=== PATIENT | female | born 1965 | race Caucasian/White ===

== ENCOUNTER 2018-07-27 20:21 | Observation (INO) | payer BC, OTHER ==
--- NOTE | 2018-07-27 20:56 | PDOC ---
Attending Attestation - HPI HPI: This patient is a 53 year old female with PMHx of IDDM, HLD, HTN, seizure disorder, diabetic neuropathy, [place], chronic pancreatitis, depression and other psych issues, LENIN on CPAP, asthma, with complaints of 1 day history of " pancreas pain" clarified as RUQ and RLQ pain, polydipsia, polyuria, polyphagia, 2 episodes of diarrhea, +chronic nausea and back pain 2/2 chronic pancreatitis, chills, dizziness clarified as near-syncopal sensation (reports frequent falls but denies recent fall). States she was told by PMD that her blood sugar was very high and was instructed to present to EDs an appointment on Aug 02 for endoscopy by her GI doctor at [facility]. Patient states that her diet is very limited due to her 'pancreas' pain and consists of applesauce, jello, and mainly veggies. She also reports that she is very depressed over her recent weightloss (140lbs) over the past 2 months. Social Hx: . Smokes 2 cigarettes daily, no EtOH, no illicit substances. PSHx of bowel surgery 2/2 obstruction 3 prior hospitalizations for hyperglycemic states requiring insulin gtt. <Aditi Aragon - Last Filed: 07/27/18 22:08> - Resident Resident Name: Jarrod Santos - ED Attending Attestation I have performed the following: I have examined & evaluated the patient, The case was reviewed & discussed with the resident, I agree w/resident's findings & plan, Exceptions are as noted - Physicial Exam PE: 07/27/18 23:11 GENERAL: The patient is in no acute distress, pt intermittently tearful HEAD: Normal EYES: PERRLA, EOMI, sclera anicteric, conjunctiva clear. ENT: Ears normal, nares patent, oropharynx clear without exudates. Dry mucous membranes. Edentous. NECK: Normal range of motion, supple without lymphadenopathy, JVD, or masses. LUNGS: Breath sounds equal, clear to auscultation bilaterally. No wheezes HEART:Regular rate and rhythm, normal S1 and S2 without murmur, rub or gallop. ABDOMEN: Soft, nontender, normoactive bowel sounds. No guarding EXTREMITIES: Normal range of motion, no edema. NEUROLOGICAL: Cranial nerves II through XII grossly intact. Normal speech. No focal neurological deficits. MUSCULOSKELETAL: Back non-tender to palpation SKIN: Warm, Dry, normal turgor, no rashes or lesions noted. - Medical Decision Making 07/27/18 23:10 Laboratory Tests 07/27/18 07/27/18 21:45 21:59 WBC 9.4 Hgb 14.1 Hct 40.5 Plt Count 305 Urine Blood Negative Urine Nitrite Negative Ur Leukocyte Esterase Negative 07/27/18 23:32 Laboratory Tests 07/27/18 22:47 Acetone, Qual Positive,trace 07/28/18 00:08 Laboratory Tests 07/27/18 22:47 Sodium 136 Potassium 4.1 Chloride 101 Carbon Dioxide 27 BUN 7 Creatinine 0.8 Random Glucose 538 H* Continue IV hydration Will give insulin Will place on observation <Gloria Lynch - Last Filed: 07/28/18 00:09>
[2018-07-27] MEDS ORDERED: LACTATED RINGERS SOLUTION 1000 ML INFUS.BAG IV ONE (20:57)
[2018-07-27] MEDS ORDERED: METOCLOPRAMIDE HCL INJECTION 10 MG/2 ML VIAL IVPUSH ONE (21:13)
--- NOTE | 2018-07-27 21:13 | PDOC ---
History of Present Illness - General Chief Complaint: Blood Sugar Problem Stated Complaint: HYPERGLYCEMIA Time Seen by Provider: 07/27/18 20:34 History Source: Patient Exam Limitations: No Limitations - History of Present Illness Initial Comments: Patient is a 53 y/o F w/ PMHx IDDM, HLD, HTN, Sz disorder, diabetic neuropathy, [place], chronic pancreatitis, depression and other psychiatric issues, LENIN on CPAP, asthma, PSHx of bowel surgery 2/2 obstruction, 3 prior hospitalizations for hyperglycemic states requiring insulin gtt. C/o 1 day h/o "pancreas pain" clarified as RUQ and RLQ pain, polydipsia and, polyuria 2 episodes of diarrhea, +chronic nausea and back pain 2/2 chronic pancreatitis, +chills, +dizziness clarified as near-syncopal sensation (reports frequent falls but denies recent fall). States she was told by PMD that her blood sugar was very high and was instructed to present to ED. Additionally reports 140lb weight loss over past 2 months 2/2 chronic pancreatitis. Smokes 2 cigarettes daily, no EtOH, no illicit substances. Home medication list obtained over phone from home health aide: Creon, oxycodone 30mg, seroquel, lexapro, zofran, escitalopram, albuterol, topamax, ASA 81, Xanax 2mg, Gabapentin 800 TID, Humalog. 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 07/27/18 21:04 Past History - Travel Traveled outside of the country in the last 30 days: No Close contact w/someone who was outside of country & ill: No - Past Medical History Allergies/Adverse Reactions: Allergies Allergy/AdvReac Type Severity Reaction Status Date / Time No Known Allergies Allergy Verified 07/27/18 20:24 - Suicide/Smoking/Psychosocial Hx Smoking History: Never smoked Have you smoked in the past 12 months: No Information on smoking cessation initiated: No Hx Alcohol Use: No Drug/Substance Use Hx: No Review of Systems - Review of Systems Comments:: As per HPI 07/27/18 21:14 *Physical Exam - Vital Signs Last Vital Signs Temp Pulse Resp BP Pulse Ox 97.3 F L 93 H 18 140/92 96 07/27/18 20:24 07/27/18 20:24 07/27/18 20:24 07/27/18 20:24 07/27/18 20:24 - Physical Exam Comments: Gen: A&Ox3, NAD HEENT: NC/AT, PERRLA, EOMI, MMM Neck: Supple, NT, no LAD, no JVD CV: RRR no m/r/g Resp: mild diffuse wheezing Abd: +bs, soft, TTP in RLQ and RUQ Ext: 2+ pulses, wwp, no edema MSK: right flank tenderness, no CVA tenderness, no focal spinal tenderness Neuro: no CN deficits, 5/5 motor strength throughout, Pt affirms total loss of sensation in LE distal to knees b/l and UE distal to wrists b/l Psych: tangential, confused Skin: warm, dry, normal turgor 07/27/18 21:17 Moderate Sedation - Procedure Monitoring Vital Signs: Procedure Monitoring Vital Signs Temperature 97.3 F L 07/27/18 20:24 Pulse Rate 93 H 07/27/18 20:24 Respiratory Rate 18 07/27/18 20:24 Blood Pressure 140/92 07/27/18 20:24 O2 Sat by Pulse Oximetry (%) 96 07/27/18 20:24 ED Treatment Course - LABORATORY CBC & Chemistry Diagram: 07/27/18 21:45 07/27/18 22:47 - RADIOLOGY Radiology Studies Ordered: Category Date Time Status ABDOMEN US [US] Stat Ultrasound 07/27/18 20:57 Ordered Medical Decision Making - Medical Decision Making H&P raise broad differential including DKA/HHS, gastroparesis, pancreatitis flare. Ordered CBC, CMP, Mg, Phos, Lipase, UA, serum acetone, FSG, Trop, EKG, RUQ US. 1L bolus LR, Reglan empirically for nausea and possible gastroparesis, 1 duoneb. Will await glucose and other lab results for further decision-making. 07/27/18 21:02 CBC wnl. 07/27/18 22:02 Chemistries hemolyzed. Re-ordered. 07/27/18 22:08 UA 3+ glucose otherwise negative. 07/27/18 22:32 FSG over-range. 07/27/18 22:36 EKG benign. Positive trace acetone. 07/27/18 23:31 Glucose 538, K wnl. Will give 10 units regular insulin now and in 2 hours, BGM q2h and BMP q4h. 07/28/18 00:11 Abd US negative. 07/28/18 00:27 Repeat FSG 339. Will re-check FSG with upcoming BMP and administer further insulin if indicated. D/w Dr. Agrawal and Dr. Esparza, will admit to med/surg obs. 07/28/18 02:31 *DC/Admit/Observation/Transfer Diagnosis at time of Disposition: Hyperglycemia without ketosis - Discharge Dispostion Condition at time of disposition: Guarded Decision to Admit order: Yes - Referrals - Patient Instructions - Post Discharge Activity
[2018-07-27] MEDS ORDERED: ALBUTEROL SO4 2.5/IPRATROPIUM 0.5 INH SOL 3 ML VIAL.NEB. NEB ONE ×2 (21:15→22:37)
[2018-07-27 21:58] LABS: BASO % 0.5 % (0-2.0); EOS % 1.3 % (0-4.5); HEMATOCRIT 40.5 % (32.4-45.2); HEMOGLOBIN 14.1 GM/dL (10.7-15.3); MCH 32.4 pg (25.7-33.7); MCHC 34.8 g/dl (32.0-36.0); MEAN CELL VOLUME 93.3 fl (80-96); MONO % 5.6 % (3.8-10.2); NEUT % 48.6 % (42.8-82.8); PLATELET COUNT 305 K/MM3 (134-434); RBC 4.34 M/mm3 (3.60-5.2); RDW 14.4 % (11.6-15.6); WHITE BLOOD COUNT 9.4 K/mm3 (4.0-10.0)
[2018-07-27 22:12] LABS: URINE APPEARANCE CLEAR; URINE BILIRUBIN NEGATIVE (<2.0 mg/dL); URINE COLOR COLORLESS; URINE GLUCOSE (UA) 3+ (NEGATIVE); URINE KETONE NEGATIVE (NEGATIVE); URINE LEUK ESTERASE NEGATIVE (NEGATIVE); URINE NITRITE NEGATIVE (NEGATIVE); URINE PROTEIN NEGATIVE (NEGATIVE); URINE UROBILINOGEN NEGATIVE mg/dL (0.2-1.0)
[2018-07-27] MEDS ORDERED: MORPHINE SULFATE 2 MG/ML VIAL IVPUSH ONE ×2 (22:36→22:48)
[2018-07-27] MEDS ORDERED: METOCLOPRAMIDE HCL INJECTION 10 MG/2 ML VIAL ONE (22:37)
[2018-07-27] MEDS ORDERED: MORPHINE SULFATE 2 MG/ML VIAL ONE ×2 (22:37→22:51)
[2018-07-27] MEDS ORDERED: SODIUM CHLORIDE 1,000 ML IV STA (22:38)
[2018-07-28 00:07] LABS: ALK PHOS 93 U/L (45-117); ANION GAP 7 MMOL/L (8-16); BILIRUBIN,TOTAL 0.2 mg/dL (0.2-1); BLOOD UREA NITROGEN 7 mg/dL (7-18); CALCIUM 8.6 mg/dL (8.5-10.1); CHLORIDE 101 mmol/L (98-107); CO2 27 mmol/L (21-32); CREATININE 0.8 mg/dL (0.55-1.3); GLUCOSE,RANDOM 538 mg/dL (74-106); LIPASE 193 U/L (73-393); MAGNESIUM 2.2 mg/dL (1.8-2.4); PHOSPHOROUS 3.1 mg/dL (2.5-4.9); POTASSIUM 4.1 mmol/L (3.5-5.1); SGOT/AST 8 U/L (15-37); SGPT/ALT 14 U/L (13-61); SODIUM 136 mmol/L (136-145); TOT PROT 6.5 g/dl (6.4-8.2)
[2018-07-28] MEDS ORDERED: INSULIN REGULAR HUMAN 100 UNITS/ML *VIAL IVPUSH ONE (00:12)
[2018-07-28] MEDS ORDERED: SODIUM CHLORIDE 1,000 ML IV SCH ×2 (00:15→04:45)
[2018-07-28] MEDS ORDERED: INSULIN REGULAR HUMAN 100 UNITS/ML *VIAL ONE ×3 (01:10→03:58)
[2018-07-28] MEDS ORDERED: INSULIN REGULAR HUMAN 100 UNITS/ML *VIAL SQ ONE ×2 (02:00→04:00)
--- NOTE | 2018-07-28 03:29 | PN ---
Teaching Attending Note Name of Resident: Abdiel Agrawal ATTENDING PHYSICIAN STATEMENT I saw and evaluated the patient. I reviewed the resident's note and discussed the case with the resident. I agree with the resident's findings and plan as documented. SUBJECTIVE: Patient is a 53 year old woman who has PMHx of Insulin-treated DM, bowel surgery after obstruction, HLD, HTN, seizure disorder, diabetic neuropathy, [place], chronic pancreatitis, depression, LENIN on CPAP, asthma, with complaints of 1 day history of "pancreas pain" clarified as RUQ and RLQ pain. Also had polydipsia, polyuria, polyphagia, 2 episodes of diarrhea, +chronic nausea and back pain 2/2 chronic pancreatitis and chills. Also had dizziness clarified as near-syncopal sensation (reports frequent falls but denies recent fall). States she was told by PMD that her blood sugar was very high and was instructed to present to ER. Has an appointment on Aug 02 for endoscopy by her GI doctor at [facility]. Patient states that her diet is very limited due to her 'pancreas' pain and consists of applesauce, jello, and mainly veggies. She also reports that she is very depressed over her recent weight loss (?140lbs) over the past 2 months. She smokes 2 cigarettes daily, does not abuse EtOH or illicit drugs. OBJECTIVE: Alert Vital Signs Period Temp Pulse Resp BP Sys/Kang Pulse Ox Last 24 Hr 97.3 F 93 18 140/92 96 HEENT: No Jaundice, eye redness or discharge, PERRLA, EOMI. Normocephalic, atraumatic. External ears are normal and hearing is grossly intact. No nasal discharge. Neck: Supple, nontender. No palpable adenopathy or thyromegaly. No JVD Chest: Good effort. Clear to auscultation and percussion. Heart: Regular. No S3, rub or murmur Abdomen: Not distended, soft, nontender and no HSM. No rebound or guarding. Normoactive bowel sounds. Ext: Peripheral pulses intact. No leg edema. Skin: Warm and dry. No petechiae, rash or ecchymosis. Neuro: Alert. Oriented x3. CN 2-12 grossly intact. Sensation grossly intact in all four extremities and DTR are symmetric. Current Medications Generic Name Dose Route Start Last Admin Trade Name Freq PRN Reason Stop Dose Admin Sodium Chloride 1,000 mls @ 150 mls/hr 07/28/18 00:15 07/28/18 01:22 Normal Saline - IV 150 mls/hr ASDIR LANE Administration Insulin Human Regular 10 units 07/28/18 04:00 Novolin R Vial *For Ivpush Or Iv Drip Only* SQ 07/28/18 04:01 ONCE ONE Home Medications Medication Instructions Recorded Aspirin [ASA -] 81 mg PO DAILY 07/28/18 Escitalopram Oxalate [Lexapro -] 20 mg PO DAILY 07/28/18 Gabapentin 800 mg PO TID 07/28/18 Ondansetron HCl [Zofran] 4 mg PO Q6H PRN 07/28/18 Oxycodone HCl [Oxycodone HCl ER] 30 mg PO Q12H 07/28/18 Quetiapine Fumarate [Seroquel] 300 mg PO HS 07/28/18 Topiramate [Topamax] 100 mg PO DAILY 07/28/18 Abnormal Lab Results 07/27/18 07/27/18 07/27/18 21:45 21:59 22:47 MPV 12.0 H Lymphocytes % 44.0 H Anion Gap 7 L Random Glucose 538 H* AST 8 L Albumin 3.0 L Urine Glucose (UA) 3+ H ASSESSMENT AND PLAN: 1. Uncontrolled DM - No obvious precipitating factor. Got 2 doses of 10 units IV insulin in the ER. For now, we will hold the home diabetes drugs and implement sliding scale insulin regimen. Will also give patient IV and PO KCL since correction of hyperglycemia will likely reduce serum K. Provide comprehensive diabetes care with patient teaching and counseling about the importance of adherence to prescribed diabetes regimen, euglycemia, eye care and foot care. 2. Tobacco Use We will provide patient all the necessary assistance to facilitate smoking cessation and prescribe Nicotine patch. 3. Overweight - Will provide patient all the necessary assistance, counseling and positive reinforcement to facilitate weight loss. Consult grinder and plater. 4. Hypertension - Restart outpatient antihypertensive drugs and revise regimen to ensure smooth [id number] good BP control. Contact family/pharmacy to ensure that patient as an ACEI or ARB as part of her regimen. Nonpharmacologic measures to control hypertension like weight loss, smoking cessation, salt restriction and exercise discussed. 5. Hypoalbuminemia - Possibly due to combined effects of malnutrition and inflammation associated with comorbid chronic conditions. Will ensure adequate dietary protein intake and also consult grinder and plater. 6. DVT prophylaxis - Lovenox 40 mg SQ q 24 hours. 7. Advance directives - Full code
[2018-07-28] MEDS ORDERED: POTASSIUM CHLORIDE TABS 20 MEQ TABLET.ER (FP) PO ONE ×2 (03:41→03:57)
[2018-07-28] MEDS ORDERED: KCL 10 MEQ IVPB 10 MEQ/100 ML INFUS.BAG IVPB SCH (03:45)
[2018-07-28] MEDS ORDERED: SODIUM CHLORIDE 0.9%/KCL 20 MEQ/1,000 ML INFUS.BAG IV SCH (03:45)
--- NOTE | 2018-07-28 04:14 | HP ---
CHIEF COMPLAINT: Elevated blood glucose, abdominal pain PCP: HISTORY OF PRESENT ILLNESS: Patient is a 53 year old female with history of chronic pancreatitis, insulin dependent diabetes mellitus, neuropathy, hypertension, hyperlipidemia, obstructive sleep apnea on CPAP, seizure disorder, depression, presents after being told by her physician that her blood glucose was elevated. Patient endorses poor compliance with her fingerstick blood glucose monitoring. Patient also endorses abdominal pain localized to right upper and lower abdominal quadrants that she describes as "pancreas pain". She states pain began insiduously yesterday without inciting event. Pain described as "labor pains", currently 4/10. She denies palliative features, however endorses pain provoked with eating. She endorses chronically diminished appetite, nausea, secondary to her chronic pancreatitis. She endorses daily vomiting that is clear colored, nonbloody nonbillious. Patient endorses unintentional 140lbs weight loss over the past two months. She states that her weight loss has been contributing to her feelings of depression. She denies suicidal, homocidal ideation. She does endorse subjective fevers, chills. ER course was notable for: (1) Insulin Novolog 10units X2, (2) Reglan 10mg, Morphine 2mg, IVNS 1 liter, IVLR 1 liter (3) Troponin 0.12 PAST MEDICAL HISTORY: chronic pancreatitis, insulin dependent diabetes mellitus , neuropathy, hypertension, hyperlipidemia, obstructive sleep apnea on CPAP, seizure disorder, depression PAST SURGICAL HISTORY: bowel surgery for prior obstruction, x 7 last one 21 years ago Social History: Smoking: currently smokes 2 cigarettes a day, for the past 7 years Alcohol: denies Drugs: denies Family History: Mother: hypertension Father: from complications of diabetes mellitus at 41 years old Allergies Penicillin: patient reports anaphyalxis No Known Allergies Allergy (Verified 07/27/18 20:24) HOME MEDICATIONS: Home Medications Medication Instructions Recorded Aspirin [ASA -] 81 mg PO DAILY 07/28/18 Escitalopram Oxalate [Lexapro -] 20 mg PO DAILY 07/28/18 Gabapentin 800 mg PO TID 07/28/18 Ondansetron HCl [Zofran] 4 mg PO Q6H PRN 07/28/18 Oxycodone HCl [Oxycodone HCl ER] 30 mg PO Q12H 07/28/18 Quetiapine Fumarate [Seroquel] 300 mg PO HS 07/28/18 Topiramate [Topamax] 100 mg PO DAILY 07/28/18 REVIEW OF SYSTEMS CONSTITUTIONAL: Admits: subjective fevers, chills, generalzied weakness, loss of appetite, weight change HEENT: Absent: rhinorrhea, nasal congestion, throat pain, throat swelling, difficulty swallowing, mouth swelling, ear pain, eye pain, visual changes CARDIOVASCULAR: Absent: chest pain, syncope, palpitations, irregular heart rate, lightheadedness , peripheral edema RESPIRATORY: Absent: cough, shortness of breath, dyspnea with exertion, orthopnea, wheezing, stridor, hemoptysis GASTROINTESTINAL: Admits: abdominal pain, abdominal distension, nausea, vomiting, diarrhea. Absent : melena, hematochezia GENITOURINARY: Absent: dysuria, frequency, urgency, hesitancy, hematuria, flank pain, genital pain MUSCULOSKELETAL: Absent: myalgia, arthralgia, joint swelling, back pain, neck pain SKIN: Absent: rash, itching, pallor NEUROLOGIC: Absent: headache, focal weakness or paresthesias, dizziness, unsteady gait, seizure, mental status changes, bladder or bowel incontinence PSYCHIATRIC: Admits: depression. Absent: suicidal or homicidal ideation, hallucinations. PHYSICAL EXAMINATION Vital Signs - 24 hr 07/27/18 20:24 Temperature 97.3 F L Pulse Rate 93 H Respiratory 18 Rate Blood Pressure 140/92 O2 Sat by Pulse 96 Oximetry (%) GENERAL: Patient is awake, alert, oriented, in no acute distress. HEAD: Normocephalic, atraumatic EYES: Pupils equal, round and reactive to light, extraocular movements intact, sclera anicteric, conjunctiva clear. EARS, NOSE, THROAT: Oropharynx clear without exudates. Dry mucous membranes. NECK: Supple without lymphadenopathy, or JVD LUNGS: Breath sounds equal, clear to auscultation bilaterally. No wheezes, and no crackles. No accessory muscle use. HEART: Regular rate and rhythm, normal S1 and S2 without murmur, rub or gallop. ABDOMEN: Obese. Soft, tender to deep palpation at right upper and lower abdominal quadrants. No guarding, no rebound tenderness elicited. Normoactive bowel sounds X4 quadrants. No hepatomegaly palpated or percussed. MUSCULOSKELETAL: Normal range of motion at all joints. No bony deformities or tenderness. EXTREMITIES: 2+ radial pulses bilaterally, 2+ dorsalis pedis pulses bilaterally. No calf tenderness. Trace peripheral edema bilaterally. NEUROLOGICAL: Cranial nerves II-XII intact. Normal speech. No gross focal deficits. PSYCHIATRIC: Cooperative upon my encounter. SKIN: Warm, dry. Laboratory Results - last 24 hr 07/27/18 07/27/18 07/27/18 21:45 21:45 21:45 WBC 9.4 RBC 4.34 Hgb 14.1 Hct 40.5 MCV 93.3 MCH 32.4 MCHC 34.8 RDW 14.4 Plt Count 305 MPV 12.0 H Absolute Neuts (auto) 4.6 Neutrophils % 48.6 Lymphocytes % 44.0 H Monocytes % 5.6 Eosinophils % 1.3 Basophils % 0.5 Nucleated RBC % 0 Sodium Cancelled Potassium Cancelled Chloride Cancelled Carbon Dioxide Cancelled Anion Gap Cancelled BUN Cancelled Creatinine Cancelled Creat Clearance w eGFR Cancelled POC Glucometer Random Glucose Cancelled Calcium Cancelled Phosphorus Cancelled Magnesium Cancelled Total Bilirubin Cancelled AST Cancelled ALT Cancelled Alkaline Phosphatase Cancelled Troponin I Cancelled Total Protein Cancelled Albumin Cancelled Lipase Cancelled Urine Color Urine Appearance Urine pH Ur Specific [place] Urine Protein Urine Glucose (UA) Urine Ketones Urine Blood Urine Nitrite Urine Bilirubin Urine Urobilinogen Ur Leukocyte Esterase Acetone, Qual 07/27/18 07/27/18 07/27/18 21:45 21:59 22:47 WBC RBC Hgb Hct MCV MCH MCHC RDW Plt Count MPV Absolute Neuts (auto) Neutrophils % Lymphocytes % Monocytes % Eosinophils % Basophils % Nucleated RBC % Sodium 136 Potassium 4.1 Chloride 101 Carbon Dioxide 27 Anion Gap 7 L BUN 7 Creatinine 0.8 Creat Clearance w eGFR > 60 POC Glucometer Random Glucose 538 H* Calcium 8.6 Phosphorus 3.1 Magnesium 2.2 Total Bilirubin 0.2 AST 8 L ALT 14 Alkaline Phosphatase 93 Troponin I Total Protein 6.5 Albumin 3.0 L Lipase 193 Urine Color Colorless Urine Appearance Clear Urine pH 7.0 Ur Specific [place] 1.032 Urine Protein Negative Urine Glucose (UA) 3+ H Urine Ketones Negative Urine Blood Negative Urine Nitrite Negative Urine Bilirubin Negative Urine Urobilinogen Negative Ur Leukocyte Esterase Negative Acetone, Qual Cancelled Positive,trace 07/28/18 02:24 WBC RBC Hgb Hct MCV MCH MCHC RDW Plt Count MPV Absolute Neuts (auto) Neutrophils % Lymphocytes % Monocytes % Eosinophils % Basophils % Nucleated RBC % Sodium Potassium Chloride Carbon Dioxide Anion Gap BUN Creatinine Creat Clearance w eGFR POC Glucometer [id number] Random Glucose Calcium Phosphorus Magnesium Total Bilirubin AST ALT Alkaline Phosphatase Troponin I Total Protein Albumin Lipase Urine Color Urine Appearance Urine pH Ur Specific [place] Urine Protein Urine Glucose (UA) Urine Ketones Urine Blood Urine Nitrite Urine Bilirubin Urine Urobilinogen Ur Leukocyte Esterase Acetone, Qual ASSESSMENT/PLAN: Patient is a 53 year old female with history of chronic pancreatitis, insulin dependent diabetes mellitus, neuropathy, hypertension, hyperlipidemia, obstructive sleep apnea on CPAP, seizure disorder, depression, presents after being told by her physician that her blood glucose was elevated. Hyperglycemia, insulin dependent diabetes mellitus -Patient is poorly compliant with her home insulin and fingerstick blood glucose monitoring. -Blood glucose 538 upon admission -Currently no anion gap -Patient received Insulin Novolog 10mg x2 doses. -Insulin sliding scale Q4H -Supplement potassium with KCl 40meq PO -Fingerstick blood glucose monitoring Q4H -Follow BMP with morning labs Troponinemia -EKG shows normal sinus rhythm at 90BPM. No ischemic ST-T wave changes. -Troponin 0.12. Likely secondary to demand ischemia. Will trend to peak. -Aspirin 81mg PO daily Depression -Escitalopram 20mg PO daily -Seroquel 300mg PO HS -Psychiatry evaluation (Dr. Tolliver) Chronic pancreatitis -Pain likely secondary to chronic pancreatitis. Patient endorses that she has similar pain intermittently since diagnosis of pancreatitis. -Abdominal ultrasound shows liver enlarged to 19.6cm. Pancreas grossly unremarkable. -Patient follows up with outpatient respiratory support technician Diabetic neuropathy -Gabapentin 800mg PO TID Seizures -Topamax 100mg PO daily -Seizure precautions -Fall precautions Hypertension, Hyperlipidemia -Will need to reconcile home medications FEN -IV normal saline at 75mL / hour -Follow BMP -Diabetic diet Prophylaxis -Early ambulation, anticipate short stay Disposition -Observation, Telemetry floor. Patient requires medical reconciliation. [facility] pharmacy currently closed. Visit type - Emergency Visit Emergency Visit: Yes ED Registration Date: 07/28/18 Care time: The patient presented to the Emergency Department on the above date and was hospitalized for further evaluation of their emergent condition. - New Patient This patient is new to me today: Yes Date on this admission: 07/28/18 - Critical Care Critical Care patient: No
[2018-07-28 05:11] LABS: ANION GAP 6 MMOL/L (8-16); BLOOD UREA NITROGEN 10 mg/dL (7-18); CALCIUM 8.3 mg/dL (8.5-10.1); CHLORIDE 109 mmol/L (98-107); CO2 28 mmol/L (21-32); CREATININE 0.6 mg/dL (0.55-1.3); POTASSIUM 3.6 mmol/L (3.5-5.1); SODIUM 142 mmol/L (136-145)
[2018-07-28 05:15] LABS: GLUCOSE,RANDOM 305 mg/dL (74-106)
[2018-07-28 06:32] VITALS: BMI 30.4
[2018-07-28] MEDS: GABAPENTIN 400 MG CAPSULE (FP) PO SCH ×3 (06:36→21:18)
[2018-07-28] MEDS: INSULIN SLIDING SCALE (NOVOLOG) 1 VIAL SQ SCH ×4 (06:39→21:45)
[2018-07-28] MEDS ORDERED: OXYCODONE HCL 30 MG PO SCH (10:45)
[2018-07-28] MEDS ORDERED: LIPASE/PROTEASE/AMYLASE 6,000 UNIT CAPSULE PO SCH (10:46)
[2018-07-28] MEDS ORDERED: PT OWN MED DRAWER 7, Y5N ONE ×2 (10:58→16:17)
[2018-07-28] MEDS: ESCITALOPRAM OXALATE 20 MG TABLET (FP) PO SCH (11:10)
[2018-07-28] MEDS: TOPIRAMATE 100 MG TABLET PO SCH (11:11)
[2018-07-28] MEDS: ASPIRIN 81 MG CHEWABLE TABLETS PO SCH (11:11)
[2018-07-28] MEDS: oxyCODONE HCL 20 MG SUSTAINED ACTING TABLET PO SCH ×2 (11:15→21:17)
[2018-07-28] MEDS: oxyCODONE HCL 10 MG SUSTAINED ACTING TABLET PO SCH ×2 (11:15→21:18)
[2018-07-28 11:35] LABS: ALBUMIN 2.7 g/dl (3.4-5.0); ALK PHOS 69 U/L (45-117); ANION GAP 6 MMOL/L (8-16); BILIRUBIN,TOTAL 0.3 mg/dL (0.2-1); BLOOD UREA NITROGEN 9 mg/dL (7-18); CALCIUM 8.6 mg/dL (8.5-10.1); CHLORIDE 116 mmol/L (98-107); CO2 27 mmol/L (21-32); CREATININE 0.5 mg/dL (0.55-1.3); GLUCOSE,RANDOM 97 mg/dL (74-106); POTASSIUM 4.4 mmol/L (3.5-5.1); SGOT/AST 8 U/L (15-37); SGPT/ALT 12 U/L (13-61); SODIUM 148 mmol/L (136-145); TOT PROT 5.7 g/dl (6.4-8.2)
--- NOTE | 2018-07-28 15:34 | EKG ---
Test Reason : Blood Pressure : / mmHG Vent. Rate : 083 BPM Atrial Rate : 083 BPM P-R Int : 140 ms QRS Dur : 084 ms QT Int : 352 ms P-R-T Axes : 067 052 052 degrees QTc Int : 413 ms NORMAL SINUS RHYTHM NORMAL ECG WHEN COMPARED WITH ECG OF 27-JUL-2018 23:23, NO SIGNIFICANT CHANGE WAS FOUND Confirmed by JULIO VILLA MD ([id number]) on 07/28/2018 3:34:18 PM Referred By: Lenore LOWERY Confirmed By:JULIO VILLA MD
--- NOTE | 2018-07-28 15:37 | EKG ---
Test Reason : Blood Pressure : / mmHG Vent. Rate : 090 BPM Atrial Rate : 090 BPM P-R Int : 142 ms QRS Dur : 088 ms QT Int : 354 ms P-R-T Axes : 081 062 061 degrees QTc Int : 433 ms POOR DATA QUALITY, INTERPRETATION MAY BE ADVERSELY AFFECTED NORMAL SINUS RHYTHM NORMAL ECG NO PREVIOUS ECGS AVAILABLE Confirmed by JULIO VILLA MD ([id number]) on 07/28/2018 3:36:58 PM Referred By: Confirmed By:JULIO VILLA MD
[2018-07-28] MEDS ORDERED: CREON PO SCH (16:30)
--- NOTE | 2018-07-28 16:50 | PN ---
Progress Note (short form) - Note Progress Note: SUBJECTIVE: Complains of R sided abdominal pain. No nausea/vomiting/diarrhea/ melena/hematochezia. No fever/chills. OBJECTIVE: Afebrile/Hemodynamically Stable. Last Vital Signs Temp Pulse Resp BP Pulse Ox 97.7 F 89 18 121/60 96 07/28/18 09:00 07/28/18 09:00 07/28/18 09:00 07/28/18 09:00 07/28/18 09:00 HEENT - Atraumatic, Normocephalic. Heart - S1, S2, RRR Lungs - clear to auscultation Abdomen - RUQ and RLQ tenderness ++. No guarding or rebound. Bowel Sounds normal. Extremities - no calf tenderness. Laboratory Results - last 24 hr 07/27/18 07/27/18 07/27/18 21:45 21:45 21:45 WBC 9.4 RBC 4.34 Hgb 14.1 Hct 40.5 MCV 93.3 MCH 32.4 MCHC 34.8 RDW 14.4 Plt Count 305 MPV 12.0 H Absolute Neuts (auto) 4.6 Neutrophils % 48.6 Lymphocytes % 44.0 H Monocytes % 5.6 Eosinophils % 1.3 Basophils % 0.5 Nucleated RBC % 0 Sodium Cancelled Potassium Cancelled Chloride Cancelled Carbon Dioxide Cancelled Anion Gap Cancelled BUN Cancelled Creatinine Cancelled Creat Clearance w eGFR Cancelled POC Glucometer Random Glucose Cancelled Calcium Cancelled Phosphorus Cancelled Magnesium Cancelled Total Bilirubin Cancelled AST Cancelled ALT Cancelled Alkaline Phosphatase Cancelled Troponin I Cancelled Total Protein Cancelled Albumin Cancelled Lipase Cancelled Urine Color Urine Appearance Urine pH Ur Specific [place] Urine Protein Urine Glucose (UA) Urine Ketones Urine Blood Urine Nitrite Urine Bilirubin Urine Urobilinogen Ur Leukocyte Esterase Acetone, Qual 07/27/18 07/27/18 07/27/18 21:45 21:59 22:47 WBC RBC Hgb Hct MCV MCH MCHC RDW Plt Count MPV Absolute Neuts (auto) Neutrophils % Lymphocytes % Monocytes % Eosinophils % Basophils % Nucleated RBC % Sodium 136 Potassium 4.1 Chloride 101 Carbon Dioxide 27 Anion Gap 7 L BUN 7 Creatinine 0.8 Creat Clearance w eGFR > 60 POC Glucometer Random Glucose 538 H* Calcium 8.6 Phosphorus 3.1 Magnesium 2.2 Total Bilirubin 0.2 AST 8 L ALT 14 Alkaline Phosphatase 93 Troponin I Total Protein 6.5 Albumin 3.0 L Lipase 193 Urine Color Colorless Urine Appearance Clear Urine pH 7.0 Ur Specific [place] 1.032 Urine Protein Negative Urine Glucose (UA) 3+ H Urine Ketones Negative Urine Blood Negative Urine Nitrite Negative Urine Bilirubin Negative Urine Urobilinogen Negative Ur Leukocyte Esterase Negative Acetone, Qual Cancelled Positive,trace 07/28/18 07/28/18 07/28/18 02:24 04:12 04:12 WBC RBC Hgb Hct MCV MCH MCHC RDW Plt Count MPV Absolute Neuts (auto) Neutrophils % Lymphocytes % Monocytes % Eosinophils % Basophils % Nucleated RBC % Sodium 142 Potassium 3.6 Chloride 109 H Carbon Dioxide 28 Anion Gap 6 L BUN 10 Creatinine 0.6 Creat Clearance w eGFR > 60 POC Glucometer 339.65663 Random Glucose 305 H* Calcium 8.3 L Phosphorus Magnesium Total Bilirubin AST ALT Alkaline Phosphatase Troponin I 0.12 H Total Protein Albumin Lipase Urine Color Urine Appearance Urine pH Ur Specific [place] Urine Protein Urine Glucose (UA) Urine Ketones Urine Blood Urine Nitrite Urine Bilirubin Urine Urobilinogen Ur Leukocyte Esterase Acetone, Qual 07/28/18 07/28/18 07/28/18 04:57 06:38 10:55 WBC RBC Hgb Hct MCV MCH MCHC RDW Plt Count MPV Absolute Neuts (auto) Neutrophils % Lymphocytes % Monocytes % Eosinophils % Basophils % Nucleated RBC % Sodium 148 H Potassium 4.4 Chloride 116 H Carbon Dioxide 27 Anion Gap 6 L BUN 9 Creatinine 0.5 L Creat Clearance w eGFR > 60 POC Glucometer [phone] Random Glucose 97 Calcium 8.6 Phosphorus Magnesium Total Bilirubin 0.3 AST 8 L ALT 12 L Alkaline Phosphatase 69 Troponin I 0.10 H Total Protein 5.7 L Albumin 2.7 L Lipase Urine Color Urine Appearance Urine pH Ur Specific [place] Urine Protein Urine Glucose (UA) Urine Ketones Urine Blood Urine Nitrite Urine Bilirubin Urine Urobilinogen Ur Leukocyte Esterase Acetone, Qual 07/28/18 11:30 WBC RBC Hgb Hct MCV MCH MCHC RDW Plt Count MPV Absolute Neuts (auto) Neutrophils % Lymphocytes % Monocytes % Eosinophils % Basophils % Nucleated RBC % Sodium Potassium Chloride Carbon Dioxide Anion Gap BUN Creatinine Creat Clearance w eGFR POC Glucometer 135 Random Glucose Calcium Phosphorus Magnesium Total Bilirubin AST ALT Alkaline Phosphatase Troponin I Total Protein Albumin Lipase Urine Color Urine Appearance Urine pH Ur Specific [place] Urine Protein Urine Glucose (UA) Urine Ketones Urine Blood Urine Nitrite Urine Bilirubin Urine Urobilinogen Ur Leukocyte Esterase Acetone, Qual Current Medications Generic Name Dose Route Start Last Admin Trade Name Bozena PRN Reason Stop Dose Admin Aspirin 81 mg 07/28/18 10:00 07/28/18 11:11 Asa - PO [address] Administration Escitalopram Oxalate 20 mg 07/28/18 10:00 07/28/18 11:10 Lexapro - PO [address] Administration Gabapentin 800 mg 07/28/18 06:00 07/28/18 14:36 Neurontin - PO [address] Administration Sodium Chloride 1,000 mls @ 75 mls/hr 07/28/18 04:45 07/28/18 04:49 Normal Saline - IV 75 mls/hr ASDIR LANE Administration Insulin Aspart 1 vial 07/28/18 07:00 07/28/18 12:38 Novolog Vial Sliding Scale - SQ Not Given ACHS [facility] Protocol Oxycodone HCl 10 mg 07/28/18 11:15 07/28/18 11:15 Oxycontin - PO [address] Administration Oxycodone HCl 20 mg 07/28/18 11:15 07/28/18 11:15 Oxycontin - PO [address] Administration Pancrelipase 12,000 cap 07/28/18 10:46 Shyla Kelly 6,000 Units Capsule PO BIDAC [facility] Quetiapine Fumarate 300 mg 07/28/18 22:00 Seroquel - PO HS [facility] Topiramate 100 mg 07/28/18 10:00 07/28/18 11:11 Topamax - PO [address] Administration Home Medications Medication Instructions Recorded Aspirin [ASA -] 81 mg PO DAILY 07/28/18 Shyla Kelly 6,000 Units Capsule 12,000 PO TID 07/28/18 Escitalopram Oxalate [Lexapro -] 20 mg PO DAILY 07/28/18 Gabapentin 800 mg PO TID 07/28/18 Insulin Lispro [Humalog] 12 unit SQ TID 07/28/18 Ondansetron HCl [Zofran] 4 mg PO Q6H PRN 07/28/18 Oxycodone HCl [Oxycodone HCl ER] 30 mg PO Q12H 07/28/18 Quetiapine Fumarate [Seroquel] 300 mg PO HS 07/28/18 Topiramate [Topamax] 100 mg PO DAILY 07/28/18 ASSESSMENT/PLAN 53 year old female with history of Chronic Pancreatitis, DM 2 with Neuropathy, HTN, HLD, LENIN on CPAP, Seizure Disorder, Depression, presents with abdominal discomfort and hyperglycemia. She also claims that she has almost daily nausea with emesis that is non-bloody. 1. R sided Abdominal discomfort - atypical for Pancreatitis, however patient claims that this is how her pancreatitis presents. Lipase wnl. Abdominal US - fatty liver LFTs normal. On Chronic analgesia with Oxycodone 30mg bid and Creon before meals. GI Consult. 2. DM 2 with Neuropathy - presented with Hyperglycemia despite compliance with home insulin regimen No acidosis or anion gap. Will resume home regimen (Lispro 12 units tid) and sliding scale. Continue Gabapentin 3. Elevated Troponin, etiology unclear. ECG - NSR. No acute ST/T changes. TnI max 0.12 Will continue Aspirin and consult Cardiology for further work-up. 4. Depression Continue Escitalopram and Seroquel. 5. Seizure Disorder - continue Topamax 6. HTN/HLD - does not appear to be on home meds for these. Further conifrmation with PCP required. DVT Px - Heparin SQ Visit type - Emergency Visit Emergency Visit: Yes ED Registration Date: 07/28/18 Care time: The patient presented to the Emergency Department on the above date and was hospitalized for further evaluation of their emergent condition. - New Patient This patient is new to me today: Yes Date on this admission: 07/29/18 - Critical Care Critical Care patient: No - Discharge Referral Referred to [facility] Med P.C.: No
[2018-07-28] MEDS: INSULIN (NOVOLOG) ASPART 100 UNITS/ML 10ML VIAL SQ SCH (17:16)
[2018-07-28] MEDS: HEPARIN NA (PORCINE) 5,000 UNITS/ML 1ML VIAL SQ SCH (21:16)
[2018-07-28] MEDS ORDERED: INSULIN (NOVOLOG) ASPART 100 UNITS/ML 10ML VIAL ONE (21:22)
[2018-07-28] MEDS ORDERED: QUEtiapine FUMARATE 100 MG TABLET (FP) PO SCH (22:00)
[2018-07-28] MEDS ORDERED: QUEtiapine FUMARATE 300 MG TABLET PO SCH (22:00)
[2018-07-29] MEDS: HEPARIN NA (PORCINE) 5,000 UNITS/ML 1ML VIAL SQ SCH ×2 (05:37→14:28)
[2018-07-29] MEDS: GABAPENTIN 400 MG CAPSULE (FP) PO SCH ×2 (05:37→17:21)
[2018-07-29] MEDS: INSULIN (NOVOLOG) ASPART 100 UNITS/ML 10ML VIAL SQ SCH (06:36)
[2018-07-29] MEDS: INSULIN SLIDING SCALE (NOVOLOG) 1 VIAL SQ SCH ×3 (06:39→17:21)
[2018-07-29 07:26] LABS: ANION GAP 7 MMOL/L (8-16); BLOOD UREA NITROGEN 10 mg/dL (7-18); CALCIUM 8.5 mg/dL (8.5-10.1); CHLORIDE 107 mmol/L (98-107); CO2 26 mmol/L (21-32); CREATININE 0.7 mg/dL (0.55-1.3); POTASSIUM 4.6 mmol/L (3.5-5.1); SODIUM 140 mmol/L (136-145)
[2018-07-29 07:30] LABS: GLUCOSE,RANDOM 430 mg/dL (74-106)
[2018-07-29] MEDS ORDERED: PT OWN MED DRAWER 7, Y5N ONE (10:02)
[2018-07-29] MEDS ORDERED: INSULIN (LEVEMIR) 100 UNITS/ML UNITS SQ ONE (10:44)
[2018-07-29] MEDS: ESCITALOPRAM OXALATE 20 MG TABLET (FP) PO SCH (10:47)
[2018-07-29] MEDS: oxyCODONE HCL 10 MG SUSTAINED ACTING TABLET PO SCH (10:47)
[2018-07-29] MEDS: oxyCODONE HCL 20 MG SUSTAINED ACTING TABLET PO SCH (10:47)
[2018-07-29] MEDS: ASPIRIN 81 MG CHEWABLE TABLETS PO SCH (10:48)
[2018-07-29] MEDS: LIPASE/PROTEASE/AMYLASE 6,000 UNIT CAPSULE PO SCH ×3 (10:48→17:42)
[2018-07-29] MEDS: TOPIRAMATE 100 MG TABLET PO SCH (10:48)
[2018-07-29 12:57] LABS: HEMATOCRIT 35.9 % (32.4-45.2); HEMOGLOBIN 12.4 GM/dL (10.7-15.3); MCH 32.8 pg (25.7-33.7); MCHC 34.6 g/dl (32.0-36.0); MEAN CELL VOLUME 94.8 fl (80-96); MEAN PLT VOLUME 9.9 fl (7.5-11.1); PLATELET COUNT 231 K/MM3 (134-434); RBC 3.78 M/mm3 (3.60-5.2); RDW 14.4 % (11.6-15.6); WHITE BLOOD COUNT 9.6 K/mm3 (4.0-10.0)
--- NOTE | 2018-07-29 13:05 | PN ---
Teaching Attending Note Name of Resident: Edd Esparza ATTENDING PHYSICIAN STATEMENT I saw and evaluated the patient. I reviewed the resident's note and discussed the case with the resident. I agree with the resident's findings and plan as documented. SUBJECTIVE: Complains of ongoing R sided abdominal pain and tenderness. No nausea/vomiting/diarrhea/melena/hematochezia. No fever/chills. OBJECTIVE: Afebrile/Hemodynamically Stable. Last Vital Signs Temp Pulse Resp BP Pulse Ox 98.2 F 72 18 118/78 98 07/29/18 06:00 07/29/18 08:52 07/29/18 08:52 07/29/18 08:52 07/29/18 05:00 HEENT - Atraumatic, Normocephalic. Heart - S1, S2, RRR Lungs - clear to auscultation Abdomen - RUQ and RLQ tenderness ++. No guarding or rebound. Bowel Sounds normal. Extremities - no calf tenderness. Laboratory Results - last 24 hr 07/27/18 07/28/18 07/28/18 22:14 16:27 21:12 Sodium Potassium Chloride Carbon Dioxide Anion Gap BUN Creatinine Creat Clearance w eGFR POC Glucometer > 400 313 338 Random Glucose Calcium 07/29/18 07/29/18 05:30 10:51 Sodium 140 Potassium 4.6 Chloride 107 Carbon Dioxide 26 Anion Gap 7 L BUN 10 Creatinine 0.7 Creat Clearance w eGFR > 60 POC Glucometer 295 Random Glucose 430 H* Calcium 8.5 Current Medications Generic Name Dose Route Start Last Admin Trade Name Justinq PRN Reason Stop Dose Admin Aspirin 81 mg 07/28/18 10:00 07/29/18 10:48 Asa - PO [address] Administration Escitalopram Oxalate 20 mg 07/28/18 10:00 07/29/18 10:47 Lexapro - PO [address] Administration Gabapentin 800 mg 07/28/18 06:00 07/29/18 05:37 Neurontin - PO [address] Administration Heparin Sodium (Porcine) 5,000 unit 07/28/18 22:00 07/29/18 05:37 Heparin - SQ 5,[address] Administration Insulin Aspart 1 vial 07/29/18 10:45 Novolog Vial Sliding Scale - SQ ACHS LANE Protocol Oxycodone HCl 10 mg 07/28/18 11:15 07/29/18 10:47 Oxycontin - PO [address] Administration Oxycodone HCl 20 mg 07/28/18 11:15 07/29/18 10:47 Oxycontin - PO [address] Administration Pancrelipase 2 cap 07/29/18 08:00 07/29/18 10:[address] 6,000 Units Capsule PO [address] Administration Quetiapine Fumarate 300 mg 07/28/18 22:00 07/28/18 21:46 Seroquel - PO Not Given HS LANE Topiramate 100 mg 07/28/18 10:00 07/29/18 10:48 Topamax - PO [address] Administration ASSESSMENT/PLAN 53 year old female with history of Chronic Pancreatitis, DM 2 with Neuropathy, HTN, HLD, LENIN on CPAP, Seizure Disorder, Depression, presents with abdominal discomfort and hyperglycemia. She also claims that she has almost daily nausea with emesis that is non-bloody. 1. R sided Abdominal discomfort - atypical for Pancreatitis, however patient claims that this is how her pancreatitis presents. Lipase wnl. Abdominal US - fatty liver LFTs normal. On Chronic analgesia with Oxycodone 30mg bid and Creon before meals. GI Consult requested. 2. DM 2 with Neuropathy - presented with Hyperglycemia despite compliance with home insulin regimen No acidosis or anion gap. Patient is apparently on Humalog 35 units twice daily with no long-acting insulin coverage - she is currently unhappy with this regimen as she feels it does not control her sugar and sometimes causes hypoglycemic episodes. Will start on Levemir 30 units with sliding scale coverage before meals and Endocrinology follow up on discharge. Continue Gabapentin 3. Elevated Troponin, etiology unclear. No chest pain. ECG - NSR. No acute ST/T changes. TnI max 0.12 Will continue Aspirin and consult Cardiology for evaluation for further work-up. 4. Depression Continue Escitalopram and Seroquel. 5. Seizure Disorder - continue Topamax 6. HTN/HLD - does not appear to be on home meds for these. Further confirmation with PCP required. DVT Px - Heparin SQ
--- NOTE | 2018-07-29 14:37 | CON.GI ---
Consult Consult Specialty:: GI Referred by:: Medicine Reason for Consultation:: abdominal pain - History of Present Illness Chief Complaint: elevated FSG History of Present Illness: 53F with h/o DM on insulin, chronic pancreatitis, HTN, HL, presenting for evaluation of hyperglycemia. Patient reports she had a GI appt at [facility] on Sunday, had labs done in preparation for EGD and colonoscopy this coming Sunday. She was called by the lab and told to go to the nearest ED for FSG 650. Patient reports that she has had chronic abdominal pain for years. Has been told she has chronic pancreatitis. The pain she is currently experiencing is no different. She has nausea and vomits daily. Does not think she has had a gastric emptying study. She also reports 3 diarrheal bm daily. She is already on Creon, about 87624 units with meals. She reports significant weight loss since moving from [place] a few months ago. 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 pylori (? if she means MALT). - History Source History Provided By: Patient Limitations to Obtaining History: Poor Historian - Past Medical History Cardio/Vascular: Yes: HTN Gastrointestinal: Yes: Pancreatitis ...: No Endocrine: Yes: Diabetes Mellitus - Alcohol/Substance Use Hx Alcohol Use: No - Smoking History Smoking history: Never smoked Have you smoked in the past 12 months: No Home Medications - Allergies Allergies/Adverse Reactions: Allergies Allergy/AdvReac Type Severity Reaction Status Date / Time Penicillins Allergy Severe Verified 07/28/18 04:20 - Home Medications Home Medications: Ambulatory Orders Aspirin [ASA -] 81 mg PO DAILY 07/28/18 Shyla Kelly 6,000 Units Capsule 12,000 PO TID 07/28/18 Escitalopram Oxalate [Lexapro -] 20 mg PO DAILY 07/28/18 Gabapentin 800 mg PO TID 07/28/18 Insulin Lispro [Humalog] 12 unit SQ TID 07/28/18 Ondansetron HCl [Zofran] 4 mg PO Q6H PRN 07/28/18 Oxycodone HCl [Oxycodone HCl ER] 30 mg PO Q12H 07/28/18 Quetiapine Fumarate [Seroquel] 300 mg PO HS 07/28/18 Topiramate [Topamax] 100 mg PO DAILY 07/28/18 Insulin Detemir [Levemir Flextouch] 30 unit SQ DAILY #3 insuln.pen 07/29/18 Insulin Sliding Scale [Novolog Vial Sliding Scale -] See Protocol SQ ACHS #3 pen 07/29/18 Review of Systems - Review of Systems Constitutional: reports: Unintentional Wgt. Loss Neck: reports: No Symptoms Cardiovascular: reports: No Symptoms Respiratory: reports: No Symptoms Gastrointestinal: reports: Abdominal Pain, Diarrhea, Nausea, Vomiting Neurological: reports: No Symptoms Endocrine: reports: Unexplained Weight Loss Physical Exam-GI Vital Signs: Vital Signs Temperature 98.2 F 07/29/18 06:00 Pulse Rate 72 07/29/18 08:52 Respiratory Rate 18 07/29/18 08:52 Blood Pressure 118/78 07/29/18 08:52 O2 Sat by Pulse Oximetry (%) 98 07/29/18 05:00 Constitutional: Yes: Well Nourished, No Distress Eyes: Yes: Conjunctiva Clear Cardiovascular: Yes: Regular Rate and Rhythm Respiratory: Yes: CTA Bilaterally ...Palpate: Yes: Soft, Tenderness (RUQ and RLQ) ...Rectal Exam: Yes: Deferred Edema: No Labs: CBC, BMP 07/29/18 12:35 07/29/18 05:30 Imaging - Results Ultrasound: Report Reviewed Assessment/Plan RUQ/RLQ pain - unusual location but pt reports this is her chronic pancreatitis pain. Nothing acute seen on US. Having further w/u with EGD and colonoscopy on Sunday at [facility] and is already on pancreatic enzyme replacement. It seems that she is being worked up by her outside GI doctors. Could consider gastric emptying study but will not change acute management. Would suggest control of hyperglycemia, small frequent meals, and follow up with her outpatient city marshal.
--- NOTE | 2018-07-29 14:41 | CON.CARD ---
Consult Consult Specialty:: cardiology Referred by:: Beulah Reason for Consultation:: Abnormal cardiac markers - History of Present Illness Chief Complaint: Abdominal pain History of Present Illness: The patient is a 53-year-old female, we've a history of diabetes, hypertension, hyperlipidemia, seizure disorder, diabetic neuropathy, questionable prior myocardial infarction (as per patient), chronic pancreatitis, depression, obstructive sleep apnea on CPAP, asthma, now admitted with abdominal discomfort nausea, and near syncope. Found to have elevated troponins. Denies chest pains and shortness of breath. No palpitations. The patient is currently comfortable and offers no specific complaints. - History Source History Provided By: Patient, Medical Record Limitations to Obtaining History: No Limitations - Past Medical History Cardio/Vascular: Yes: HTN Pulmonary: Yes: Asthma Gastrointestinal: Yes: Pancreatitis ...: No - Alcohol/Substance Use Hx Alcohol Use: No - Smoking History Smoking history: Never smoked Have you smoked in the past 12 months: No Home Medications - Allergies Allergies/Adverse Reactions: Allergies Allergy/AdvReac Type Severity Reaction Status Date / Time Penicillins Allergy Severe Verified 07/28/18 04:20 - Home Medications Home Medications: Ambulatory Orders Aspirin [ASA -] 81 mg PO DAILY 07/28/[address] 6,000 Units Capsule 12,000 PO TID 07/28/18 Escitalopram Oxalate [Lexapro -] 20 mg PO DAILY 07/28/18 Gabapentin 800 mg PO TID 07/28/18 Insulin Lispro [Humalog] 12 unit SQ TID 07/28/18 Ondansetron HCl [Zofran] 4 mg PO Q6H PRN 07/28/18 Oxycodone HCl [Oxycodone HCl ER] 30 mg PO Q12H 07/28/18 Quetiapine Fumarate [Seroquel] 300 mg PO HS 07/28/18 Topiramate [Topamax] 100 mg PO DAILY 07/28/18 Insulin Detemir [Levemir Flextouch] 30 unit SQ DAILY #3 insuln.pen 07/29/18 Insulin Sliding Scale [Novolog Vial Sliding Scale -] See Protocol SQ ACHS #3 pen 07/29/18 Review of Systems - Review of Systems Constitutional: reports: No Symptoms Eyes: reports: No Symptoms HENT: reports: No Symptoms Neck: reports: No Symptoms Cardiovascular: reports: No Symptoms Respiratory: reports: No Symptoms Gastrointestinal: reports: Abdominal Pain, Nausea Genitourinary: reports: No Symptoms Breasts: reports: No Symptoms Reported Musculoskeletal: reports: No Symptoms Integumentary: reports: No Symptoms Neurological: reports: No Symptoms Endocrine: reports: No Symptoms Hematology/Lymphatic: reports: No Symptoms Psychiatric: reports: No Symptoms Vital Signs: Vital Signs Temperature 98.2 F 07/29/18 06:00 Pulse Rate 72 07/29/18 08:52 Respiratory Rate 18 07/29/18 08:52 Blood Pressure 118/78 07/29/18 08:52 O2 Sat by Pulse Oximetry (%) 98 07/29/18 05:00 Constitutional: Yes: Well Nourished, No Distress, Calm Eyes: Yes: WNL, Conjunctiva Clear, EOM Intact HENT: Yes: WNL, Atraumatic, Normocephalic Neck: Yes: WNL, Supple, Trachea Midline Respiratory: Yes: WNL, Regular, CTA Bilaterally Gastrointestinal: Yes: Normal Bowel Sounds, Soft, Tenderness Renal/: Yes: WNL Cardiovascular: Yes: WNL, Regular Rate and Rhythm JVD: No Carotid Bruit: No PMI: Non-Displaced Heart Sounds: Yes: S1, S2 Murmur: Yes: Systolic Murmur, Grade 2 Musculoskeletal: Yes: WNL Extremities: Yes: WNL Edema: No Peripheral Pulses: 2+ Left Carotid, 2+ Right Carotid, 2+ Left Femoral, 2+ Right Femoral, 2+ Left Popliteal, 2+ Right Popliteal, 2+ Left Doralis Pedis, 2+ Right Dorsalis Pedis Integumentary: Yes: WNL Neurological: Yes: WNL, Alert, Oriented ...Motor Strength: WNL Psychiatric: Yes: WNL - Other Data Labs, Other Data: CBC, BMP 07/29/18 12:35 07/29/18 05:30 Assessment/Plan The patient is a 53-year-old female, we've a history of diabetes, hypertension, hyperlipidemia, seizure disorder, diabetic neuropathy, questionable prior myocardial infarction (as per patient), chronic pancreatitis, depression, obstructive sleep apnea on CPAP, asthma, now admitted with abdominal discomfort nausea, and near syncope. Found to have elevated troponins. Denies chest pains and shortness of breath. No palpitations. The patient is currently comfortable and offers no specific complaints. The patient is in sinus rhythm. The ECG shows no acute changes. Please continue current regimen. Please arrange for an echocardiogram. If the ejection fraction is normal, and there are no segmental wall motion abnormalities, would arrange for a pharmacological nuclear stress test. No need for further cardiac workup at this point.
[2018-07-29 14:48] VITALS: BP 149/73; PULSE 98; TEMP 98.6
--- NOTE | 2018-07-29 16:19 | DS ---
Physical Exam: SUBJECTIVE: Patient seen and examined at bedside. Patient denies new acute complaints. She endorses right upper and lower quadrant "pancreas" abdominal pain that is at at her baseline OBJECTIVE: Vital Signs Period Temp Pulse Resp BP Sys/Kang Pulse Ox Last 24 Hr 98.2 F-98.6 F 65-98 16-20 107-149/66-78 97-98 PHYSICAL EXAM GENERAL: Patient is awake, alert, oriented, in no acute distress. HEAD: Normocephalic, atraumatic EYES: Pupils equal, round and reactive to light, extraocular movements intact, sclera anicteric, conjunctiva clear. EARS, NOSE, THROAT: Oropharynx clear without exudates. Dry mucous membranes. NECK: Supple without lymphadenopathy, or JVD LUNGS: Breath sounds equal, clear to auscultation bilaterally. No wheezes, and no crackles. No accessory muscle use. HEART: Regular rate and rhythm, normal S1 and S2 without murmur, rub or gallop. ABDOMEN: Obese. Soft, mildly tender to deep palpation at right upper and lower abdominal quadrants. No guarding, no rebound tenderness elicited. Normoactive bowel sounds X4 quadrants. No hepatomegaly palpated or percussed. MUSCULOSKELETAL: Normal range of motion at all joints. No bony deformities or tenderness. EXTREMITIES: 2+ radial pulses bilaterally, 2+ dorsalis pedis pulses bilaterally. No calf tenderness. Trace peripheral edema bilaterally. NEUROLOGICAL: Cranial nerves II-XII intact. Normal speech. No gross focal deficits. PSYCHIATRIC: Cooperative upon my encounter. SKIN: Warm, dry. LABS Laboratory Results - last 24 hr 07/27/18 07/28/18 07/28/18 22:14 16:27 21:12 WBC RBC Hgb Hct MCV MCH MCHC RDW Plt Count MPV Sodium Potassium Chloride Carbon Dioxide Anion Gap BUN Creatinine Creat Clearance w eGFR POC Glucometer > 400 313 338 Random Glucose Calcium 07/29/18 07/29/18 07/29/18 05:30 10:51 12:35 WBC 9.6 RBC 3.78 Hgb 12.4 Hct 35.9 MCV 94.8 MCH 32.8 MCHC 34.6 RDW 14.4 Plt Count 231 D MPV 9.9 D Sodium 140 Potassium 4.6 Chloride 107 Carbon Dioxide 26 Anion Gap 7 L BUN 10 Creatinine 0.7 Creat Clearance w eGFR > 60 POC Glucometer 295 Random Glucose 430 H* Calcium 8.5 HOSPITAL COURSE: Date of Admission:07/28/18 Date of Discharge: 07/29/18 Patient is a 53 year old female with history of chronic pancreatitis, insulin dependent diabetes mellitus, neuropathy, hypertension, hyperlipidemia, obstructive sleep apnea on CPAP, seizure disorder, depression, presents after being told by her physician that her blood sugar was elevated. Blood glucose 538 upon admission. No anion gap. She received Insulin, and KCl in ED. Her insulin regimen was changed to 30units Levemir, in addition to insulin sliding scale. Abdominal pain was evaluated by licensed dispensing optician. Abdominal ultrasound showed liver enlarged to 19.6cm. Pancreas grossly unremarkable. CT abdomen pelvis showed hepatomegaly of 20cm, with diffuse fatty infiltration. Pancreas was unremarkable. Troponin 0.12 upon admission trended down. She was evaluated by cardiology who discussed outpatient follow up. Escitalopram and Seroquel were continued for depression. Discharged home with Insulin Levemir 30units daily, and Novolog sliding scale. Prior Insulin Humalin discontinued. Discharged with follow up with primary care physician (Brant Leahy [facility] referral provided), licensed dispensing optician, endoscopic technician, manager outpatient, adjunct trainer (for sleep study to evaluate for new CPAP machine). Discharged home with home health aide. Minutes to complete discharge: 35 Discharge Summary Reason For Visit: HYPERGLYCEMIA WITHOUT KETOSIS Current Active Problems Abdominal pain (Acute) Chronic pancreatitis (Acute) Diabetes mellitus (Acute) Hyperglycemia (Acute) Condition: Stable - Instructions Diet, Activity, Other Instructions: You were admitted to the hospital with abdominal pain, and elevated blood sugars. You were treated with Insulin, and started on new long acting Insulin regimen. You had a CT scan of your abdomen, and were evaluated by the gastroenteroligst, and endoscopic technician. You are being discharged home, continuing care with your home health aide. Continue taking your home medications as directed. We have changed your insulin regimen. STOP taking Humalin. Instead, you will take 30units of (long acting) Insulin Levemir every day. Make sure to check your fingerstick blood sugars every day before breakfast, and before meals. A prescription for glucometer machine, test strips, lancets, and alcohol pads has been sent to your pharmacy. You will also use the sliding scale below to determine how much additional ( short acting) insulin Novolog to administer with your fingerstick blood sugar readings. Blood sugar range Insulin Novolog units 100-150 0 units 151-200 2 units 201-250 4 units 251-300 6 units 301-350 8 units 351-400 10 units Greater than 400 12 units, and go to the nearest emergency department immediately. If your blood sugars fall below 80, drink some juice immediately, and go to the nearest emergency department. Follow up with your primary care physician within two - three days of discharge. A referral to [facility] has been provided. Follow up with your licensed dispensing optician for your colonoscopy as scheduled on Sunday. A prescription for GoLytely has been sent to your pharmacy. Follow the instructions provided by your physician. Follow up with endoscopic technician (Dr. Garcia) within one week of discharge. You may need a cardiac echocardiogram, and a stress test. Discuss with your endoscopic technician. Follow up with manager outpatient (Dr. Hamm) within one week of discharge. Bring the recordings of your daily blood sugars to your appointment. Follow up with [employer] (Dr. Flanagan) regarding sleep study for CPAP machine. Return to the nearest Emergency Department if you experience any worsening symptoms, fevers, chills, lightheadedness, shortness of breath, chest pain, palpitations, abdominal pain, nausea, vomiting, diarrhea. Referrals: [facility] [place] [Provider Group] Carson Flanagan MD [Staff Physician] - Lan Garcia MD [Staff Physician] - Karli Hamm MD [Staff Physician] - Disposition: VNS/HOME HEALTH CARE - Home Medications Comprehensive Discharge Medication List: Ambulatory Orders Aspirin [ASA -] 81 mg PO DAILY 07/28/18 Shyla Kelly 6,000 Units Capsule 12,000 units PO TID 07/28/18 Escitalopram Oxalate [Lexapro -] 20 mg PO DAILY 07/28/18 Gabapentin 800 mg PO TID 07/28/18 Ondansetron HCl [Zofran] 4 mg PO Q6H PRN 07/28/18 Oxycodone HCl [Oxycodone HCl ER] 30 mg PO Q12H 07/28/18 Quetiapine Fumarate [Seroquel] 300 mg PO HS 07/28/18 Topiramate [Topamax -] 100 mg PO DAILY 07/28/18 Alcohol Antiseptic Pads [Alcohol Prep Pads] 1 each TP ASDIR #1 box 07/29/18 Insulin Detemir [Levemir Flextouch] 30 unit SQ DAILY #3 insuln.pen 07/29/18 Insulin Sliding Scale [Novolog Vial Sliding Scale -] See Protocol SQ ACHS #3 pen 07/29/18 Lancets 1 each MC ASDIR #1 box 07/29/18 Miscellaneous Medical Supply [Glucometer Device] 1 each .ROUTE ASDIR #1 kit 10/11 Miscellaneous Medical Supply [Glucometer Test Strips #50] 1 each .ROUTE ASDIR # 1 box 07/29/18 [id number]/Sod Sulf,Bicarb,Cl/KCl [Golytely Solution] 4,000 ml PO ASDIR #1 soln.recon 07/29/18 This patient is new to me today: No Emergency Visit: Yes ED Registration Date: 07/28/18 Care time: The patient presented to the Emergency Department on the above date and was hospitalized for further evaluation of their emergent condition. Critical Care patient: No - Discharge Referral Referred to [facility] Med P.C.: No
== END 2018-07-29 18:37 | disposition home health service (06) ==
LOC: JER 20:21 → JERBED 07-28 03:14 → J8W 07-28 05:36 → J4W 07-28 06:22
PROVIDERS: ADMIT Internal Medicine
PROC: 3E033NZ Introduction of Analgesics, Hypnotics, Sedatives into Peripheral Vein, Percutaneous Approach (ICD-10-PCS; principal; 2018-07-28)
PROC: 3E033VG Introduction of Insulin into Peripheral Vein, Percutaneous Approach (ICD-10-PCS; 2018-07-28)
PROC: 3E0337Z Introduction of Electrolytic and Water Balance Substance into Peripheral Vein, Percutaneous Approach (ICD-10-PCS; 2018-07-28)
PROC: 3E013GC Introduction of Other Therapeutic Substance into Subcutaneous Tissue, Percutaneous Approach (ICD-10-PCS; 2018-07-28)
PROC: 3E013VG Introduction of Insulin into Subcutaneous Tissue, Percutaneous Approach (ICD-10-PCS; 2018-07-28)
PROC: 3E0F7GC Introduction of Other Therapeutic Substance into Respiratory Tract, Via Natural or Artificial Opening (ICD-10-PCS; 2018-07-28)
DX: E11.65 Type 2 diabetes mellitus with hyperglycemia (principal); I10 Essential (primary) hypertension; E78.5 Hyperlipidemia, unspecified; G40.909 Epilepsy, unspecified, not intractable, without status epilepticus; E11.42 Type 2 diabetes mellitus with diabetic polyneuropathy; Z79.4 Long term (current) use of insulin; I25.2 Old myocardial infarction; G47.33 Obstructive sleep apnea (adult) (pediatric); Z99.89 Dependence on other enabling machines and devices; J45.909 Unspecified asthma, uncomplicated; K86.1 Other chronic pancreatitis; Z79.82 Long term (current) use of aspirin; F17.210 Nicotine dependence, cigarettes, uncomplicated; E66.3 Overweight; Z68.30 Body mass index [BMI] 30.0-30.9, adult; E88.09 Other disorders of plasma-protein metabolism, not elsewhere classified; R79.89 Other specified abnormal findings of blood chemistry; F32.9 Major depressive disorder, single episode, unspecified
CPT/HCPCS: 36415; 74177-TC; 76700-TC; 80048; 80053; 81003; 82009; 82962; 83690; 83735; 84100; 84484; 85025; 85027; 93005; 93010; 94640; 96361; 96372; 96374; 96375; 99283-25; G0378; J1644; J7030

== ENCOUNTER 2018-08-09 14:51 | Emergency (ER) | payer BC, OTHER ==
--- NOTE | 2018-08-09 14:58 | PDOC ---
Rapid Medical Evaluation Time Seen by Provider: 08/09/18 14:57 Medical Evaluation: Allergies Allergy/AdvReac Type Severity Reaction Status Date / Time Penicillins Allergy Severe Verified 08/09/18 14:57 08/09/18 14:57 I performed a brief in-person evaluation of this patient. Chief Complaint: BIBEMS for abd pain, n/v/d. Hx IDDM, chronic pancreatitis. Patient states usual pancreatitis-related pain. Sugars have been in the 300s at home. Pertinent Physical Exam Findings: Upper abdominal tenderness. I have ordered the following: CBC, CMP, lipase, acetone, VBG, UA, EKG Patient to proceed to the ED for further evaluation. Discharge Disposition - Diagnosis Abdominal pain Qualifiers: Abdominal location: upper abdomen, unspecified Qualified Code(s): R10.10 - Upper abdominal pain, unspecified - Referrals - Patient Instructions - Post Discharge Activity
[2018-08-09 15:00] VITALS: TEMP 99; BMI 31.2
[2018-08-09] MEDS ORDERED: SODIUM CHLORIDE 1,000 ML IV STA (15:47)
[2018-08-09] MEDS ORDERED: ONDANSETRON 4 MG/2 ML VIAL IVPUSH ONE (15:47)
--- NOTE | 2018-08-09 15:47 | PDOC ---
History of Present Illness - General Chief Complaint: Pain, Acute Stated Complaint: ABD PAIN Time Seen by Provider: 08/09/18 14:57 History Source: Patient Exam Limitations: No Limitations - History of Present Illness Initial Comments: 08/09/18 15:46 53 year old female with PMH IDDM, chronic pancreatitis, HTN, HLD, TRAVIS on CPAP, seizure disorder, depression, neuropathy presented to ED or abdominal pain association with nausea, vomiting x3 days. Pt stated her pain today feels similar to prior episodes of pancreatitis. Pt stated her pain is located to her RUQ, constant, radiating to her back, no alleviating factors, aggravated by food. Pt stated she took a nausea medication today at 7 AM that did not work and took Oxycodone 30 mg at 7AM that did not help her pain. Allergies: PCN Past History - Past Medical History Allergies/Adverse Reactions: Allergies Allergy/AdvReac Type Severity Reaction Status Date / Time Penicillins Allergy Severe Verified 08/09/18 14:57 Home Medications: Ambulatory Orders Aspirin [ASA -] 81 mg PO DAILY 07/28/18 Shyla Kelly 6,000 Units Capsule 12,000 units PO TID 07/28/18 Escitalopram Oxalate [Lexapro -] 20 mg PO DAILY 07/28/18 Gabapentin 800 mg PO TID 07/28/18 Ondansetron HCl [Zofran] 4 mg PO Q6H PRN 07/28/18 Oxycodone HCl [Oxycodone HCl ER] 30 mg PO Q12H 07/28/18 Quetiapine Fumarate [Seroquel] 300 mg PO HS 07/28/18 Topiramate [Topamax -] 100 mg PO DAILY 07/28/18 Insulin Detemir [Levemir Flextouch] 30 unit SQ DAILY #3 insuln.pen 07/29/18 Insulin Sliding Scale [Novolog Vial Sliding Scale -] See Protocol SQ ACHS #3 pen 07/29/18 Ondansetron [Zofran Odt -] 4 mg SL TID PRN #9 od.tablet 08/09/18 Oxycodone HCl 5 mg PO Q6H PRN #15 tablet MDD 4 08/09/18 Asthma: Yes CVA: No COPD: Yes Diabetes: Yes GI Disorders: Yes (pancreatitis) HTN: Yes Hypercholesterolemia: Yes Liver Disease: No Seizures: Yes - Suicide/Smoking/Psychosocial Hx Smoking History: Unknown if ever smoked Have you smoked in the past 12 months: No Cigars Per Day: 2 Hx Alcohol Use: No Drug/Substance Use Hx: No Review of Systems - Review of Systems Able to Perform ROS?: Yes Comments:: 08/09/18 15:59 General: denied fever, chills, night sweats, generalized weakness. HEENT: denied sore throat, rhinorrhea, ear pain. Heart: denied chest pain, palpitations, syncope, lower extremity swelling, diaphoresis. Respiratory: denied shortness of breath, cough, sputum production, hemoptysis. Abdomen: admitted to abdominal pain, nausea, vomiting. denied diarrhea, constipation, blood in stool. : denied dysuria, increased urinary frequency, hematuria, urinary incontinence , flank pain. Back: admitted to radiating back pain. Musculoskeletal: denied joint pain, muscle pain, joint swelling. Neurological: denied headache, dizziness, numbness, tingling, weakness. Skin: denied rash, laceration, abrasion. *Physical Exam - Vital Signs Last Vital Signs Temp Pulse Resp BP Pulse Ox 99 F 92 H 18 121/82 99 08/09/18 14:59 08/09/18 14:59 08/09/18 14:59 08/09/18 14:59 08/09/18 14:59 - Physical Exam Comments: 08/09/18 16:00 Constitutional: Well-nourished, Well-developed, appearing stated age. obese. HEENT: head is normocephalic, atraumatic. EOMI. PERRLA. Neck: supple. Full ROM. Heart: regular rhythm. no murmurs, rubs or gallops. Lungs: clear to auscultation bilaterally. no crackles, rhonchi or wheezing. no stridor. Abdomen: soft, protuberant, tenderness to palpation of RUQ, murphys positive. no guarding. no rebound. no masses. Extremities: Peripheral pulses intact. No lower extremity edema. Neurological: CN 2-12 grossly intact. Moves all four extremities. Psych: awake, alert, oriented x3. Follows commands. Answers questions appropriately. Moderate Sedation - Procedure Monitoring Vital Signs: Procedure Monitoring Vital Signs Temperature 99 F 08/09/18 14:59 Pulse Rate 92 H 08/09/18 14:59 Respiratory Rate 18 08/09/18 14:59 Blood Pressure 121/82 08/09/18 14:59 O2 Sat by Pulse Oximetry (%) 99 08/09/18 14:59 ED Treatment Course - LABORATORY CBC & Chemistry Diagram: 08/09/18 15:12 08/09/18 15:12 Medical Decision Making - Medical Decision Making 08/09/18 16:01 53 year old female with above PMH presented to ED with abdominal pain associated with nausea/vomiting x3 days similar to prior episodes of pancreatitis. Initial Vital Signs Temp Pulse Resp BP Pulse Ox 99 F 92 H 18 121/82 99 08/09/18 14:59 08/09/18 14:59 08/09/18 14:59 08/09/18 14:59 08/09/18 14:59 Afebrile. No tachycardia. No tachypnea. No hypotension. No hypoxia on room air. o Labs ordered: CBC, CMP, UA, lipase, troponin, acetone c Imaging ordered: RUQ ultrasound g Medications ordered: 1L normal saline bolus, zofran 4 mg IV, morphine 4 mg IV Pt refused EKG. 08/09/18 17:10 CBC WBC y 10.2 K/mm3 (4.0-10.0) H 08/09/18 15:12 RBC 3.97 M/mm3 (3.60-5.2) 08/09/18 15:12 Hgb 12.8 GM/dL (10.7-15.3) 08/09/18 15:12 Hct 37.8 % (32.4-45.2) 08/09/18 15:12 MCV 95.2 fl (80-96) 08/09/18 15:12 MCH 32.3 pg (25.7-33.7) 08/09/18 15:12 MCHC 33.9 g/dl (32.0-36.0) 08/09/18 15:12 RDW 14.4 % (11.6-15.6) 08/09/18 15:12 Plt Count 308 K/MM3 (134-434) D 08/09/18 15:12 MPV 8.9 fl (7.5-11.1) D 08/09/18 15:12 Absolute Neuts (auto) 5.2 K/mm3 (1.5-8.0) 08/09/18 15:12 Neutrophils % 51.4 % (42.8-82.8) 08/09/18 15:12 Lymphocytes % 42.3 % (8-40) H 08/09/18 15:12 Monocytes % 4.1 % (3.8-10.2) 08/09/18 15:12 Eosinophils % 1.3 % (0-4.5) 08/09/18 15:12 Basophils % 0.9 % (0-2.0) 08/09/18 15:12 Nucleated RBC % 0 % (0-0) 08/09/18 15:12 Mild leukocytosis. No anemia. CMP Sodium 140 mmol/L (136-145) 08/09/18 15:12 Potassium 4.1 mmol/L (3.5-5.1) 08/09/18 15:12 Chloride 104 mmol/L (98-107) 08/09/18 15:12 Carbon Dioxide 28 mmol/L (21-32) 08/09/18 15:12 Anion Gap 8 MMOL/L (8-16) 08/09/18 15:12 BUN 9 mg/dL (7-18) 08/09/18 15:12 Creatinine 0.8 mg/dL (0.55-1.3) 08/09/18 15:12 Creat Clearance w eGFR > 60 (>60) 08/09/18 15:12 Random Glucose y 429 mg/dL (74-106) H* 08/09/18 15:12 Calcium 8.8 mg/dL (8.5-10.1) 08/09/18 15:12 Total Bilirubin 0.3 mg/dL (0.2-1) 08/09/18 15:12 AST 9 U/L (15-37) L 08/09/18 15:12 ALT 10 U/L (13-61) L 08/09/18 15:12 Alkaline Phosphatase 70 U/L (45-117) 08/09/18 15:12 Troponin I 0.02 ng/ml (0.00-0.05) 08/09/18 15:12 Total Protein 6.1 g/dl (6.4-8.2) L 08/09/18 15:12 Albumin 2.9 g/dl (3.4-5.0) L 08/09/18 15:12 Lipase 103 U/L (73-393) 08/09/18 15:12 No electrolyte abnormalities. No NELLY. o Hyperglycemia. g - Pt is receiving IV fluids No transaminitis Normal troponin Normal lipase o Acetone negative - Uncontrolled diabetes, but not in DKA, will not give insulin at this time. EKG performed at 1718: rate 90, regular rhythm, normal axis, normal intervals, nonspecific ST changes. 08/09/18 17:56 c No evidence of acute cholecystitis or acute cholelithiasis on RUQ US report. Pt reported mild improvement of pain, but still uncomfortable. Pain likely secondary to chronic pancreatitis vs gastroparesis. - No elevation of lipase, consistent with chronic pancreatitis o Fingerstick 322. Pt reported improvement of pain, was sleeping comfortably. Pt informed of results and need to follow up with PCP and GI. Pt stated she understood, but ran out of her pain medication and will not have any more until Sunday. Pt requesting Zofran. Online database used to check prescription history. Pt is out of her medication. Will prescribe Oxycodone 5 mg for her to take until she gets her prescription Sunday. Pt discharged. *DC/Admit/Observation/Transfer Diagnosis at time of Disposition: Chronic relapsing pancreatitis, Nausea & vomiting Abdominal pain Qualifiers: Abdominal location: upper abdomen, unspecified Qualified Code(s): R10.10 - Upper abdominal pain, unspecified - Discharge Dispostion Disposition: HOME Condition at time of disposition: Improved Decision to Admit order: No - Prescriptions Prescriptions: Ondansetron [Zofran Odt -] 4 mg SL TID PRN #9 od.tablet PRN Reason: Nausea Oxycodone HCl 5 mg PO Q6H PRN #15 tablet MDD 4 PRN Reason: Pain - Referrals Referrals: Fadi Hawk MD [Staff Physician] - - Patient Instructions Additional Instructions: Your lab work was normal, other than a high glucose. Follow up with your primary care doctor on this, and with an Piano Machine Operator. I have provided you with a referral. Follow up with your database software technician in 2-3 days, your care is not complete until you follow up. Return to the Emergency Department for increasing pain, vomiting after use of Zofran, vomiting blood, blood in stool, or any other new, worsening or concerning symptoms. I have sent a prescription for Zofran and Oxycodone to your pharmacy. Take as advised on labels. - Post Discharge Activity
[2018-08-09] MEDS ORDERED: ONDANSETRON 4 MG/2 ML VIAL ONE (16:01)
[2018-08-09 16:06] LABS: BASO % 0.9 % (0-2.0); EOS % 1.3 % (0-4.5); HEMATOCRIT 37.8 % (32.4-45.2); HEMOGLOBIN 12.8 GM/dL (10.7-15.3); LYMPH % 42.3 % (8-40); MCH 32.3 pg (25.7-33.7); MCHC 33.9 g/dl (32.0-36.0); MEAN CELL VOLUME 95.2 fl (80-96); MEAN PLT VOLUME 8.9 fl (7.5-11.1); MONO % 4.1 % (3.8-10.2); NEUT % 51.4 % (42.8-82.8); PLATELET COUNT 308 K/MM3 (134-434); RBC 3.97 M/mm3 (3.60-5.2); RDW 14.4 % (11.6-15.6); WHITE BLOOD COUNT 10.2 K/mm3 (4.0-10.0)
[2018-08-09] MEDS ORDERED: morphine CARPU-JECT 4 MG/1 ML DISP.SYRIN IVPUSH ONE (16:12)
[2018-08-09] MEDS ORDERED: morphine SULFATE 4 MG/ML VIAL ONE (16:15)
[2018-08-09] MEDS ORDERED: METOCLOPRAMIDE HCL INJECTION 10 MG/2 ML VIAL IVPUSH ONE (16:23)
[2018-08-09 16:26] LABS: URINE APPEARANCE CLOUDY; URINE BILIRUBIN NEGATIVE (<2.0 mg/dL); URINE COLOR LTYELLOW; URINE GLUCOSE (UA) 3+ (NEGATIVE); URINE KETONE NEGATIVE (NEGATIVE); URINE LEUK ESTERASE 1+ (NEGATIVE); URINE NITRITE NEGATIVE (NEGATIVE); URINE PROTEIN NEGATIVE (NEGATIVE); URINE UROBILINOGEN NEGATIVE mg/dL (0.2-1.0)
[2018-08-09 16:31] LABS: EPI CELLS MANY /HPF (FEW); URINE BACTERIA RARE /hpf (NONE SEEN); URINE MUCUS RARE
--- NOTE | 2018-08-09 16:31 | PDOC ---
Attending Attestation - Medical Decision Making EXAM#: TYPE/EXAM: RESULT: [id number] US/ABDOMEN US -LIMITED Right upper quadrant abdomen ultrasound Clinical information: right upper quadrant pain, positive Georges's, history of pancreatitis Impression: No sonographic evidence of cholelithiasis or acute cholecystitis. There has been no definite interval change in comparison to a prior ultrasound study of 07/27/2018. Reported By: Carson Spicer MD 08/09/18 17:55 Documentation prepared by TUTU Flores, acting as medical services coordinator for Garfield Stack MD. 08/09/18 18:00 <Laureen Hernandez - Last Filed: 08/09/18 17:59> - Resident Resident Name: Rossy Black - ED Attending Attestation I have performed the following: I have examined & evaluated the patient, The case was reviewed & discussed with the resident, I agree w/resident's findings & plan, Exceptions are as noted - HPI HPI: 08/09/18 16:23 53 year old female c/ HTN, DM (on insulin), HLD, LENIN, neuropathy, seizure, chronic pancreatitis presents with abdominal pain x 3 days. The patient was recently admitted for hyperglycemia and d/c'd on levemir BID, which pt reports adherence. However, pt reports persistent hyperglycemia. Noted in the last 3 days of having epigastric and RUQ pain. States pain is constant and feels like her previous pancreatitis. Has nausea and vomiting, but denies fevers and diarrhea. Pt is already on 30 oxycontin BID PO and 5 mg PO oxycodone immediate release PRN. States is not controlling her pain. Has a history of SBO. - Physicial Exam PE: 08/09/18 16:25 General: NAD, AAOx3 EOMI abd, soft, nondistended. TTP RUQ, epigastric. No rebound, no guarding. No lower extremity edema - Medical Decision Making 08/09/18 16:26 Vital Signs Temp Pulse Resp BP Pulse Ox 99 F 92 H 18 121/82 99 08/09/18 14:59 08/09/18 14:59 08/09/18 14:59 08/09/18 14:59 08/09/18 14:59 Poorly controlled diabetic with upper abdominal pain. Differential includes gastritis, pancreatitis, gastroparesis, gastroenteritis I agree with the resident's plan. Labs, abdominal ultrasound, UA. Pain control and reassess. 08/09/18 17:32 CBC, BMP 08/09/18 15:12 08/09/18 15:12 CMP Sodium 140 mmol/L (136-145) 08/09/18 15:12 Potassium 4.1 mmol/L (3.5-5.1) 08/09/18 15:12 Chloride 104 mmol/L (98-107) 08/09/18 15:12 Carbon Dioxide 28 mmol/L (21-32) 08/09/18 15:12 Anion Gap 8 MMOL/L (8-16) 08/09/18 15:12 BUN 9 mg/dL (7-18) 08/09/18 15:12 Creatinine 0.8 mg/dL (0.55-1.3) 08/09/18 15:12 Creat Clearance w eGFR > 60 (>60) 08/09/18 15:12 Random Glucose 429 mg/dL (74-106) H* 08/09/18 15:12 Calcium 8.8 mg/dL (8.5-10.1) 08/09/18 15:12 Total Bilirubin 0.3 mg/dL (0.2-1) 08/09/18 15:12 AST 9 U/L (15-37) L 08/09/18 15:12 ALT 10 U/L (13-61) L 08/09/18 15:12 Alkaline Phosphatase 70 U/L (45-117) 08/09/18 15:12 Troponin I 0.02 ng/ml (0.00-0.05) 08/09/18 15:12 Total Protein 6.1 g/dl (6.4-8.2) L 08/09/18 15:12 Albumin 2.9 g/dl (3.4-5.0) L 08/09/18 15:12 Lipase 103 U/L (73-393) 08/09/18 15:12 Acetone neative. Hyperglycemia still persistent but not DKA. 08/09/18 18:11 Ultrasound reviewed. No acute findings. If patient still has persistent uncontrollable pain, will consider admission for gastroparesis and uncontrolled hyperglycemia. 08/09/18 18:22 Pt feels better. She would like to go home. Pt has been given IVF. Will give her referral for endrinology. Pt is requesting an oxycodone prescription. Others' Prescriptions Patient Name: Donna Richard Date: 1965 Address: [address] [place] [address] [place] [address] Sex: Female Rx Written Rx Dispensed Drug Quantity Days Supply Prescriber Name 07/22/2018 07/26/2018 alprazolam 2 mg tablet 30 30 Polyakova, Salma 07/22/2018 07/23/2018 oxycodone hcl 5 mg tablet 60 15 Polyakova, Salma 07/03/2018 07/12/2018 oxycodone hcl 30 mg tablet 60 30 Milton Goldsmith () 06/24/2018 06/26/2018 alprazolam 2 mg tablet 30 30 Polyakova, Salma Patient Name: Donna Richard Date: 1965 Address: [address] [place] [address] [place] [address] Sex: Female Rx Written Rx Dispensed Drug Quantity Days Supply Prescriber Name 06/17/2018 06/17/2018 oxycodone hcl 5 mg tablet 60 15 Polyakova, Salma Patient Name: Donna Richard Date: 1965 Address: [address] [place] [id number] Sex: Female Rx Written Rx Dispensed Drug Quantity Days Supply Prescriber Name 05/31/2018 06/11/2018 oxycodone hcl 30 mg tablet 60 30 Polyakova, Salma 05/07/2018 05/20/2018 alprazolam 2 mg tablet 30 30 Polyakova, [place]ma 05/07/2018 05/12/2018 oxycodone hcl 30 mg tablet 60 30 Polyakova, [place]ma 05/07/2018 05/08/2018 oxycodone hcl 5 mg tablet 60 15 Polyakova, Salma 05/06/2018 05/06/2018 oxycodone hcl 30 mg tablet 15 7 Polyakova, Salma 05/06/2018 05/06/2018 alprazolam 2 mg tablet 15 15 Polyakova, [place]ma 04/08/2018 04/08/2018 alprazolam 2 mg tablet 30 30 Polyakova, [place]ma 04/03/2018 04/04/2018 oxycodone hcl 30 mg tablet 60 30 Polyakova, [place]ma 03/04/2018 03/06/2018 alprazolam 2 mg tablet 30 30 Polyakova, [place]ma 03/04/2018 03/06/2018 oxycodone hcl 30 mg tablet 60 30 Polyakova, [place]ma 02/04/2018 02/04/2018 alprazolam 2 mg tablet 30 30 Polyakova, [place]ma 02/04/2018 02/04/2018 oxycodone hcl 30 mg tablet 60 30 Polyakova, [place]ma 01/04/2018 01/07/2018 alprazolam 2 mg tablet 30 30 Polyakova, [place]ma 01/04/2018 01/04/2018 oxycodone hcl 30 mg tablet 60 30 Polyakova, [place]ma 11/26/2017 12/04/2017 oxycodone hcl 30 mg tablet 60 30 Polyakova, [place]ma 11/26/2017 11/29/2017 alprazolam 2 mg tablet 30 30 Polyakova, [place]ma 10/31/2017 11/05/2017 oxycodone hcl 30 mg tablet 60 30 Polyakova, [place]ma 10/05/2017 10/06/2017 oxycodone hcl 30 mg tablet 60 30 Polyakova, Salma 09/06/2017 09/06/2017 alprazolam 2 mg tablet 30 30 Polyakova, Salma 08/31/2017 09/04/2017 oxycodone hcl 30 mg tablet 60 30 Polyakova, [place]ma [employer] registry checked. Given that the patient has no recent prescriptions for oxycodone, will write her a 3 day prescription of oxycodone until she has an appointment with Dr. Leon. <Garfield Stack - Last Filed: 08/09/18 18:23> Heart Score/ECG Review #1 ECG reviewed & interpreted by me at: 17:20 08/09/18 17:35 NSR 90, no std/nina, normal axis, normal intervals, Q wave V2-, QTC 450 msec <Garfield Stack - Last Filed: 08/09/18 18:23>
[2018-08-09] MEDS ORDERED: METOCLOPRAMIDE HCL INJECTION 10 MG/2 ML VIAL ONE (16:44)
[2018-08-09 16:55] LABS: ALBUMIN 2.9 g/dl (3.4-5.0); ALK PHOS 70 U/L (45-117); ANION GAP 8 MMOL/L (8-16); BILIRUBIN,TOTAL 0.3 mg/dL (0.2-1); BLOOD UREA NITROGEN 9 mg/dL (7-18); CALCIUM 8.8 mg/dL (8.5-10.1); CHLORIDE 104 mmol/L (98-107); CO2 28 mmol/L (21-32); CREATININE 0.8 mg/dL (0.55-1.3); LIPASE 103 U/L (73-393); POTASSIUM 4.1 mmol/L (3.5-5.1); SGOT/AST 9 U/L (15-37); SGPT/ALT 10 U/L (13-61); SODIUM 140 mmol/L (136-145); TOT PROT 6.1 g/dl (6.4-8.2)
[2018-08-09 17:03] LABS: GLUCOSE,RANDOM 429 mg/dL (74-106)
[2018-08-09 18:34] VITALS: BP 140/91; PULSE 91
--- NOTE | 2018-08-10 13:06 | EKG ---
Test Reason : Blood Pressure : / mmHG Vent. Rate : 090 BPM Atrial Rate : 090 BPM P-R Int : 152 ms QRS Dur : 082 ms QT Int : 368 ms P-R-T Axes : 069 050 060 degrees QTc Int : 450 ms NORMAL SINUS RHYTHM POSSIBLE LEFT ATRIAL ENLARGEMENT CANNOT RULE OUT SEPTAL INFARCT , AGE UNDETERMINED ABNORMAL ECG Confirmed by SARAH SUMNER MD ([id number]) on 08/10/2018 1:06:25 PM Referred By: Confirmed By:SARAH SUMNER MD
== END 2018-08-09 18:55 | disposition home or self-care (01) ==
LOC: JER 14:51
PROC: 3E033NZ Introduction of Analgesics, Hypnotics, Sedatives into Peripheral Vein, Percutaneous Approach (ICD-10-PCS; principal; 2018-08-09)
PROC: 3E033GC Introduction of Other Therapeutic Substance into Peripheral Vein, Percutaneous Approach (ICD-10-PCS; 2018-08-09)
PROC: 3E033GC Introduction of Other Therapeutic Substance into Peripheral Vein, Percutaneous Approach (ICD-10-PCS; 2018-08-09)
DX: K86.1 Other chronic pancreatitis (principal); E11.9 Type 2 diabetes mellitus without complications; Z79.4 Long term (current) use of insulin; I10 Essential (primary) hypertension; E78.00 Pure hypercholesterolemia, unspecified; J44.9 Chronic obstructive pulmonary disease, unspecified; J45.909 Unspecified asthma, uncomplicated; G40.909 Epilepsy, unspecified, not intractable, without status epilepticus
CPT/HCPCS: 36415; 76705-TC; 80053; 81003; 81015; 82009; 82962; 83690; 84484; 85025; 93005; 93010; 96374; 96375; 99283-25; J7030

== ENCOUNTER 2018-09-03 19:09 | Inpatient (IN) | payer BC, OTHER ==
[2018-09-03] MEDS ORDERED: SODIUM CHLORIDE 1,000 ML IV STA ×2 (19:34→23:29)
--- NOTE | 2018-09-03 19:34 | PDOC ---
Rapid Medical Evaluation Chief Complaint: Pain, Acute Time Seen by Provider: 09/03/18 19:33 Medical Evaluation: Allergies Allergy/AdvReac Type Severity Reaction Status Date / Time Penicillins Allergy Severe Verified 08/15/18 08:10 09/03/18 19:34 I have performed a brief in-person evaluation of this patient. The patient presents with a chief complaint of: abdominal pain Pertinent physical exam findings: upper abdomen tenderness I have ordered the following: labs, urine, sono The patient will proceed to the ED for further evaluation. Discharge Disposition - Diagnosis Abdominal pain - Referrals - Patient Instructions - Post Discharge Activity
[2018-09-03] MEDS ORDERED: ONDANSETRON 4 MG/2 ML VIAL IVPUSH ONE (19:36)
[2018-09-03] MEDS ORDERED: morphine CARPU-JECT 4 MG/1 ML DISP.SYRIN IVPUSH ONE (19:36)
[2018-09-03 20:53] LABS: BASO % 0.8 % (0-2.0); EOS % 1.8 % (0-4.5); HEMATOCRIT 46.1 % (32.4-45.2); HEMOGLOBIN 15.7 GM/dL (10.7-15.3); LYMPH % 49.2 % (8-40); MCH 32.3 pg (25.7-33.7); MCHC 34.1 g/dl (32.0-36.0); MEAN CELL VOLUME 94.6 fl (80-96); MEAN PLT VOLUME 9.2 fl (7.5-11.1); MONO % 4.3 % (3.8-10.2); NEUT % 43.9 % (42.8-82.8); PLATELET COUNT 346 K/MM3 (134-434); RBC 4.87 M/mm3 (3.60-5.2); RDW 14.6 % (11.6-15.6); WHITE BLOOD COUNT 10.2 K/mm3 (4.0-10.0)
[2018-09-03 21:24] LABS: ALBUMIN 3.4 g/dl (3.4-5.0); ALK PHOS 103 U/L (45-117); ANION GAP 7 MMOL/L (8-16); BILIRUBIN,TOTAL 0.5 mg/dL (0.2-1); BLOOD UREA NITROGEN 7 mg/dL (7-18); CALCIUM 9.3 mg/dL (8.5-10.1); CHLORIDE 98 mmol/L (98-107); CO2 26 mmol/L (21-32); CREATININE 0.9 mg/dL (0.55-1.3); LIPASE 75 U/L (73-393); POTASSIUM 4.7 mmol/L (3.5-5.1); SGOT/AST 6 U/L (15-37); SGPT/ALT 13 U/L (13-61); SODIUM 132 mmol/L (136-145); TOT PROT 7.4 g/dl (6.4-8.2)
[2018-09-03 21:31] LABS: GLUCOSE,RANDOM 519 mg/dL (74-106)
[2018-09-03] MEDS ORDERED: morphine SULFATE 4 MG/ML VIAL ONE (21:36)
[2018-09-03] MEDS ORDERED: ONDANSETRON 4 MG/2 ML VIAL ONE (21:37)
--- NOTE | 2018-09-03 22:06 | PDOC ---
*Physical Exam - Vital Signs Last Vital Signs Temp Pulse Resp BP Pulse Ox 98.3 F 98 H 16 96/46 L 100 09/03/18 19:32 09/03/18 19:32 09/03/18 19:32 09/03/18 19:32 09/03/18 19:32 ED Treatment Course - LABORATORY CBC & Chemistry Diagram: 09/03/18 20:33 09/03/18 20:33 - ADDITIONAL ORDERS Additional order review: Laboratory Results 09/03/18 20:33 Sodium 132 L Potassium 4.7 Chloride 98 Carbon Dioxide 26 Anion Gap 7 L BUN 7 Creatinine 0.9 Creat Clearance w eGFR > 60 Random Glucose 519 H* Calcium 9.3 Total Bilirubin 0.5 AST 6 L ALT 13 Alkaline Phosphatase 103 Total Protein 7.4 Albumin 3.4 Lipase 75 09/03/18 20:33 RBC 4.87 MCV 94.6 MCHC 34.1 RDW 14.6 MPV 9.2 Neutrophils % 43.9 Lymphocytes % 49.2 H Monocytes % 4.3 Eosinophils % 1.8 Basophils % 0.8 Medical Decision Making - Medical Decision Making 09/03/18 22:06 Patient seen by the advanced practice provider under my direct supervision. Ancillary testing reviewed as necessary. I agree with plan as outlined by the advanced practice provider. *DC/Admit/Observation/Transfer Diagnosis at time of Disposition: Abdominal pain - Referrals Referrals: Salma Leon MD [Primary Care Provider] - - Patient Instructions - Post Discharge Activity
--- NOTE | 2018-09-03 23:36 | PDOC ---
History of Present Illness - General Chief Complaint: Pain, Acute Stated Complaint: ABD PAIN Time Seen by Provider: 09/03/18 19:33 History Source: Patient Exam Limitations: No Limitations Past History - Past Medical History Allergies/Adverse Reactions: Allergies Allergy/AdvReac Type Severity Reaction Status Date / Time Penicillins Allergy Severe Verified 09/03/18 19:36 Home Medications: Ambulatory Orders Aspirin [ASA -] 81 mg PO DAILY 07/28/[address] 6,000 Units Capsule 12,000 units PO TID 07/28/18 Escitalopram Oxalate [Lexapro -] 20 mg PO DAILY 07/28/18 Gabapentin 800 mg PO TID 07/28/18 Ondansetron HCl [Zofran] 4 mg PO Q6H PRN 07/28/18 Oxycodone HCl [Oxycodone HCl ER] 30 mg PO Q12H 07/28/18 Quetiapine Fumarate [Seroquel] 300 mg PO HS 07/28/18 Topiramate [Topamax -] 100 mg PO DAILY 07/28/18 Insulin Detemir [Levemir Flextouch] 30 unit SQ DAILY #3 insuln.pen 07/29/18 Insulin Sliding Scale [Novolog Vial Sliding Scale -] See Protocol SQ ACHS #3 pen 07/29/18 Ondansetron [Zofran Odt -] 4 mg SL TID PRN #9 od.tablet 08/09/18 Oxycodone HCl 5 mg PO Q6H PRN #15 tablet MDD 4 08/09/18 Asthma: Yes CVA: No COPD: No Diabetes: Yes GI Disorders: Yes (pancreatitis) HTN: Yes Hypercholesterolemia: Yes Liver Disease: No Seizures: Yes - Suicide/Smoking/Psychosocial Hx Smoking History: Never smoked Have you smoked in the past 12 months: No Cigars Per Day: 2 Information on smoking cessation initiated: No Hx Alcohol Use: No Drug/Substance Use Hx: No *Physical Exam - Vital Signs Last Vital Signs Temp Pulse Resp BP Pulse Ox 98.3 F 98 H 16 96/46 L 100 09/03/18 19:32 09/03/18 19:32 09/03/18 19:32 09/03/18 19:32 09/03/18 19:32 - Physical Exam General Appearance: No: Apparent Distress Neck: positive: Supple Respiratory/Chest: positive: Lungs Clear, Normal Breath Sounds. negative: Respiratory Distress Cardiovascular: positive: Regular Rhythm, Regular Rate, S1, S2. negative: Murmur Gastrointestinal/Abdominal: positive: Normal Bowel Sounds, Tender (mild TTP RUQ) , Soft. negative: Distended, Guarding, Rebound, Mass Musculoskeletal: negative: CVA Tenderness Integumentary: positive: Normal Color Neurologic: positive: Alert, Normal Mood/Affect Moderate Sedation - Procedure Monitoring Vital Signs: Procedure Monitoring Vital Signs Temperature 98.3 F 09/03/18 19:32 Pulse Rate 98 H 09/03/18 19:32 Respiratory Rate 16 09/03/18 19:32 Blood Pressure 96/46 L 09/03/18 19:32 O2 Sat by Pulse Oximetry (%) 100 09/03/18 19:32 ED Treatment Course - LABORATORY CBC & Chemistry Diagram: 09/03/18 20:33 09/03/18 20:33 - ADDITIONAL ORDERS Additional order review: Laboratory Results 09/03/18 20:33 Sodium 132 L Potassium 4.7 Chloride 98 Carbon Dioxide 26 Anion Gap 7 L BUN 7 Creatinine 0.9 Creat Clearance w eGFR > 60 Random Glucose 519 H* Calcium 9.3 Total Bilirubin 0.5 AST 6 L ALT 13 Alkaline Phosphatase 103 Total Protein 7.4 Albumin 3.4 Lipase 75 09/03/18 20:33 RBC 4.87 MCV 94.6 MCHC 34.1 RDW 14.6 MPV 9.2 Neutrophils % 43.9 Lymphocytes % 49.2 H Monocytes % 4.3 Eosinophils % 1.8 Basophils % 0.8 - Medications Given in the ED: ED Medications Discontinued Medications Generic Name Dose Route Start Last Admin Trade Name Justinq PRN Reason Stop Dose Admin Sodium Chloride 1,000 mls @ 1,000 mls/hr 09/03/18 19:34 09/03/18 22:39 Normal Saline - IV 09/03/18 20:33 1,000 mls/hr ASDIR STA Administration Morphine Sulfate 4 mg 09/03/18 19:36 09/03/18 22:39 Morphine Injection - IVPUSH 09/03/18 19:37 4 mg ONCE ONE Administration Ondansetron HCl 4 mg 09/03/18 19:36 09/03/18 22:40 Zofran Injection IVPUSH 09/03/18 19:37 4 mg ONCE ONE Administration Medical Decision Making - Medical Decision Making 53 y/o F with hx of HTN, HLD, DM, LENIN, neuropathy, seizure, chronic pancreatitis , COPD, SBO presents with RUQ pain x 1 week with intermittent NBNB emesis and also started having watery diarrhea today. Patient states this feels like her typical pancreatitis pain and requesting that she gets admitted for the pain. Patient was seen last month for similar complaint and had RUQ sono done with no acute findings. Denies fever, sob, cp, urinary complaints. Labs with notable glucose >500 (was elevated last visit as well); Patient is taking Levemir 44 units BID. Patient states she is compliant with her meds but has not followed up brand strategist since discharge last month re: her DM. States she is looking for a new doctor No evidence of AG noted Will give 2L of IVF, reassess 09/03/18 23:31 FS improved to 352 after 1 L of IVF Second liter of IVF now running Patient stating her pain is not well controlled (though appears to be resting comfortably) Will admit patient for further symptom control 09/04/18 01:18 *DC/Admit/Observation/Transfer Diagnosis at time of Disposition: Chronic pancreatitis Qualifiers: Pancreatitis type: unspecified pancreatitis type Qualified Code(s): K86.1 - Other chronic pancreatitis - Discharge Dispostion Condition at time of disposition: Stable Decision to Admit order: Yes - Referrals Referrals: Salma Leon MD [Primary Care Provider] - - Patient Instructions - Post Discharge Activity
[2018-09-03 23:44] LABS: URINE APPEARANCE SLCLOUDY; URINE BILIRUBIN NEGATIVE (<2.0 mg/dL); URINE COLOR LTYELLOW; URINE GLUCOSE (UA) 3+ (NEGATIVE); URINE KETONE NEGATIVE (NEGATIVE); URINE LEUK ESTERASE NEGATIVE (NEGATIVE); URINE NITRITE NEGATIVE (NEGATIVE); URINE PROTEIN NEGATIVE (NEGATIVE); URINE UROBILINOGEN NEGATIVE mg/dL (0.2-1.0)
[2018-09-04] MEDS ORDERED: morphine CARPU-JECT 4 MG/1 ML DISP.SYRIN IVPUSH ONE (02:25)
[2018-09-04] MEDS ORDERED: morphine SULFATE 4 MG/ML VIAL ONE (02:31)
--- NOTE | 2018-09-04 03:17 | PN ---
Teaching Attending Note Name of Resident: Ren Duff ATTENDING PHYSICIAN STATEMENT I saw and evaluated the patient. I reviewed the resident's note and discussed the case with the resident. I agree with the resident's findings and plan as documented. SUBJECTIVE: Seen and examined; please refer to resident note for further historical information. Briefly, this is a 53 y/o female who has been admitted last month for abdominal pain and elevated troponin who presents again with abdominal pain and elevated troponin. She tells me that the pain is from her pancreas; she had a negative CT her last admission and a negative US today as well (3 ultrasounds without significant change in the past 2 months). She tells me that yesterday she had to fire her aid as she was having seizures at home and the aid wouldn't call EMS as well as that the aid had been using heroin. She relays a story that she accidentally drank rubbing alcohol said aid left in her fridge (about a mouthful, and this was 24 hours ago). She moved from [place] prior to her first encounter here last time. She is already on Creon and was getting a workup for her assumed chronic pancreatitis done at [facility]. She was seen by Dr. Martinez last admission and had a normal lexiscan with a normal EF. She also complains of several days of diarrhea; denies steatorrhea. 10 sys ROS done and negative aside from HPI PMH significant for DM with neuropathy, pancreatitis (chronic), seizures, ?MALT (will discuss later), Hx H Pylori, ? Prior [place], Depression, LENIN on CPAP PSH, Family hx, Social hx reviewed Medications reviewed OBJECTIVE: VS, labs, imaging reviewed NAD, AAO, resting in bed Diffuse abdominal pain to palpation, ND, +BS PTP diffusely ND +BS Lungs CTAB, w/ sym exp RRR s1/2 no mgr CN2-12 wnl, no fnd ASSESSMENT AND PLAN: Patient presents for abdominal pain found to have a mildly elevated troponin; she tells me she accidentally consumed rubbing alcohol yesterday (mouthful, >24 hours since ingestion). 1) Abdominal Pain with Hx of Chronic Pancreatitis and acute diarrhea -Lipase wnl; GI consult from last visit reviewed. She thinks that the isopropyl alcohol likely caused it. Negative ultrasound. -Given the abdominal pain and diarrhea will check lactoferrin and fecal WBC and obtain CT scan to r/o colitis. -Confirming the doses of pain meds with pharmacy; PRN MSO4 for now. -Tells us she had a colonoscopy 2 weeks ago with her primary GI and denies endoscopy. She couldn't remember his name. We will work to contact him in the AM and obtain recent records and any recs; prior GI consult here noted. -Advance diet as tolerated 2) Elevated Troponin -Recent stress test and CV consultation reviewed; will place on telemetry and consult Dr. Martinez. Trend troponin. EKG reviewed -Further management per specialty services; appreciate expert opinion 3) Isopropyl EtOH accidental consumption -No anion gap; checking serum osm, FOBT. Spoke with poison control, no further recs. 4) Seizures at home -States she had seizures at home but her aid didn't call; checking her levels and will reload if needed. Neuro checks and seizure precautions. Can consider neuro to see. No seizure activity witnessed here. She states that her seizure spontaneously aborted at home. 5) Hx H Pylori -Noted; per GI 6) Depression 7) Possible prior [place] 8) LENIN 9) ? MALT? 10) DM with neuropathy -She states she uses SSI at home and is consistently in the 300s; will place on SSI and calculate equivelant dose of long acting. She is not on oral meds; given her abdominal pain issues, etc. I would favor avoiding and sticking to insulin given GI side effect profile with these drugs (for now). Very uncontrolled at presentation for last admission as well. Check A1c. Full Code
--- NOTE | 2018-09-04 03:26 | HP ---
CHIEF COMPLAINT: "pancreatitis" PCP: Dr. Torri Dooley HISTORY OF PRESENT ILLNESS: Pt. is a 54 y.o F presenting for "pancreatitis." Pt. states that her ETYMOLOGY TEACHER purposefully placed Isopropyl alcohol in her ice tray. Yesterday when the Pt. attempted to get ice she noticed that the liquid was not frozen and took a sip. Pt. states she spit out the alcohol immediately and washed her mouth. Pt. states that she has diffuse abdominal pain that is similar to the pain she has for pancreatitis for 1 week however the ingestion of the alcohol was what placed her pain to 10/10. Pt. endorses watery diarrhea for 1 week and states she has 5 bowel movements a day. Pt. states she feels cold but denies objective fever. Pt. complaining of a lump in the abdomen. Pt. stated that she had 2 seizures last week. Pt. denies any irritation in her mouth or burning sensation in her chest. Pt. states that she has had weight loss from 250lbs to 147lbs over the last 6 months. Pt. endorses getting a colonoscopy 2 weeks ago where polyps were found and biopsied, Pt. awaiting results. Pt. states that she was told she had LENIN but has been unable to get CPAP/BiPAP machine. Pt. states that her BG is normally 300s at home and that per her Nurse Practitioner (PCP) 300s for blood glucose is "normal." Pt. was recently seen in last month for a similar complaint of abdominal pain. Full Cardiology(EKG, Echo and MPI Stress test) workup was Negative ER course was notable for: (1)EKG, Trop (2)CBC, Lipase CMP (3)Morphine 4mg x 4 Recent Travel: Moved form [place] 2 years ago PAST MEDICAL HISTORY: HTN, HLD, NIDDM, Migraines, LENIN, Neuropathy, seizures, chronic pancreatitis, COPD PAST SURGICAL HISTORY: Ostomy and reversal 2/2 SBO Social History: Smokin cig/day cut back form 3 PPD for 18 years Alcohol: Denies Drugs: Denies Family History: 18 siblings, 1 sister with Breast CA (ddx. @ 31) Allergies Penicillins Allergy (Severe, Verified 09/03/18 19:36) Anaphylaxis HOME MEDICATIONS: Home Medications Medication Instructions Recorded Aspirin [ASA -] 81 mg PO DAILY 07/28/18 [address] 6,000 Units Capsule 12,000 units PO TID 07/28/18 Escitalopram Oxalate [Lexapro -] 20 mg PO DAILY 07/28/18 Gabapentin 800 mg PO TID 07/28/18 Ondansetron HCl [Zofran] 4 mg PO Q6H PRN 07/28/18 Oxycodone HCl [Oxycodone HCl ER] 30 mg PO Q12H 07/28/18 Quetiapine Fumarate [Seroquel] 300 mg PO HS 07/28/18 Topiramate [Topamax -] 100 mg PO DAILY 07/28/18 Insulin Detemir [Levemir Flextouch] 30 unit SQ DAILY #3 insuln.pen 07/29/18 Insulin Sliding Scale [Novolog See Protocol SQ ACHS #3 pen 07/29/18 Vial Sliding Scale -] Ondansetron [Zofran Odt -] 4 mg SL TID PRN #9 od.tablet 08/09/18 Oxycodone HCl 5 mg PO Q6H PRN #15 tablet MDD 4 08/09/18 REVIEW OF SYSTEMS CONSTITUTIONAL: weight change, chills Absent: fever, diaphoresis, generalized weakness, malaise, loss of appetite, HEENT: Absent: rhinorrhea, nasal congestion, throat pain, throat swelling, difficulty swallowing, mouth swelling, ear pain, eye pain, visual changes CARDIOVASCULAR: Absent: chest pain, syncope, palpitations, irregular heart rate, lightheadedness , peripheral edema RESPIRATORY: Absent: cough, shortness of breath, dyspnea with exertion, orthopnea, wheezing, stridor, hemoptysis GASTROINTESTINAL: abdominal pain, diarrhea Absent: , abdominal distension, nausea, vomiting, constipation, melena, hematochezia GENITOURINARY: Absent: dysuria, frequency, urgency, hesitancy, hematuria, flank pain, genital pain MUSCULOSKELETAL: Absent: myalgia, arthralgia, joint swelling, back pain, neck pain SKIN: Absent: rash, itching, pallor HEMATOLOGIC/IMMUNOLOGIC: Absent: easy bleeding, easy bruising, lymphadenopathy, frequent infections ENDOCRINE: unexplained weight loss, cold intolerance Absent: unexplained weight gain, heat intolerance NEUROLOGIC: Neuropathy Absent: headache, focal weakness or paresthesias, dizziness, unsteady gait, seizure, mental status changes, bladder or bowel incontinence PSYCHIATRIC: Absent: anxiety, depression, suicidal or homicidal ideation, hallucinations. PHYSICAL EXAMINATION Vital Signs - 24 hr 09/03/18 09/04/18 19:32 03:16 Temperature 98.3 F 98.1 F Pulse Rate 98 H Pulse Rate [ 88 Apical] Respiratory 16 18 Rate Blood Pressure 96/46 L Blood Pressure 135/79 [Right Arm] O2 Sat by Pulse 100 99 Oximetry (%) GENERAL: Awake, alert, and fully oriented, in no acute distress. HEAD: Normal with no signs of trauma. EYES: Pupils equal, round and reactive to light, extraocular movements intact, sclera anicteric, conjunctiva clear. No lid lag. EARS, NOSE, THROAT: Ears normal, nares patent, oropharynx clear without exudates. Moist mucous membranes. NECK: Normal range of motion, supple without lymphadenopathy, JVD, or masses. LUNGS: Breath sounds equal, clear to auscultation bilaterally. No wheezes, and no crackles. No accessory muscle use. HEART: Regular rate and rhythm, normal S1 and S2 without murmur, rub or gallop. ABDOMEN: Diffuse TTP, most prominent in the RUQ and epigastrium MUSCULOSKELETAL: No CVA tenderness. UPPER EXTREMITIES: 2+ radial pulses, warm, well-perfused. No cyanosis. No clubbing. No peripheral edema. LOWER EXTREMITIES: 2+ dorsal pedal pulses, warm, well-perfused. No calf tenderness. No peripheral edema. NEUROLOGICAL: Normal speech. Gait not assessed. PSYCHIATRIC: Cooperative. Good eye contact. SKIN: Warm, dry, increased turgor, normal capillary refill. Laboratory Results - last 24 hr 09/03/18 09/03/18 09/03/18 20:33 20:33 20:33 WBC 10.2 H RBC 4.87 Hgb 15.7 H Hct 46.1 H D MCV 94.6 MCH 32.3 MCHC 34.1 RDW 14.6 Plt Count 346 MPV 9.2 Absolute Neuts (auto) 4.5 Neutrophils % 43.9 Lymphocytes % 49.2 H Monocytes % 4.3 Eosinophils % 1.8 Basophils % 0.8 Nucleated RBC % 0 Sodium 132 L Potassium 4.7 Chloride 98 Carbon Dioxide 26 Anion Gap 7 L BUN 7 Creatinine 0.9 Creat Clearance w eGFR > 60 POC Glucometer Random Glucose 519 H* Calcium 9.3 Total Bilirubin 0.5 AST 6 L ALT 13 Alkaline Phosphatase 103 Troponin I 0.20 H Total Protein 7.4 Albumin 3.4 Lipase 75 Urine Color Urine Appearance Urine pH Ur Specific [place] Urine Protein Urine Glucose (UA) Urine Ketones Urine Blood Urine Nitrite Urine Bilirubin Urine Urobilinogen Ur Leukocyte Esterase 09/03/18 09/04/18 22:53 00:52 WBC RBC Hgb Hct MCV MCH MCHC RDW Plt Count MPV Absolute Neuts (auto) Neutrophils % Lymphocytes % Monocytes % Eosinophils % Basophils % Nucleated RBC % Sodium Potassium Chloride Carbon Dioxide Anion Gap BUN Creatinine Creat Clearance w eGFR POC Glucometer 352 Random Glucose Calcium Total Bilirubin AST ALT Alkaline Phosphatase Troponin I Total Protein Albumin Lipase Urine Color Ltyellow Urine Appearance Slcloudy Urine pH 6.0 Ur Specific [place] 1.033 Urine Protein Negative Urine Glucose (UA) 3+ H Urine Ketones Negative Urine Blood Negative Urine Nitrite Negative Urine Bilirubin Negative Urine Urobilinogen Negative Ur Leukocyte Esterase Negative ASSESSMENT/PLAN: Pt. is a 53 y.o. F w/ PMHx. of HTN, HLD, NIDDM, LENIN, Neuropathy, Migraines, seizures, chronic pancreatitis, COPD presents to the ED with abdominal pain for 1 week. #Abdominal pain RUQ US negative for acute pathology Lipase LFTs, Bilirubin wnl c/w Morphine 4mg Q4H---> Pt. has documented ISTOPPed by Dr. Stack does receive Oxycodone 30mg and 5mg with last known refill in July 22. Called Dr. Haseeb Higgins from Poison control who stated it is very unlikely that the minimal amount of isopropyl alcohol that was ingested would cause "pancreatitis." f/u labs, consider mesenteric ischemia considering uncontrolled DM2. #Uncontrolled DM f/u A1c ISS TIDAC BGM TIDAC #Seizure disorder c/w Topomax f/u Carbamazepine level f/u consult to Dr. Martinez #Diarrhea f/u lactoferrin, Stool WBCs #FEN encourage PO intake monitor electrolytes, replete as needed encourage PO intake #DVT Ppx. Hep SQ TID Visit type - Emergency Visit Emergency Visit: Yes ED Registration Date: 09/04/18 Care time: The patient presented to the Emergency Department on the above date and was hospitalized for further evaluation of their emergent condition. - New Patient This patient is new to me today: Yes Date on this admission: 09/04/18 - Critical Care Critical Care patient: No
[2018-09-04 03:37] LABS: VENOUS PC02 42.7 mmHg (41-51); VENOUS PH 7.36 (7.31-7.41); VENOUS PO2 63.3 mmHg (30-40)
[2018-09-04] MEDS ORDERED: morphine SULFATE 4 MG/ML VIAL IVPUSH PRN (04:27)
[2018-09-04 05:40] VITALS: BMI 30.9
[2018-09-04] MEDS ORDERED: morphine SULFATE 4 MG/ML VIAL IVPUSH ONE (05:43)
[2018-09-04] MEDS: HEPARIN NA (PORCINE) 5,000 UNITS/ML 1ML VIAL SQ SCH ×3 (05:54→22:31)
[2018-09-04 07:50] LABS: MAGNESIUM 1.8 mg/dL (1.8-2.4); PHOSPHOROUS 3.8 mg/dL (2.5-4.9)
[2018-09-04 07:57] LABS: CHOLESTEROL 237 mg/dL (50-200); HDL CHOLESTEROL 36 mg/dL (40-60); TRIGLYCERIDES 358 mg/dL (0-150)
[2018-09-04] MEDS ORDERED: LACTATED RINGERS SOLUTION 1,000 ML/1,000 ML INFUS.BAG IV SCH (08:00)
[2018-09-04 08:25] LABS: BASO % 0.5 % (0-2.0); EOS % 1.8 % (0-4.5); HEMATOCRIT 39.6 % (32.4-45.2); HEMOGLOBIN 13.3 GM/dL (10.7-15.3); LYMPH % 58.5 % (8-40); MCH 31.7 pg (25.7-33.7); MCHC 33.6 g/dl (32.0-36.0); MEAN CELL VOLUME 94.2 fl (80-96); MEAN PLT VOLUME 9.1 fl (7.5-11.1); MONO % 3.7 % (3.8-10.2); NEUT % 35.5 % (42.8-82.8); PLATELET COUNT 314 K/MM3 (134-434); RDW 14.6 % (11.6-15.6); WHITE BLOOD COUNT 10.2 K/mm3 (4.0-10.0)
[2018-09-04] MEDS ORDERED: INSULIN (NOVOLOG) ASPART 100 UNITS/ML 10ML VIAL ONE (09:02)
[2018-09-04] MEDS: INSULIN SLIDING SCALE (NOVOLOG) 1 VIAL SQ SCH ×3 (10:07→17:11)
[2018-09-04 10:38] LABS: ANISOCYTOSIS 1+; MACROCYTOSIS 1+; OVALOCYTE 1+; PLATELET ESTIMATE NORMAL
[2018-09-04] MEDS ORDERED: INSULIN SLIDING SCALE (NOVOLOG) 1 VIAL SQ SCH (11:00)
--- NOTE | 2018-09-04 12:52 | EKG ---
Test Reason : Blood Pressure : / mmHG Vent. Rate : 085 BPM Atrial Rate : 085 BPM P-R Int : 152 ms QRS Dur : 094 ms QT Int : 390 ms P-R-T Axes : 070 072 017 degrees QTc Int : 464 ms NORMAL SINUS RHYTHM POSSIBLE LEFT ATRIAL ENLARGEMENT POSSIBLE ANTERIOR INFARCT (CITED ON OR BEFORE 09-AUG-2018) ABNORMAL ECG WHEN COMPARED WITH ECG OF 09-AUG-2018 17:18, T WAVE INVERSION NOW EVIDENT IN INFERIOR LEADS Confirmed by ABIGAIL PHAN, PINEDA ([id number]) on 09/04/2018 12:51:59 PM Referred By: Confirmed By:PINEDA HAYES MD
--- NOTE | 2018-09-04 13:01 | CON.CARD ---
Consult Consult Specialty:: Cardiology Referred by:: Dr. Dumont Reason for Consultation:: Elevated troponin - History of Present Illness Chief Complaint: Abdominal pain. History of Present Illness: 53 year-old woman with a PMHx of HTN, poorly controlled DM, hyperlipidemia, syncope, chest pain with normal echo and nuclear stress test in 2018, LENIN, diabetic neuropathy, seizure, chronic pancreatitis, COPD, SBO admitted 09/03 with RUQ pain x 1 week with intermittent emesis and watery diarrhea. Patient states this feels like her typical pancreatitis pain. But lipase is within normal range. Troponin is mildly elevated 0.21->0.20. She has occasional non-exertional chest pain. ECG showed no evidence of ischemia. She received IV fluid for severely elevated glucose. - History Source History Provided By: Patient, Medical Record Limitations to Obtaining History: No Limitations - Past Medical History Cardio/Vascular: Yes: HTN Pulmonary: Yes: Asthma Gastrointestinal: Yes: Pancreatitis Endocrine: Yes: Diabetes Mellitus - Alcohol/Substance Use Hx Alcohol Use: No - Smoking History Smoking history: Never smoked Have you smoked in the past 12 months: No Home Medications - Allergies Allergies/Adverse Reactions: Allergies Allergy/AdvReac Type Severity Reaction Status Date / Time Penicillins Allergy Severe Verified 09/03/18 19:36 - Home Medications Home Medications: Ambulatory Orders Aspirin [ASA -] 81 mg PO DAILY 07/28/18 Shyla Kelly 6,000 Units Capsule 37,000 units PO TID 07/28/18 Escitalopram Oxalate [Lexapro -] 20 mg PO DAILY 07/28/18 Gabapentin 800 mg PO TID 07/28/18 Ondansetron HCl [Zofran] 4 mg PO Q6H PRN 07/28/18 Oxycodone HCl [Oxycodone HCl ER] 30 mg PO Q12H 07/28/18 Quetiapine Fumarate [Seroquel] 300 mg PO HS 07/28/18 Topiramate [Topamax -] 100 mg PO DAILY 07/28/18 Insulin Detemir [Levemir Flextouch] 30 unit SQ DAILY #3 insuln.pen 07/29/18 Insulin Sliding Scale [Novolog Vial Sliding Scale -] See Protocol SQ ACHS #3 pen 07/29/18 Ondansetron [Zofran Odt -] 4 mg SL TID PRN #9 od.tablet 08/09/18 Alprazolam [Xanax] 2 mg PO DAILY 09/04/18 Alprazolam [Xanax] 2 mg PO PRN 09/04/18 Atorvastatin Ca [Lipitor] 20 mg PO DAILY 09/04/18 Estrogens, Conjugated [Premarin] 0.625 mg PO DAILY 09/04/18 Flonase - 50 mcg 09/04/18 Fluticasone/Salmeterol [Advair 250-50 Diskus] 500 mg 09/04/18 Gabapentin 300 mg PO 09/04/18 L.acidoph,Paracasei, B.lactis [Probiotic] 1 each PO 09/04/18 Losartan Potassium 25 mg PO DAILY 09/04/18 Omeprazole 40 mg PO DAILY 09/04/18 Ondansetron [Zofran -] 4 mg PO 09/04/18 Oxycodone HCl [Roxicodone] 5 mg PO PRN 09/04/18 Spiriva 09/04/18 Review of Systems - Review of Systems Constitutional: reports: Weakness Cardiovascular: reports: Chest Pain Respiratory: reports: No Symptoms Gastrointestinal: reports: Abdominal Pain Genitourinary: reports: No Symptoms Breasts: reports: No Symptoms Reported Vital Signs: Vital Signs Temperature 98.6 F 09/04/18 05:31 Pulse Rate 91 H 09/04/18 05:31 Respiratory Rate 18 09/04/18 05:31 Blood Pressure 143/74 09/04/18 05:31 O2 Sat by Pulse Oximetry (%) 98 09/04/18 05:31 General: Well developed. Obese. No acute distress. Head: Normocephalic. Atraumatic, Eyes: PERRLA, EOMI. Sclerae anicteric. Conjunctivae clear. Neck: Supple. No JVD. No bruits. Heart: Normal S1, S2: Regular rhythm and rate. No murmur. No gallop or rub. Lungs: Symmetrical air entry. Clear to auscultation. No crackle. No wheezing or rhonchi. Abdomen: Soft. Bowel sound positive. Diffuse tender. Extremities: No edema. No clubbing or cyanosis. - Other Data Labs, Other Data: CBC, BMP 09/04/18 06:00 09/03/18 20:33 Troponin, BNP 09/03/18 09/04/18 20:33 06:00 Troponin I 0.20 H 0.21 H Troponin, BNP 09/03/18 09/04/18 20:33 06:00 Troponin I 0.20 H 0.21 H Assessment/Plan 53 year-old woman with a PMHx of HTN, poorly controlled DM, hyperlipidemia, syncope, chest pain with normal echo and nuclear stress test in 2018, LENIN, diabetic neuropathy, seizure, chronic pancreatitis, COPD, SBO admitted 09/03 with RUQ pain x 1 week with intermittent emesis and watery diarrhea. Patient states this feels like her typical pancreatitis pain. But lipase is within normal range. Troponin is mildly elevated 0.21->0.20. She has occasional non-exertional chest pain. ECG showed no evidence of ischemia. She received IV fluid for severely elevated glucose. Mildly elevated troponin with normal echo and nuclear stress test recently, the elevated troponin could be caused by small vessel CAD. She has multiple risk factors of CAD. 1) Conservative cardiac care for now. 2) Start Metoprolol succinate 50 mg daily and Imdur 30 mg daily. 3) Continue aspirin, atorvastatin and losartan. 4) Out-pt cardiac follow up. 5) No further cardiac test recommended in this admission. Please call us for reconsult as needed.
[2018-09-04] MEDS ORDERED: ALPRAZolam 2 MG TABLET PO PRN (13:12)
[2018-09-04] MEDS ORDERED: ONDANSETRON *ODT* 4 MG TABLET SL PRN (13:12)
[2018-09-04] MEDS ORDERED: OXYCODONE HCL 30 MG PO SCH (13:15)
[2018-09-04] MEDS ORDERED: oxyCODONE HCL 10 MG SUSTAINED ACTING TABLET ONE ×2 (13:32→22:15)
[2018-09-04] MEDS ORDERED: oxyCODONE HCL 20 MG SUSTAINED ACTING TABLET PO ONE ×2 (13:33→22:15)
[2018-09-04] MEDS: OXYCODONE PO SCH ×2 (13:34→22:22)
[2018-09-04] MEDS ORDERED: CREON PO SCH (14:00)
[2018-09-04] MEDS: GABAPENTIN 400 MG CAPSULE (FP) PO SCH ×2 (14:37→22:22)
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
[2018-09-04 18:23] VITALS: BP 153/93; PULSE 92; TEMP 98.3
--- NOTE | 2018-09-04 19:28 | PN ---
Teaching Attending Note Name of Resident: Jarrod Santos ATTENDING PHYSICIAN STATEMENT I saw and evaluated the patient. I reviewed the resident's note and discussed the case with the resident. I agree with the resident's findings and plan as documented. SUBJECTIVE: Complains of diffuse abdominal discomfort, poor appetite, and diarrhea. No fever/chills/melena/hematochezia. Complains of nausea, no hematemesis. OBJECTIVE: Afebrile, Hemodynamically Stable. Last Vital Signs Temp Pulse Resp BP Pulse Ox 98.3 F 92 H 18 153/93 98 09/04/18 18:22 09/04/18 18:22 09/04/18 18:22 09/04/18 18:22 09/04/18 05:31 HEENT - Atraumatic, Nromocephalic. Heart - S1, S2, RRR Lungs - clear to auscultation Abdomen - mild generalized tenderness, soft, Bowel Sounds normal. Extremities - no edema, no calf tenderness Neuro - AAO x 3. Tone. Power normal all 4 extremities. Laboratory Results - last 24 hr 09/03/18 09/03/18 09/03/18 20:33 20:33 20:33 WBC 10.2 H RBC 4.87 Hgb 15.7 H Hct 46.1 H D MCV 94.6 MCH 32.3 MCHC 34.1 RDW 14.6 Plt Count 346 MPV 9.2 Absolute Neuts (auto) 4.5 Neutrophils % 43.9 Neutrophils % (Manual) Band Neutrophils % Lymphocytes % 49.2 H Lymphocytes % (Manual) Monocytes % 4.3 Monocytes % (Manual) Eosinophils % 1.8 Eosinophils % (Manual) Basophils % 0.8 Basophils % (Manual) Myelocytes % (Man) Promyelocytes % (Man) Blast Cells % (Manual) Nucleated RBC % 0 Metamyelocytes Hypochromia Platelet Estimate Polychromasia Poikilocytosis Anisocytosis Microcytosis Macrocytosis Ovalocytes VBG pH POC VBG pCO2 POC VBG pO2 VBG HCO3 VBG O2 Sat (Lauro) VBG Base Excess Sodium 132 L Potassium 4.7 Chloride 98 Carbon Dioxide 26 Anion Gap 7 L BUN 7 Creatinine 0.9 Creat Clearance w eGFR > 60 POC Glucometer Random Glucose 519 H* Hemoglobin A1c % Lactic Acid Calcium 9.3 Phosphorus Magnesium Total Bilirubin 0.5 AST 6 L ALT 13 Alkaline Phosphatase 103 Troponin I 0.20 H Total Protein 7.4 Albumin 3.4 Triglycerides Cholesterol Total LDL Cholesterol HDL Cholesterol Lipase 75 Urine Color Urine Appearance Urine pH Ur Specific West Urine Protein Urine Glucose (UA) Urine Ketones Urine Blood Urine Nitrite Urine Bilirubin Urine Urobilinogen Ur Leukocyte Esterase Carbamazepine 09/03/18 09/03/18 09/04/18 20:33 22:53 00:52 WBC RBC Hgb Hct MCV MCH MCHC RDW Plt Count MPV Absolute Neuts (auto) Neutrophils % Neutrophils % (Manual) Band Neutrophils % Lymphocytes % Lymphocytes % (Manual) Monocytes % Monocytes % (Manual) Eosinophils % Eosinophils % (Manual) Basophils % Basophils % (Manual) Myelocytes % (Man) Promyelocytes % (Man) Blast Cells % (Manual) Nucleated RBC % Metamyelocytes Hypochromia Platelet Estimate Polychromasia Poikilocytosis Anisocytosis Microcytosis Macrocytosis Ovalocytes VBG pH POC VBG pCO2 POC VBG pO2 VBG HCO3 VBG O2 Sat (Lauro) VBG Base Excess Sodium Potassium Chloride Carbon Dioxide Anion Gap BUN Creatinine Creat Clearance w eGFR POC Glucometer 352 Random Glucose Hemoglobin A1c % Lactic Acid Calcium Phosphorus Magnesium Total Bilirubin AST ALT Alkaline Phosphatase Troponin I Total Protein Albumin Triglycerides Cholesterol Total LDL Cholesterol HDL Cholesterol Lipase Urine Color Ltyellow Urine Appearance Slcloudy Urine pH 6.0 Ur Specific West 1.033 Urine Protein Negative Urine Glucose (UA) 3+ H Urine Ketones Negative Urine Blood Negative Urine Nitrite Negative Urine Bilirubin Negative Urine Urobilinogen Negative Ur Leukocyte Esterase Negative Carbamazepine < 0.5 L 09/04/18 09/04/18 09/04/18 03:28 06:00 06:00 WBC 10.2 H RBC 4.20 Hgb 13.3 Hct 39.6 MCV 94.2 MCH 31.7 MCHC 33.6 RDW 14.6 Plt Count 314 MPV 9.1 Absolute Neuts (auto) 3.6 Neutrophils % 35.5 L Neutrophils % (Manual) 32.0 L Band Neutrophils % 0.0 Lymphocytes % 58.5 H Lymphocytes % (Manual) 55.0 H Monocytes % 3.7 L Monocytes % (Manual) 4 Eosinophils % 1.8 Eosinophils % (Manual) 0.0 Basophils % 0.5 Basophils % (Manual) 0.0 Myelocytes % (Man) 1 Promyelocytes % (Man) 0 Blast Cells % (Manual) 0 Nucleated RBC % 0 Metamyelocytes 0 Hypochromia 0 Platelet Estimate Normal Polychromasia 0 Poikilocytosis 0 Anisocytosis 1+ Microcytosis 0 Macrocytosis 1+ Ovalocytes 1+ VBG pH 7.36 POC VBG pCO2 42.7 POC VBG pO2 63.3 H VBG HCO3 23.2 VBG O2 Sat (Lauro) 91.0 H VBG Base Excess -1.7 Sodium Potassium Chloride Carbon Dioxide Anion Gap BUN Creatinine Creat Clearance w eGFR POC Glucometer Random Glucose Hemoglobin A1c % 13.6 H Lactic Acid Calcium Phosphorus Magnesium Total Bilirubin AST ALT Alkaline Phosphatase Troponin I Total Protein Albumin Triglycerides Cholesterol Total LDL Cholesterol HDL Cholesterol Lipase Urine Color Urine Appearance Urine pH Ur Specific West Urine Protein Urine Glucose (UA) Urine Ketones Urine Blood Urine Nitrite Urine Bilirubin Urine Urobilinogen Ur Leukocyte Esterase Carbamazepine 09/04/18 09/04/18 09/04/18 06:00 06:00 06:00 WBC RBC Hgb Hct MCV MCH MCHC RDW Plt Count MPV Absolute Neuts (auto) Neutrophils % Neutrophils % (Manual) Band Neutrophils % Lymphocytes % Lymphocytes % (Manual) Monocytes % Monocytes % (Manual) Eosinophils % Eosinophils % (Manual) Basophils % Basophils % (Manual) Myelocytes % (Man) Promyelocytes % (Man) Blast Cells % (Manual) Nucleated RBC % Metamyelocytes Hypochromia Platelet Estimate Polychromasia Poikilocytosis Anisocytosis Microcytosis Macrocytosis Ovalocytes VBG pH POC VBG pCO2 POC VBG pO2 VBG HCO3 VBG O2 Sat (Lauro) VBG Base Excess Sodium Potassium Chloride Carbon Dioxide Anion Gap BUN Creatinine Creat Clearance w eGFR POC Glucometer Random Glucose Hemoglobin A1c % Lactic Acid Calcium Phosphorus 3.8 Magnesium 1.8 Total Bilirubin AST ALT Alkaline Phosphatase Troponin I 0.21 H Total Protein Albumin Triglycerides 364 H 358 H Cholesterol 237 H Total LDL Cholesterol 140 H HDL Cholesterol 36 L Lipase Urine Color Urine Appearance Urine pH Ur Specific West Urine Protein Urine Glucose (UA) Urine Ketones Urine Blood Urine Nitrite Urine Bilirubin Urine Urobilinogen Ur Leukocyte Esterase Carbamazepine 09/04/18 09/04/18 09/04/18 06:00 07:48 09:10 WBC RBC Hgb Hct MCV MCH MCHC RDW Plt Count MPV Absolute Neuts (auto) Neutrophils % Neutrophils % (Manual) Band Neutrophils % Lymphocytes % Lymphocytes % (Manual) Monocytes % Monocytes % (Manual) Eosinophils % Eosinophils % (Manual) Basophils % Basophils % (Manual) Myelocytes % (Man) Promyelocytes % (Man) Blast Cells % (Manual) Nucleated RBC % Metamyelocytes Hypochromia Platelet Estimate Polychromasia Poikilocytosis Anisocytosis Microcytosis Macrocytosis Ovalocytes VBG pH POC VBG pCO2 POC VBG pO2 VBG HCO3 VBG O2 Sat (Lauro) VBG Base Excess Sodium Potassium Chloride Carbon Dioxide Anion Gap BUN Creatinine Creat Clearance w eGFR POC Glucometer 356 353 Random Glucose Hemoglobin A1c % Lactic Acid 0.7 Calcium Phosphorus Magnesium Total Bilirubin AST ALT Alkaline Phosphatase Troponin I Total Protein Albumin Triglycerides Cholesterol Total LDL Cholesterol HDL Cholesterol Lipase Urine Color Urine Appearance Urine pH Ur Specific West Urine Protein Urine Glucose (UA) Urine Ketones Urine Blood Urine Nitrite Urine Bilirubin Urine Urobilinogen Ur Leukocyte Esterase Carbamazepine 09/04/18 09/04/18 11:27 16:46 WBC RBC Hgb Hct MCV MCH MCHC RDW Plt Count MPV Absolute Neuts (auto) Neutrophils % Neutrophils % (Manual) Band Neutrophils % Lymphocytes % Lymphocytes % (Manual) Monocytes % Monocytes % (Manual) Eosinophils % Eosinophils % (Manual) Basophils % Basophils % (Manual) Myelocytes % (Man) Promyelocytes % (Man) Blast Cells % (Manual) Nucleated RBC % Metamyelocytes Hypochromia Platelet Estimate Polychromasia Poikilocytosis Anisocytosis Microcytosis Macrocytosis Ovalocytes VBG pH POC VBG pCO2 POC VBG pO2 VBG HCO3 VBG O2 Sat (Lauro) VBG Base Excess Sodium Potassium Chloride Carbon Dioxide Anion Gap BUN Creatinine Creat Clearance w eGFR POC Glucometer 416 162 Random Glucose Hemoglobin A1c % Lactic Acid Calcium Phosphorus Magnesium Total Bilirubin AST ALT Alkaline Phosphatase Troponin I Total Protein Albumin Triglycerides Cholesterol Total LDL Cholesterol HDL Cholesterol Lipase Urine Color Urine Appearance Urine pH Ur Specific West Urine Protein Urine Glucose (UA) Urine Ketones Urine Blood Urine Nitrite Urine Bilirubin Urine Urobilinogen Ur Leukocyte Esterase Carbamazepine Current Medications Generic Name Dose Route Start Last Admin Trade Name Freq PRN Reason Stop Dose Admin Alprazolam 2 mg 09/04/18 13:12 Xanax - PO Q12H PRN ANXIETY Aspirin 81 mg 09/05/18 10:00 Asa - PO DAILY LANE Atorvastatin Calcium 20 mg 09/05/18 22:00 Lipitor - PO HS LANE Escitalopram Oxalate 20 mg 09/05/18 10:00 Lexapro - PO DAILY LANE Estrogens Conjugated 0.625 mg 09/05/18 10:00 Premarin - PO DAILY [facility] Gabapentin 800 mg 09/04/18 14:00 09/04/18 14:37 Neurontin - PO [address] Administration Heparin Sodium (Porcine) 5,000 unit 09/04/18 06:00 09/04/18 14:37 Heparin - SQ 5,[address] Administration Lactated Ringer's 1,000 ml in 1,000 mls @ 83 mls/hr 09/04/18 08:00 09/04/18 10:08 Lactated Ringers Solution IV 83 mls/hr ASDIR [facility] Administration Insulin Aspart 1 vial 09/04/18 11:00 09/04/18 17:11 Novolog Vial Sliding Scale - SQ 2 unit TIDAC [facility] Administration Protocol Losartan Potassium 25 mg 09/05/18 10:00 Cozaar - PO DAILY [facility] Non-Formulary Medication 37,000 units 09/04/18 14:00 Shyla Kelly 6,000 Units Capsule PO TID [facility] Ondansetron HCl 4 mg 09/04/18 13:12 Zofran Odt - SL TID PRN NAUSEA Oxycodone HCl 10 mg/ Oxycodone 30 mg 09/04/18 13:30 09/04/18 13:34 HCl 20 mg PO 30 mg BID [facility] Administration Pantoprazole Sodium 40 mg 09/05/18 10:00 Protonix - PO DAILY [facility] Quetiapine Fumarate 300 mg 09/04/18 22:00 Seroquel - PO HS [facility] Topiramate 100 mg 09/05/18 10:00 Topamax - PO DAILY [facility] Home Medications Medication Instructions Recorded Aspirin [ASA -] 81 mg PO DAILY 07/28/18 Shyla Kelly 6,000 Units Capsule 37,000 units PO TID 07/28/18 Escitalopram Oxalate [Lexapro -] 20 mg PO DAILY 07/28/18 Gabapentin 800 mg PO TID 07/28/18 Ondansetron HCl [Zofran] 4 mg PO Q6H PRN 07/28/18 Oxycodone HCl [Oxycodone HCl ER] 30 mg PO Q12H 07/28/18 Quetiapine Fumarate [Seroquel] 300 mg PO HS 07/28/18 Topiramate [Topamax -] 100 mg PO DAILY 07/28/18 Insulin Detemir [Levemir Flextouch] 30 unit SQ DAILY #3 insuln.pen 07/29/18 Insulin Sliding Scale [Novolog See Protocol SQ ACHS #3 pen 07/29/18 Vial Sliding Scale -] Ondansetron [Zofran Odt -] 4 mg SL TID PRN #9 od.tablet 08/09/18 Alprazolam [Xanax] 2 mg PO DAILY 09/04/18 Alprazolam [Xanax] 2 mg PO PRN 09/04/18 Atorvastatin Ca [Lipitor] 20 mg PO DAILY 09/04/18 Estrogens, Conjugated [Premarin] 0.625 mg PO DAILY 09/04/18 Flonase - 50 mcg 09/04/18 Fluticasone/Salmeterol [Advair 500 mg 09/04/18 250-50 Diskus] Gabapentin 300 mg PO 09/04/18 L.acidoph,Paracasei, B.lactis 1 each PO 09/04/18 [Probiotic] Losartan Potassium 25 mg PO DAILY 09/04/18 Omeprazole 40 mg PO DAILY 09/04/18 Ondansetron [Zofran -] 4 mg PO 09/04/18 Oxycodone HCl [Roxicodone] 5 mg PO PRN 09/04/18 Spiriva 09/04/18 ASSESSMENT AND PLAN: 53 year old female with with DM 2, Depression/Anxiety, HTN, Seizure Disorder, possible MALT, GERD, LENIN on CPAP, self-reported history of pancreatitis, with multiple admissions for lipase normal abdominal pain, chronic pain syndrome on Oxycodone 30mg BID, currently presents with complaints of generalized abdominal discomfort and diarrhea found to have mild elevation in Troponin. She denies any chest pain, or vomiting. She recently had Stress test which was negative. 1. Non-specific Abdominal Discomfort, unlikely pancreatitis Lipase within normal limits. If any further diarrhea, will send stool studies including culture and cdiff. GI consulted for recommendations regarding further investigation/management. 2. Elevated Troponin - chronic, flat Recent NM Stress Test negative Cardiology consulted. 3. Accidental Isopropyl Alcohol consumption - small volume No AG. Poison control aware. No further recommendations. 3. Reported Seizures at home Neuro eval requested. Continue Topiramate 4. DM 2, Uncontrolled with Hyperglycemia, and Neuropathy A1C 13.6 Questionable compliance with home insulin regimen- will reinstate and monitor respnse of fingerstick glucose to LEvemir and sliding scale. 5. Depression.Anxiety - Continue Seroquel, Lexapro, Xanax prn 6. HLD - Continue Lipitor. LDL 140/TG 364 - questionable compliance with statin - for out-patient monitoring, dose titration and follow up 7. GERD - Continue Protonix 8. HTN - Continue Losartan DVT Px - Heparin SQ
[2018-09-04] MEDS ORDERED: PT OWN MED DRAWER 7, Y5N ONE (21:29)
--- NOTE | 2018-09-04 21:47 | CON.NEURO ---
Consult - Past Medical History Cardio/Vascular: Yes: HTN Pulmonary: Yes: Asthma Gastrointestinal: Yes: Pancreatitis Endocrine: Yes: Diabetes Mellitus - Alcohol/Substance Use Hx Alcohol Use: No - Smoking History Smoking history: Never smoked Have you smoked in the past 12 months: No Home Medications - Allergies Allergies/Adverse Reactions: Allergies Allergy/AdvReac Type Severity Reaction Status Date / Time Penicillins Allergy Severe Verified 09/03/18 19:36 - Home Medications Home Medications: Ambulatory Orders Aspirin [ASA -] 81 mg PO DAILY 07/28/18 Shyla Kelly 6,000 Units Capsule 37,000 units PO TID 07/28/18 Escitalopram Oxalate [Lexapro -] 20 mg PO DAILY 07/28/18 Gabapentin 800 mg PO TID 07/28/18 Ondansetron HCl [Zofran] 4 mg PO Q6H PRN 07/28/18 Oxycodone HCl [Oxycodone HCl ER] 30 mg PO Q12H 07/28/18 Quetiapine Fumarate [Seroquel] 300 mg PO HS 07/28/18 Topiramate [Topamax -] 100 mg PO DAILY 07/28/18 Insulin Detemir [Levemir Flextouch] 30 unit SQ DAILY #3 insuln.pen 07/29/18 Insulin Sliding Scale [Novolog Vial Sliding Scale -] See Protocol SQ ACHS #3 pen 07/29/18 Ondansetron [Zofran Odt -] 4 mg SL TID PRN #9 od.tablet 08/09/18 Alprazolam [Xanax] 2 mg PO DAILY 09/04/18 Alprazolam [Xanax] 2 mg PO PRN 09/04/18 Atorvastatin Ca [Lipitor] 20 mg PO DAILY 09/04/18 Estrogens, Conjugated [Premarin] 0.625 mg PO DAILY 09/04/18 Flonase - 50 mcg 09/04/18 Fluticasone/Salmeterol [Advair 250-50 Diskus] 500 mg 09/04/18 Gabapentin 300 mg PO 09/04/18 L.acidoph,Paracasei, B.lactis [Probiotic] 1 each PO 09/04/18 Losartan Potassium 25 mg PO DAILY 09/04/18 Omeprazole 40 mg PO DAILY 09/04/18 Ondansetron [Zofran -] 4 mg PO 09/04/18 Oxycodone HCl [Roxicodone] 5 mg PO PRN 09/04/18 Spiriva 09/04/18 Physical Exam-Neuro Vital Signs: Vital Signs Temperature 98.3 F 09/04/18 18:22 Pulse Rate 92 H 09/04/18 18:22 Respiratory Rate 18 09/04/18 18:22 Blood Pressure 153/93 09/04/18 18:22 O2 Sat by Pulse Oximetry (%) 98 09/04/18 09:00 Labs: CBC, BMP 09/04/18 06:00 09/03/18 20:33 Assessment/Plan cc History of Seizure HPI 54 year old female multiple medical problem including HTN,HLD, NIDDM, MIgriane, Neuropathy, Seizure,chronic pancreatitis, copd. Patient came to hospital for abdominal lopez. She has one episode of seizure, she describes as tonic clonic, there was no tongue bite or incontinence. Patient has been on same medicaiton for last three years, and patient says she has been taking her medicaiton. SHe i son both gabapentin and topamax. Her cbz level were done and it was very low, patient denies that she was taking cbz. SHe is about ot sign out from the hospital. SHe had mri of brain and eeg and it was normal as per patient. she is from [place] and recently moved down here. PAST MEDICAL HISTORY: HTN, HLD, NIDDM, Migraines, LENIN, Neuropathy, seizures, chronic pancreatitis, COPD PAST SURGICAL HISTORY: Ostomy and reversal 2/2 SBO Social History: Smokin cig/day cut back form 3 PPD for 18 years Alcohol: Denies Drugs: Denies Family History: 18 siblings, 1 sister with Breast CA (ddx. @ 31) Allergies Penicillins Allergy (Severe, Verified 09/03/18 19:36) Anaphylaxis HOME MEDICATIONS: Home Medications Medication Instructions Recorded Aspirin [ASA -] 81 mg PO DAILY 07/28/18 Shyla Kelly 6,000 Units Capsule 12,000 units PO TID 07/28/18 Escitalopram Oxalate [Lexapro -] 20 mg PO DAILY 07/28/18 Gabapentin 800 mg PO TID 07/28/18 Ondansetron HCl [Zofran] 4 mg PO Q6H PRN 07/28/18 Oxycodone HCl [Oxycodone HCl ER] 30 mg PO Q12H 07/28/18 Quetiapine Fumarate [Seroquel] 300 mg PO HS 07/28/18 Topiramate [Topamax -] 100 mg PO DAILY 07/28/18 Insulin Detemir [Levemir Flextouch] 30 unit SQ DAILY #3 insuln.pen 07/29/18 Insulin Sliding Scale [Novolog See Protocol SQ ACHS #3 pen 07/29/18 Vial Sliding Scale -] Ondansetron [Zofran Odt -] 4 mg SL TID PRN #9 od.tablet 08/09/18 Oxycodone HCl 5 mg PO Q6H PRN #15 tablet MDD 4 08/09/18 ROS reviewed in chart NEUROLOGICAL Examination Alert oriented x 3 speech is normal, eomi, pupils reactive no motor weakness identified sensation i snormal planter is flexor no imaging done during hospital stay Assessment : History of epilepsy for 30 years, she has been stable on topamax and gabepntin . Patient has had breakthrough seizure two weeks ago and she says she has been going through lot of stress Plan: Continue topamax and gabapentin Her seizure has been controlled for three years. at this time, neuro exam is normal, no seizure in last three days, I advice her to continue same dose follow up outpatient, bring all records, may consider repeating mri of brain and eeg Thanking you so much Bertha Camacho MD
[2018-09-04] MEDS ORDERED: QUEtiapine FUMARATE 300 MG TABLET PO SCH (22:00)
[2018-09-04] MEDS ORDERED: INSULIN (LEVEMIR) 100 UNITS/ML UNITS SQ SCH (22:00)
--- NOTE | 2018-09-05 06:56 | PN ---
Progress Note (short form) - Note Progress Note: Pt. left AMA. By the time I went to the floor. Pt. had already left @ 11:45. Benefited and risks were explained by Dr. Turner including .
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
[2018-09-05] MEDS ORDERED: ESTROGENS,CONJUGATED 0.625 MG TABLET PO SCH (10:00)
[2018-09-05] MEDS ORDERED: PANTOPRAZOLE 40 MG TABLET (FP) PO SCH (10:00)
[2018-09-05] MEDS ORDERED: ASPIRIN 81 MG CHEWABLE TABLETS PO SCH (10:00)
[2018-09-05] MEDS ORDERED: LOSARTAN POTASSIUM 25 MG TABLET PO SCH (10:00)
[2018-09-05] MEDS ORDERED: TOPIRAMATE 100 MG TABLET PO SCH (10:00)
[2018-09-05] MEDS ORDERED: ESCITALOPRAM OXALATE 20 MG TABLET (FP) PO SCH (10:00)
[2018-09-05] MEDS ORDERED: ATORVASTATIN CA 20 MG TABLET (FP) PO SCH (22:00)
== END 2018-09-04 11:45 | disposition left against medical advice (07) | DRG 638 ==
LOC: JER 19:09 → JERBED 09-04 02:42 → OBSVTOIN 09-04 04:28 → J7W 09-04 05:08
PROVIDERS: ADMIT Internal Medicine
DX: E11.65 Type 2 diabetes mellitus with hyperglycemia (principal); K86.1 Other chronic pancreatitis; R10.9 Unspecified abdominal pain; J44.9 Chronic obstructive pulmonary disease, unspecified; I10 Essential (primary) hypertension; E78.5 Hyperlipidemia, unspecified; G47.33 Obstructive sleep apnea (adult) (pediatric); G43.909 Migraine, unspecified, not intractable, without status migrainosus; E11.40 Type 2 diabetes mellitus with diabetic neuropathy, unspecified; I25.2 Old myocardial infarction; G40.909 Epilepsy, unspecified, not intractable, without status epilepticus; R19.7 Diarrhea, unspecified; E66.9 Obesity, unspecified; Z68.30 Body mass index [BMI] 30.0-30.9, adult; K21.9 Gastro-esophageal reflux disease without esophagitis; R74.8 Abnormal levels of other serum enzymes; T51.2X1A Toxic effect of 2-Propanol, accidental (unintentional), initial encounter; Y92.89 Other specified places as the place of occurrence of the external cause; F41.8 Other specified anxiety disorders; F17.210 Nicotine dependence, cigarettes, uncomplicated
CPT/HCPCS: 36415; 76705-TC; 80053; 80061; 80156; 81003; 82803; 82962; 83036; 83605; 83690; 83721; 83735; 84100; 84478; 84484; 85025; 87086; 93005; 93010; 99283-25; G0378; J1644; J7030

== ENCOUNTER 2018-11-01 12:03 | Observation (INO) | payer BC, OTHER ==
[2018-11-01 12:27] VITALS: BMI 31.8
--- NOTE | 2018-11-01 12:36 | PDOC ---
History of Present Illness - General Chief Complaint: Shortness of Breath Stated Complaint: Shortness of Breath Time Seen by Provider: 11/01/18 12:35 - History of Present Illness Initial Comments: 11/01/18 12:36 Ms. Richard is a 53 yo female w/ pmh of HTN, HLD, DM, LENIN, neuropathy, seizure disorder, chronic pancreatitis, COPD, SBO, and with recent heart attack last week on the (s/p 2 stents) who presents for evaluation of 1 day history of shortness of breath with exacerbation of her normal pancreatitis pain. Patient reports symptoms started yesterday evening while she was sitting down and that she additionally had midline chest pain at this time. Patient reports symptoms continued until today and became worse after she took her normal oxycodone 30 at lunch time. Her pain increased at this time as did her shortness of breath, prompting her visit. She is currently complaining additionally of continued exacerbation of her abdominal pain. The patient denies headache and dizziness. Denies fever, chills, nausea, vomit, diarrhea and constipation. Denies dysuria, frequency, urgency and hematuria. Past History - Past Medical History Allergies/Adverse Reactions: Allergies Allergy/AdvReac Type Severity Reaction Status Date / Time Penicillins Allergy Severe Verified 11/01/18 12:26 Home Medications: Ambulatory Orders Aspirin [ASA -] 81 mg PO DAILY 07/28/18 Alprazolam [Xanax] 2 mg PO DAILY 09/04/18 Atorvastatin Ca [Lipitor] 80 mg PO DAILY 09/04/18 Losartan Potassium 25 mg PO DAILY 09/04/18 Carbamazepine 100 mg PO DAILY 11/01/18 Clopidogrel Bisulfate [Plavix] 75 mg PO DAILY 11/01/18 Doxycycline Hyclate 100 mg PO BID 11/01/18 Fluticasone Propion/Salmeterol [Wixela 100-50 Inhub] 1 each IH BID 11/01/18 Insulin (Novolog 70/30) [Novolog Mix 70/30 Vial] 20 ml SQ BID 11/01/18 Insulin Detemir [Levemir Flextouch] 44 unit SQ TID 11/01/18 Lipase/Protease/Amylase [Judion Dr 36,000 Units Capsule] 1 each PO TID 11/01/18 Meloxicam 15 mg PO DAILY 11/01/18 Quetiapine Fumarate [Seroquel] 300 mg PO HS 11/01/18 Topiramate [Topamax] 50 mg PO TID 11/01/18 Asthma: Yes CVA: No COPD: No Diabetes: Yes GI Disorders: Yes (pancreatitis) HTN: Yes Hypercholesterolemia: Yes Liver Disease: No Seizures: Yes - Surgical History Cardiac Surgery: Yes (stents) - Suicide/Smoking/Psychosocial Hx Smoking History: Current every day smoker Have you smoked in the past 12 months: No Number of Cigarettes Smoked Daily: 2 Cigars Per Day: 2 Information on smoking cessation initiated: No Hx Alcohol Use: No Drug/Substance Use Hx: No Review of Systems - Review of Systems Comments:: 11/01/18 12:53 GENERAL/CONSTITUTIONAL: No fever or chills. No weakness. HEAD, EYES, EARS, NOSE AND THROAT: No change in vision. No ear pain or discharge. No sore throat. CARDIOVASCULAR: +Chest pain / SOB as described. RESPIRATORY: No cough, wheezing, or hemoptysis. GASTROINTESTINAL: +Diffuse abdominal "pancreatitis" pain. No nausea, vomiting, diarrhea or constipation. GENITOURINARY: No dysuria, frequency, or change in urination. MUSCULOSKELETAL: No joint or muscle swelling or pain. No neck or back pain. SKIN: No rash NEUROLOGIC: No headache, vertigo, loss of consciousness, or change in strength/ sensation. ENDOCRINE: No increased thirst. No abnormal weight change HEMATOLOGIC/LYMPHATIC: No anemia, easy bleeding, or history of blood clots. ALLERGIC/IMMUNOLOGIC: No hives or skin allergy. *Physical Exam - Vital Signs Last Vital Signs Temp Pulse Resp BP Pulse Ox 97.6 F 87 18 110/83 100 11/01/18 12:24 11/01/18 12:24 11/01/18 12:24 11/01/18 12:24 11/01/18 12:24 - Physical Exam Comments: 11/01/18 12:54 GENERAL: Awake, alert, and fully oriented, in no acute distress HEAD: No signs of trauma, normocephalic, atraumatic EYES: PERRLA, EOMI, sclera anicteric, conjunctiva clear ENT: Auricles normal inspection, hearing grossly normal, nares patent, oropharynx clear without exudates. Moist mucosa NECK: Normal ROM, supple, no lymphadenopathy, JVD, or masses LUNGS: +Sternal TTP. No distress, speaks full sentences, clear to auscultation bilaterally HEART: Regular rate and rhythm, normal S1 and S2, no murmurs, rubs or gallops, peripheral pulses normal and equal bilaterally. ABDOMEN: +Diffuse abdominal TTP. Soft, normoactive bowel sounds. No guarding, no rebound. No masses EXTREMITIES: Normal inspection, Normal range of motion, no edema. No clubbing or cyanosis. NEUROLOGICAL: Cranial nerves II through XII grossly intact. Normal speech, normal gait, no focal sensorimotor deficits SKIN: Warm, Dry, normal turgor, no rashes or lesions noted. Heart Score/ECG Review - History History: Highly suspicious - Electrocardiogram EKG: Non specific repolarization disturbance - Age Age: 45-65 - Risk Factors Risk Factors Heart Score: Yes Hx Hypercholesterolemia, Yes Hx Hypertension, Yes Hx Diabetes, Yes Hx Obesity Based on the list above the patient has:: >/=3 risk factors or Hx atherosclerotic disease - Troponin Troponin: </= normal limit - Score Heart Score - Total: 6 ED Treatment Course - LABORATORY CBC & Chemistry Diagram: 11/01/18 13:12 11/01/18 13:12 Medical Decision Making - Medical Decision Making 11/01/18 13:00 Ms. Richard is a 53 yo female w/ pmh as described who presents for evaluation of symptoms concerning for ACS vs. COPD exacerbation vs. chronic pain vs. other acute process. Patient workup started with labs as below as well as EKG and CXR. 11/01/18 14:29 Labs significant only for mild white count as below. Otherwise grossly wnl. EKG non-concerning. HEART score 6. Given concerning history in setting of recent HI patient will be admitted to telemetry-obs for cardiology evaluation. 11/01/18 15:02 Patient evaluated by cardiology at bedside. Laboratory Results - last 24 hr 11/01/18 11/01/18 11/01/18 13:12 13:12 13:12 WBC 11.8 H RBC 4.58 Hgb 14.2 Hct 43.0 MCV 93.9 MCH 30.9 MCHC 32.9 RDW 14.7 Plt Count 421 D MPV 7.7 D Absolute Neuts (auto) 7.5 Neutrophils % 63.4 D Lymphocytes % 31.0 D Monocytes % 4.2 Eosinophils % 0.6 Basophils % 0.8 Nucleated RBC % 0 PT with INR 12.00 INR 1.02 PTT (Actin FS) 33.4 Sodium 135 L Potassium 4.7 Chloride 102 Carbon Dioxide 26 Anion Gap 6 L BUN 11 Creatinine 0.6 Est GFR (CKD-EPI)AfAm 121.46 Est GFR (CKD-EPI)NonAf 104.80 Random Glucose 288 H Calcium 9.9 Total Bilirubin 0.3 AST 8 L ALT 14 Alkaline Phosphatase 71 Creatine Kinase 44 Troponin I < 0.02 Total Protein 7.3 Albumin 3.5 Lipase 45 L *DC/Admit/Observation/Transfer Diagnosis at time of Disposition: Shortness of breath Chest pain Qualifiers: Chest pain type: unspecified Qualified Code(s): R07.9 - Chest pain, unspecified - Discharge Dispostion Decision to Admit order: Yes - Referrals - Patient Instructions - Post Discharge Activity
[2018-11-01 13:33] LABS: BASO % 0.8 % (0-2.0); EOS % 0.6 % (0-4.5); HEMOGLOBIN 14.2 GM/dL (10.7-15.3); MCH 30.9 pg (25.7-33.7); MCHC 32.9 g/dl (32.0-36.0); MEAN CELL VOLUME 93.9 fl (80-96); MEAN PLT VOLUME 7.7 fl (7.5-11.1); MONO % 4.2 % (3.8-10.2); NEUT % 63.4 % (42.8-82.8); PLATELET COUNT 421 K/MM3 (134-434); RBC 4.58 M/mm3 (3.60-5.2); RDW 14.7 % (11.6-15.6); WHITE BLOOD COUNT 11.8 K/mm3 (4.0-10.0)
[2018-11-01 14:02] LABS: ALBUMIN 3.5 g/dl (3.4-5.0); ALK PHOS 71 U/L (45-117); ANION GAP 6 MMOL/L (8-16); BILIRUBIN,TOTAL 0.3 mg/dL (0.2-1); BLOOD UREA NITROGEN 11 mg/dL (7-18); CALCIUM 9.9 mg/dL (8.5-10.1); CHLORIDE 102 mmol/L (98-107); CO2 26 mmol/L (21-32); CREATININE 0.6 mg/dL (0.55-1.3); GLUCOSE,RANDOM 288 mg/dL (74-106); LIPASE 45 U/L (73-393); POTASSIUM 4.7 mmol/L (3.5-5.1); SGOT/AST 8 U/L (15-37); SGPT/ALT 14 U/L (13-61); SODIUM 135 mmol/L (136-145); TOT PROT 7.3 g/dl (6.4-8.2)
[2018-11-01 14:09] LABS: INR 1.02 (0.83-1.09)
[2018-11-01 14:12] LABS: ACTIVATED PTT 33.4 SECONDS (25.2-36.5)
--- NOTE | 2018-11-01 14:12 | PDOC ---
Documentation entered by Rebecca Schuler SCRIBE, acting as scribe for Cordell Cervantes MD. Cordell Cervantes MD: This documentation has been prepared by the Ganga payne Amanda, SCRIBE, under my direction and personally reviewed by me in its entirety. I confirm that the documentation accurately reflects all work, treatment, procedures, and medical decision making performed by me. Attending Attestation - Resident Resident Name: Darek Galarza - ED Attending Attestation I have performed the following: I have examined & evaluated the patient, The case was reviewed & discussed with the resident, I agree w/resident's findings & plan, Exceptions are as noted - HPI HPI: 11/01/18 13:19 The patient is a 53 year old female with a significant past medical history of HTN, HLD, DM, LENIN, neuropathy, seizure disorder, chronic pancreatitis, COPD, SBO , and with recent heart attack last week on the (s/p 2 stents) who presents for evaluation of shortness of breath for one day. She states her SOB is exacerbating her chronic pancreatitis pain. The patient denies headache and dizziness. Denies fever, chills, nausea, vomit, diarrhea and constipation. Denies dysuria, frequency, urgency and hematuria. - Physicial Exam PE: 11/01/18 13:21 Vitals: Triage vital signs reviewed General Appearance: No acute distress, well nourished, well developed Head: Atraumatic Eyes: Pupils equal reactive round, extraocular movement intact Neck: Supple; No nuchal rigidity Chest Wall: Nontender Cardiac: Regular rate and rhythm, no murmurs, no rubs, no gallops Lungs: Clear to auscultation bilateral, good air movement bilaterally Abdomen: Soft, nondistended, normal bowel sounds, nontender to palpation Extremities: Full range of motion to all extremities, no cyanosis, clubbing, or edema Skin: Warm and dry, no rashes or lesions, no rash, no petechiae Neuro: AOX3; Cranial Nerves 2-12 grossly intact, Strength intact to all extremities, Sensation intact to all extremities Psych: Normal mood, normal affect - Medical Decision Making 11/01/18 15:54 53 year old female with a significant past medical history of HTN, HLD, DM, LENIN , neuropathy, seizure disorder, chronic pancreatitis, COPD, SBO, and with recent heart attack last week on the (s/p 2 stents) who presents for evaluation of shortness of breath for one day. She states her SOB is exacerbating her chronic pancreatitis pain. Heart score 4 low suspicion for Zoila's pericarditis status post stenting low suspicion for acute LA however given patient's pain and comorbidities we'll observe for serial troponins and further management. 11/01/18 15:57 Heart Score/ECG Review - History History: Moderately suspicious - Electrocardiogram EKG: Normal - Age Age: 45-65 - Risk Factors Risk Factors Heart Score: Yes Hx Hypercholesterolemia, Yes Hx Hypertension, Yes Hx Diabetes Based on the list above the patient has:: >/=3 risk factors or Hx atherosclerotic disease - Troponin Troponin: </= normal limit - Score Heart Score - Total: 4 - ECG Impressions Comment:: 11/01/18 15:[address] elevations or T-wave inversions
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
[2018-11-01] MEDS ORDERED: ALBUTEROL SO4 2.5/IPRATROPIUM 0.5 INH SOL 3 ML VIAL.NEB. NEB PRN (15:39)
[2018-11-01] MEDS ORDERED: morphine CARPU-JECT 2 MG/1 ML DISP.SYRIN IVPUSH PRN (15:39)
[2018-11-01] MEDS ORDERED: PANTOPRAZOLE 40 MG TABLET (FP) ONE (15:48)
[2018-11-01] MEDS ORDERED: LOSARTAN POTASSIUM 50 MG TABLET (FP) ONE (15:49)
[2018-11-01] MEDS ORDERED: CLOPIDOGREL BISULFATE 75 MG TABLET (FP) ONE (15:49)
[2018-11-01] MEDS: CLOPIDOGREL BISULFATE 75 MG TABLET (FP) PO SCH (15:57)
[2018-11-01] MEDS: LOSARTAN POTASSIUM 25 MG TABLET PO SCH (15:57)
[2018-11-01] MEDS: PANTOPRAZOLE 40 MG TABLET (FP) PO SCH (15:57)
[2018-11-01] MEDS: metoPROLOL SUCCINATE 25 MG TAB.SR.24H (FP) PO SCH (15:57)
--- NOTE | 2018-11-01 16:09 | EKG ---
Test Reason : Blood Pressure : / mmHG Vent. Rate : 088 BPM Atrial Rate : 088 BPM P-R Int : 132 ms QRS Dur : 082 ms QT Int : 372 ms P-R-T Axes : 064 039 032 degrees QTc Int : 450 ms NORMAL SINUS RHYTHM POSSIBLE LEFT ATRIAL ENLARGEMENT BORDERLINE ECG WHEN COMPARED WITH ECG OF 03-SEP-2018 22:56, NO SIGNIFICANT CHANGE WAS FOUND Confirmed by ALBIN NICHOLS MD ([id number]) on 11/01/2018 4:09:27 PM Referred By: Confirmed By:ALBIN NICHOLS MD
--- NOTE | 2018-11-01 16:33 | PN ---
Teaching Attending Note Name of Resident: Koby Blunt ATTENDING PHYSICIAN STATEMENT I saw and evaluated the patient. I reviewed the resident's note and discussed the case with the resident. I agree with the resident's findings and plan as documented. SUBJECTIVE: Patient is a 53yo female with PMHx of HTN, HLD, T2DM with peripheral neuropathy ,chronic pancreatitis, CAD s/p stents due to having NSTME on 2018 at [facility] s/p cardiac cath with two-vessel disease , CAD with a 99% proximal left circumflex and a 99% proximal RCA and left main and LAD. She underwent MONTSERRAT x2 to the proximal circumflex and proximal RCA. Patient presented today with mid abdominal pain, patient states that she has pain all the time and takes Oxycodone 30mg po bid at home. Patient is c/o having chills. OBJECTIVE: Vital Signs Temperature 97.6 F 11/01/18 12:24 Pulse Rate 82 11/01/18 15:00 Respiratory Rate 18 11/01/18 15:00 Blood Pressure 146/88 11/01/18 15:00 O2 Sat by Pulse Oximetry (%) 100 11/01/18 15:00 GENERAL: The patient is awake, alert, and fully oriented, in no acute distress. HEAD: Normal with no signs of trauma. EYES: PERRL, extraocular movements intact, sclera anicteric, conjunctiva clear. ENT: Ears normal, oropharynx clear without exudates, moist mucous membranes. NECK: Trachea midline, full range of motion, supple. LUNGS: Breath sounds equal, clear to auscultation bilaterally, no wheezes, no crackles, no accessory muscle use. HEART: Regular rate and rhythm, S1, S2 without murmur, rub or gallop. ABDOMEN: Soft, positive for midepigastric pain on palpation , ND, normoactive bowel sounds, no guarding, no rebound, no hepatosplenomegaly, no masses. EXTREMITIES: 2+ pulses, warm, well-perfused, no edema. NEUROLOGICAL: Cranial nerves II through XII grossly intact. Normal speech, gait not observed. PSYCH: Normal mood, normal affect. SKIN: Warm, dry, normal turgor, no rashes or lesions noted CBCD WBC 11.8 K/mm3 (4.0-10.0) H 11/01/18 13:12 RBC 4.58 M/mm3 (3.60-5.2) 11/01/18 13:12 Hgb 14.2 GM/dL (10.7-15.3) 11/01/18 13:12 Hct 43.0 % (32.4-45.2) 11/01/18 13:12 MCV 93.9 fl (80-96) 11/01/18 13:12 MCHC 32.9 g/dl (32.0-36.0) 11/01/18 13:12 RDW 14.7 % (11.6-15.6) 11/01/18 13:12 Plt Count 421 K/MM3 (134-434) D 11/01/18 13:12 MPV 7.7 fl (7.5-11.1) D 11/01/18 13:12 CMP Sodium 135 mmol/L (136-145) L 11/01/18 13:12 Potassium 4.7 mmol/L (3.5-5.1) 11/01/18 13:12 Chloride 102 mmol/L (98-107) 11/01/18 13:12 Carbon Dioxide 26 mmol/L (21-32) 11/01/18 13:12 Anion Gap 6 MMOL/L (8-16) L 11/01/18 13:12 BUN 11 mg/dL (7-18) 11/01/18 13:12 Creatinine 0.6 mg/dL (0.55-1.3) 11/01/18 13:12 Random Glucose 288 mg/dL (74-106) H 11/01/18 13:12 Calcium 9.9 mg/dL (8.5-10.1) 11/01/18 13:12 Total Bilirubin 0.3 mg/dL (0.2-1) 11/01/18 13:12 AST 8 U/L (15-37) L 11/01/18 13:12 ALT 14 U/L (13-61) 11/01/18 13:12 Alkaline Phosphatase 71 U/L (45-117) 11/01/18 13:12 Total Protein 7.3 g/dl (6.4-8.2) 11/01/18 13:12 Albumin 3.5 g/dl (3.4-5.0) 11/01/18 13:12 CARDIAC ENZYMES Creatine Kinase 44 U/L (26-192) 11/01/18 13:12 Troponin I < 0.02 ng/ml (0.00-0.05) 11/01/18 13:12 Current Medications Generic Name Dose Route Start Last Admin Trade Name Freq PRN Reason Stop Dose Admin Albuterol/Ipratropium 1 amp 11/01/18 15:39 Duoneb - NEB Q6H PRN SHORTNESS OF BREATH Alprazolam 2 mg 11/02/18 10:00 Xanax - PO DAILY [facility] Aspirin 81 mg 11/02/18 10:00 Asa - PO DAILY [facility] Atorvastatin Calcium 80 mg 11/01/18 20:00 Lipitor - PO DAILY [facility] Carbamazepine 100 mg 11/01/18 22:00 Tegretol - PO BID [facility] Clopidogrel Bisulfate 75 mg 11/01/18 15:45 11/01/18 15:57 Plavix - PO 75 mg DAILY [facility] Administration Losartan Potassium 25 mg 11/01/18 15:45 11/01/18 15:57 Cozaar - PO 25 mg DAILY [facility] Administration Metoprolol Succinate 25 mg 11/01/18 15:45 11/01/18 15:57 Toprol Xl - PO 25 mg DAILY [facility] Administration Morphine Sulfate 2 mg 11/01/18 15:39 Morphine Injection - IVPUSH Q6H PRN PAIN LEVEL 6-10 Pancrelipase 1 cap 11/01/18 22:00 Shyla Kelly 36,000 Units Capsule PO TID [facility] Pantoprazole Sodium 40 mg 11/01/18 15:45 11/01/18 15:57 Protonix - PO 40 mg DAILY [facility] Administration Pregabalin 150 mg 11/01/18 20:00 Lyrica - PO DAILY@1999 [facility] Quetiapine Fumarate 300 mg 11/01/18 22:00 Seroquel - PO HS [facility] Fluticasone/Salmeterol 1 puff 11/01/18 22:00 Advair 100mcg/50mcg - IH BID [facility] Topiramate 50 mg 11/01/18 22:00 Topamax - PO TID [facility] Home Medications Medication Instructions Recorded Aspirin [ASA -] 81 mg PO DAILY 07/28/18 Alprazolam [Xanax] 2 mg PO DAILY 09/04/18 Atorvastatin Ca [Lipitor] 80 mg PO DAILY 09/04/18 Losartan Potassium 25 mg PO DAILY 09/04/18 Albuterol Sulfate Inhaler - 1 - 2 inh PO QID PRN 11/01/18 [Ventolin Hfa Inhaler -] Carbamazepine 100 mg PO BID 11/01/18 Carvedilol [Coreg] 6.25 mg PO BID 11/01/18 Clopidogrel Bisulfate [Plavix] 75 mg PO DAILY 11/01/18 Doxycycline Hyclate 100 mg PO BID 11/01/18 Escitalopram Oxalate [Lexapro -] 20 mg PO DAILY 11/01/18 Fluticasone Propion/Salmeterol 1 each IH BID 11/01/18 [Wixela 100-50 Inhub] Fluticasone/Salmeterol [Advair 1 each IH QID PRN 11/01/18 250-50 Diskus] Gabapentin 300 mg PO TID 11/01/18 Insulin (Novolog 70/30) [Novolog 20 ml SQ BID 11/01/18 Mix 70/30 Vial] Insulin Detemir [Levemir Flextouch] 44 unit SQ TID 11/01/18 Lipase/Protease/Amylase [Shyla Dr 1 each PO TID 11/01/18 36,000 Units Capsule] Meloxicam 15 mg PO DAILY 11/01/18 Pantoprazole Sodium 40 mg PO DAILY 11/01/18 Pregabalin [Lyrica] 150 mg PO DAILY 11/01/18 Quetiapine Fumarate [Seroquel] 300 mg PO HS 11/01/18 Topiramate [Topamax] 50 mg PO TID 11/01/18 ASSESSMENT AND PLAN: Patient is a 53yo female with PMHx of HTN, HLD, T2DM with peripheral neuropathy ,chronic pancreatitis, CAD s/p 2 stents with MONTSERRAT, presented with atypical chest pain and midepigastric pain, as per patient, she has chronic pancreatic pain and is on Oxycodone. # Acute over chronic pancreatitis: GI Dr. Oshea , continue creon and pain meds as needed. # Atypical chest pain with hx of CAD s/p pci with 2 MONTSERRAT , so far enzymes are negative. CArdio , contninue Plavix and aspirin. #T2DM ss with coverage # Hx of HTN continue home meds # Hx of HLD, repeat the lipid panel in am, continue aterovastatin # Hx of peripheral neuropathy continue Gabapentin and Lyrica DVT Px: Heparin
--- NOTE | 2018-11-01 16:55 | HP ---
CHIEF COMPLAINT: pain in abdomen, anxiety and palpitations HISTORY OF PRESENT ILLNESS: Ms. Richard is a 53 yo female w/ pmh of HTN, HLD, DM, LENIN, neuropathy, seizure disorder, chronic pancreatitis, COPD, SBO, and with recent heart attack last week on the (s/p 2 stents in [facility]) who states that she woke up in middle of night with pain in her abdomen which was similar to her pancrearttis pain. In morning she got anxious and that time she felt chest pain, palpitations and trouble in breathing and she called ems. She also reported that she had one episode of vomiting in morning and she took xycodone for her pain and it didnt help. She alos reports pain in chest on palpationa nd deep breath. Denies any URI symptoms. The patient denies headache and dizziness. Denies fever, chills, nausea, vomit, diarrhea and constipation. Denies dysuria, frequency, urgency and hematuria. Pt was feeling better but still reports tenderness in costochondarl junctions. Case discussed with dr rodríguez. Pt has vague symptoms and her ekg didn't show any st changes and trop is negative we can monitor her in obs and repeat trop as pt recently has stent placed. ER course was notable for: (1)cbc, cmp, trop i (2)cxr (3) PAST MEDICAL HISTORY: HTN, HLD, NIDDM, Migraines, LENIN, Neuropathy, seizures, chronic pancreatitis, COPD PAST SURGICAL HISTORY: Ostomy and reversal 2/2 SBO Social History: Smokin cig/day cut back form 3 PPD for 18 years Alcohol: Denies Drugs: Denies Family History: 18 siblings, 1 sister with Breast CA (ddx. @ 31) Allergies Allergies Penicillins Allergy (Severe, Verified 11/01/18 12:26) Anaphylaxis HOME MEDICATIONS: Home Medications Medication Instructions Recorded Aspirin [ASA -] 81 mg PO DAILY 07/28/18 Alprazolam [Xanax] 2 mg PO DAILY 09/04/18 Atorvastatin Ca [Lipitor] 80 mg PO DAILY 09/04/18 Losartan Potassium 25 mg PO DAILY 09/04/18 Albuterol Sulfate Inhaler - 1 - 2 inh PO QID PRN 11/01/18 [Ventolin Hfa Inhaler -] Carbamazepine 100 mg PO BID 11/01/18 Carvedilol [Coreg] 6.25 mg PO BID 11/01/18 Clopidogrel Bisulfate [Plavix] 75 mg PO DAILY 11/01/18 Doxycycline Hyclate 100 mg PO BID 11/01/18 Escitalopram Oxalate [Lexapro -] 20 mg PO DAILY 11/01/18 Fluticasone Propion/Salmeterol 1 each IH BID 11/01/18 [Wixela 100-50 Inhub] Fluticasone/Salmeterol [Advair 1 each IH QID PRN 11/01/18 250-50 Diskus] Gabapentin 300 mg PO TID 11/01/18 Insulin (Novolog 70/30) [Novolog 20 ml SQ BID 11/01/18 Mix 70/30 Vial] Insulin Detemir [Levemir Flextouch] 44 unit SQ TID 11/01/18 Lipase/Protease/Amylase [Creon Dr 1 each PO TID 11/01/18 36,000 Units Capsule] Meloxicam 15 mg PO DAILY 11/01/18 Pantoprazole Sodium 40 mg PO DAILY 11/01/18 Pregabalin [Lyrica] 150 mg PO DAILY 11/01/18 Quetiapine Fumarate [Seroquel] 300 mg PO HS 11/01/18 Topiramate [Topamax] 50 mg PO TID 11/01/18 REVIEW OF SYSTEMS CONSTITUTIONAL: Absent: fever, chills, diaphoresis, generalized weakness, malaise, loss of appetite, weight change HEENT: Absent: rhinorrhea, nasal congestion, throat pain, throat swelling, difficulty swallowing, mouth swelling, ear pain, eye pain, visual changes CARDIOVASCULAR: Absent: chest pain, syncope, palpitations, irregular heart rate, lightheadedness , peripheral edema RESPIRATORY: Absent: cough, shortness of breath, dyspnea with exertion, orthopnea, wheezing, stridor, hemoptysis GASTROINTESTINAL: Absent: abdominal pain, abdominal distension, nausea, vomiting, diarrhea, constipation, melena, hematochezia GENITOURINARY: Absent: dysuria, frequency, urgency, hesitancy, hematuria, flank pain, genital pain MUSCULOSKELETAL: b/l chronic leg pain Absent: myalgia, arthralgia, joint swelling, back pain, neck pain SKIN: Absent: rash, itching, pallor HEMATOLOGIC/IMMUNOLOGIC: Absent: easy bleeding, easy bruising, lymphadenopathy, frequent infections ENDOCRINE: Absent: unexplained weight gain, unexplained weight loss, heat intolerance, cold intolerance NEUROLOGIC: Absent: headache, focal weakness or paresthesias, dizziness, unsteady gait, seizure, mental status changes, bladder or bowel incontinence PSYCHIATRIC: Absent: anxiety, depression, suicidal or homicidal ideation, hallucinations. PHYSICAL EXAMINATION Vital Signs - 24 hr 11/01/18 11/01/18 12:24 15:00 Temperature 97.6 F Pulse Rate 87 Pulse Rate [ 82 Apical] Respiratory 18 18 Rate Blood Pressure 110/83 Blood Pressure 146/88 [Left Arm] O2 Sat by Pulse 100 100 Oximetry (%) GENERAL: Awake, alert, and fully oriented, in no acute distress. on 2 L oxygen HEAD: Normal with no signs of trauma. EARS, NOSE, THROAT: Moist mucous membranes. NECK: Normal range of motion, supple without lymphadenopathy, JVD, or masses. LUNGS: Breath sounds equal, clear to auscultation bilaterally. No wheezes, and no crackles. No accessory muscle use. b/l decreased air entry HEART: Regular rate and rhythm, normal S1 and S2 without murmur, rub or gallop. ABDOMEN: Soft, mild tender, not distended, normoactive bowel sounds, no guarding , no rebound, no masses. MUSCULOSKELETAL: Normal range of motion at all joints. No bony deformities or tenderness. No CVA tenderness. UPPER EXTREMITIES: 2+ pulses, warm, well-perfused. No cyanosis. No clubbing. No peripheral edema. LOWER EXTREMITIES: 2+ pulses, warm, well-perfused. No calf tenderness. No peripheral edema. NEUROLOGICAL: Normal speech. PSYCHIATRIC: Cooperative. Good eye contact. SKIN: Warm, dry, Laboratory Results - last 24 hr 11/01/18 11/01/18 11/01/18 13:12 13:12 13:12 WBC 11.8 H RBC 4.58 Hgb 14.2 Hct 43.0 MCV 93.9 MCH 30.9 MCHC 32.9 RDW 14.7 Plt Count 421 D MPV 7.7 D Absolute Neuts (auto) 7.5 Neutrophils % 63.4 D Lymphocytes % 31.0 D Monocytes % 4.2 Eosinophils % 0.6 Basophils % 0.8 Nucleated RBC % 0 PT with INR 12.00 INR 1.02 PTT (Actin FS) 33.4 Sodium 135 L Potassium 4.7 Chloride 102 Carbon Dioxide 26 Anion Gap 6 L BUN 11 Creatinine 0.6 Est GFR (CKD-EPI)AfAm 121.46 Est GFR (CKD-EPI)NonAf 104.80 Random Glucose 288 H Calcium 9.9 Total Bilirubin 0.3 AST 8 L ALT 14 Alkaline Phosphatase 71 Creatine Kinase 44 Troponin I < 0.02 Total Protein 7.3 Albumin 3.5 Lipase 45 L ASSESSMENT/PLAN: Pt. is a 53 y.o. F w/ PMHx. of HTN, HLD, NIDDM, LENIN, Neuropathy , Migraines, seizures, chronic pancreatitis, COPD presents to the ED with abdominal pain, chest pain, sob atypical chest pain with costochondritis cardiac monitoring ekg no st changes repeat second set of trop monitor vitals monitor intake/output o2 to keep spo2> 90 cardiology on case pain control low salt and low cholestrol diet. #Abdominal pain could be viral gastroentritis. Less likely pancreatitis ultrasound abdomen lipase normal. full liquid diet as tolerated pain control #Uncontrolled DM ISS TIDAC BGM TIDAC #Seizure disorder c/w Topomax f/u Carbamazepine level CAD/htn/hld continue home meds monitor vitals cardiology consult cardiac monitoring anxiety continue home med xanax h/o lenin uses cpap at 11 in home h/o ch pancreatitis h/o peripheral neuropathy on lyrica h/o COPD duoneb prn symbicort #FEN encourage PO intake monitor electrolytes, replete as needed encourage PO intake #DVT Ppx. Hep SQ TID Visit type - Emergency Visit Emergency Visit: Yes ED Registration Date: 11/01/18 Care time: The patient presented to the Emergency Department on the above date and was hospitalized for further evaluation of their emergent condition. - New Patient This patient is new to me today: Yes Date on this admission: 11/02/18 - Critical Care Critical Care patient: No
[2018-11-01] MEDS ORDERED: PREGABALIN 75 MG CAPSULE PO SCH (20:00)
[2018-11-01] MEDS ORDERED: QUEtiapine FUMARATE 100 MG TABLET (FP) ONE (20:48)
[2018-11-01] MEDS ORDERED: PT OWN MED DRAWER 7, Y5N ONE (20:49)
[2018-11-01] MEDS: ATORVASTATIN CA 20 MG TABLET (FP) PO SCH (20:53)
[2018-11-01] MEDS: INSULIN SLIDING SCALE (NOVOLOG) 1 VIAL SQ SCH (21:02)
[2018-11-01] MEDS: HEPARIN NA (PORCINE) 5,000 UNITS/ML 1ML VIAL SQ SCH (21:02)
[2018-11-01] MEDS: TOPIRAMATE 25 MG TABLET (FP) PO SCH (21:03)
[2018-11-01] MEDS ORDERED: QUEtiapine FUMARATE 300 MG TABLET PO SCH (22:00)
[2018-11-01] MEDS: carBAMazepine 100 MG TAB.CHEW PO SCH (22:26)
[2018-11-01] MEDS: FLUTICASONE/SALMETEROL 100 MCG/50 MCG DISKUS IH SCH (22:27)
[2018-11-01] MEDS: LIPASE/PROTEASE/AMYLASE 36,000 UNIT CAPSULE PO SCH (22:27)
[2018-11-02] MEDS ORDERED: PT OWN MED DRAWER 7, Y5N ONE ×3 (06:49→11:25)
[2018-11-02] MEDS: LIPASE/PROTEASE/AMYLASE 36,000 UNIT CAPSULE PO SCH (06:51)
[2018-11-02] MEDS: TOPIRAMATE 25 MG TABLET (FP) PO SCH ×2 (06:51→14:27)
[2018-11-02] MEDS: HEPARIN NA (PORCINE) 5,000 UNITS/ML 1ML VIAL SQ SCH ×2 (06:51→14:26)
[2018-11-02] MEDS: INSULIN SLIDING SCALE (NOVOLOG) 1 VIAL SQ SCH ×3 (06:52→11:32)
--- NOTE | 2018-11-02 08:18 | PN ---
Progress Note (short form) - Note Progress Note: Vital Signs Temperature 97.5 F L 11/02/18 05:23 Pulse Rate 85 11/02/18 05:23 Respiratory Rate 18 11/02/18 05:23 Blood Pressure 102/69 11/02/18 05:23 O2 Sat by Pulse Oximetry (%) 98 11/02/18 07:00 GENERAL: The patient is awake, alert, and fully oriented, in no acute distress. HEAD: Normal with no signs of trauma. EYES: PERRL, extraocular movements intact, sclera anicteric, conjunctiva clear. ENT: Ears normal, oropharynx clear without exudates, moist mucous membranes. NECK: Trachea midline, full range of motion, supple. LUNGS: Breath sounds equal, clear to auscultation bilaterally, no wheezes, no crackles, no accessory muscle use. HEART: Regular rate and rhythm, S1, S2 without murmur, rub or gallop. ABDOMEN: Soft, positive for midepigastric pain on palpation , ND, normoactive bowel sounds, no guarding, no rebound, no hepatosplenomegaly, no masses. EXTREMITIES: 2+ pulses, warm, well-perfused, no edema. NEUROLOGICAL: Cranial nerves II through XII grossly intact. Normal speech, gait not observed. PSYCH: Normal mood, normal affect. SKIN: Warm, dry, normal turgor, no rashes or lesions noted CBCD WBC 8.2 K/mm3 (4.0-10.0) 11/02/18 07:55 RBC 4.60 M/mm3 (3.60-5.2) 11/02/18 07:55 Hgb 14.0 GM/dL (10.7-15.3) 11/02/18 07:55 Hct 43.2 % (32.4-45.2) 11/02/18 07:55 MCV 94.0 fl (80-96) 11/02/18 07:55 MCHC 32.3 g/dl (32.0-36.0) 11/02/18 07:55 RDW 14.9 % (11.6-15.6) 11/02/18 07:55 Plt Count 413 K/MM3 (134-434) 11/02/18 07:55 MPV 7.8 fl (7.5-11.1) 11/02/18 07:55 CMP Sodium 139 mmol/L (136-145) 11/02/18 07:55 Potassium 4.0 mmol/L (3.5-5.1) 11/02/18 07:55 Chloride 104 mmol/L (98-107) 11/02/18 07:55 Carbon Dioxide 27 mmol/L (21-32) 11/02/18 07:55 Anion Gap 8 MMOL/L (8-16) 11/02/18 07:55 BUN 15 mg/dL (7-18) 11/02/18 07:55 Creatinine 0.5 mg/dL (0.55-1.3) L 11/02/18 07:55 Random Glucose 230 mg/dL (74-106) H 11/02/18 07:55 Calcium 9.7 mg/dL (8.5-10.1) 11/02/18 07:55 Total Bilirubin 0.3 mg/dL (0.2-1) 11/02/18 07:55 AST 7 U/L (15-37) L 11/02/18 07:55 ALT 14 U/L (13-61) 11/02/18 07:55 Alkaline Phosphatase 66 U/L (45-117) 11/02/18 07:55 Total Protein 6.8 g/dl (6.4-8.2) 11/02/18 07:55 Albumin 3.3 g/dl (3.4-5.0) L 11/02/18 07:55 CARDIAC ENZYMES Creatine Kinase 27 U/L (26-192) 11/02/18 07:55 Troponin I < 0.02 ng/ml (0.00-0.05) 11/02/18 07:55 Current Medications Generic Name Dose Route Start Last Admin Trade Name Freq PRN Reason Stop Dose Admin Albuterol/Ipratropium 1 amp 11/01/18 15:39 Duoneb - NEB Q6H PRN SHORTNESS OF BREATH Alprazolam 2 mg 11/02/18 10:00 Xanax - PO DAILY LANE Aspirin 81 mg 11/02/18 10:00 Asa - PO DAILY LANE Atorvastatin Calcium 80 mg 11/01/18 20:00 11/01/18 20:53 Lipitor - PO [address] Administration Carbamazepine 100 mg 11/01/18 22:00 11/01/18 22:26 Tegretol - PO 100 mg BID [facility] Administration Clopidogrel Bisulfate 75 mg 11/01/18 15:45 11/01/18 15:57 Plavix - PO 75 mg DAILY [facility] Administration Heparin Sodium (Porcine) 5,000 unit 11/01/18 22:00 11/02/18 06:51 Heparin - SQ 5,000 unit TID [facility] Administration Insulin Aspart 1 vial 11/01/18 22:00 11/01/18 21:02 Novolog Vial Sliding Scale - SQ 6 unit ACHS [facility] Administration Protocol Isosorbide Mononitrate 30 mg 11/02/18 10:00 Imdur - PO DAILY [facility] Losartan Potassium 25 mg 11/01/18 15:45 11/01/18 15:57 Cozaar - PO 25 mg DAILY [facility] Administration Metoprolol Succinate 25 mg 11/01/18 15:45 11/01/18 15:57 Toprol Xl - PO 25 mg DAILY [facility] Administration Morphine Sulfate 2 mg 11/01/18 15:39 Morphine Injection - IVPUSH Q6H PRN PAIN LEVEL 6-10 Pancrelipase 1 cap 11/02/18 12:00 Crefroy Kelly 36,000 Units Capsule PO TIDCM [facility] Pantoprazole Sodium 40 mg 11/01/18 15:45 11/01/18 15:57 Protonix - PO 40 mg DAILY [facility] Administration Pregabalin 150 mg 11/01/18 20:00 11/01/18 20:54 Lyrica - PO 150 mg DAILY@2000 [facility] Administration Quetiapine Fumarate 300 mg 11/01/18 22:00 11/01/18 21:03 Seroquel - PO [address] Administration Fluticasone/Salmeterol 1 puff 11/01/18 22:00 11/01/18 22:27 Advair 100mcg/50mcg - IH 1 puff BID [facility] Administration Topiramate 50 mg 11/01/18 22:00 11/02/18 06:51 Topamax - PO 50 mg TID [facility] Administration Home Medications Medication Instructions Recorded Aspirin [ASA -] 81 mg PO DAILY 07/28/18 Alprazolam [Xanax] 2 mg PO DAILY 09/04/18 Atorvastatin Ca [Lipitor] 80 mg PO DAILY 09/04/18 Losartan Potassium 25 mg PO DAILY 09/04/18 Albuterol Sulfate Inhaler - 1 - 2 inh PO QID PRN 11/01/18 [Ventolin Hfa Inhaler -] Carbamazepine 100 mg PO BID 11/01/18 Carvedilol [Coreg] 6.25 mg PO BID 11/01/18 Clopidogrel Bisulfate [Plavix] 75 mg PO DAILY 11/01/18 Doxycycline Hyclate 100 mg PO BID 11/01/18 Escitalopram Oxalate [Lexapro -] 20 mg PO DAILY 11/01/18 Fluticasone Propion/Salmeterol 1 each IH BID 11/01/18 [Wixela 100-50 Inhub] Fluticasone/Salmeterol [Advair 1 each IH QID PRN 11/01/18 250-50 Diskus] Gabapentin 300 mg PO TID 11/01/18 Insulin (Novolog 70/30) [Novolog 20 ml SQ BID 11/01/18 Mix 70/30 Vial] Insulin Detemir [Levemir Flextouch] 44 unit SQ TID 11/01/18 Lipase/Protease/Amylase [Shyla Dr 1 each PO TID 11/01/18 36,000 Units Capsule] Meloxicam 15 mg PO DAILY 11/01/18 Pantoprazole Sodium 40 mg PO DAILY 11/01/18 Pregabalin [Lyrica] 150 mg PO DAILY 11/01/18 Quetiapine Fumarate [Seroquel] 300 mg PO HS 11/01/18 Topiramate [Topamax] 50 mg PO TID 11/01/18 Laboratory Tests 11/02/18 11/02/18 07:55 07:55 Hemoglobin A1c % 11.9 H Triglycerides 221 H Cholesterol 232 H Total LDL Cholesterol 155 H HDL Cholesterol 43 Assessment and plan: Patient is a 53yo female with PMHx of HTN, HLD, T2DM with peripheral neuropathy ,chronic pancreatitis, CAD s/p 2 stents with MONTSERRAT, presented with atypical chest pain and midepigastric pain, as per patient, she has chronic pancreatic pain and is on Oxycodone. # Acute over chronic pancreatitis: GI Dr. Oshea , continue creon and pain meds as needed. # Atypical chest pain , so far enzymes are negative. CArdio , on Plavix and aspirin continue #T2DM ss with coverage # Hx of HTN continue home meds # Hx of HLD, repeat the lipid panel in am, continue aterovastatin # Hx of peripheral neuropathy continue Gabapentin and Lyrica DVT Px: Heparin
[2018-11-02 08:26] LABS: BASO % 0.6 % (0-2.0); EOS % 1.9 % (0-4.5); HEMATOCRIT 43.2 % (32.4-45.2); LYMPH % 44.5 % (8-40); MCH 30.4 pg (25.7-33.7); MCHC 32.3 g/dl (32.0-36.0); MEAN PLT VOLUME 7.8 fl (7.5-11.1); PLATELET COUNT 413 K/MM3 (134-434); RDW 14.9 % (11.6-15.6); WHITE BLOOD COUNT 8.2 K/mm3 (4.0-10.0)
[2018-11-02 09:01] LABS: ALBUMIN 3.3 g/dl (3.4-5.0); ALK PHOS 66 U/L (45-117); ANION GAP 8 MMOL/L (8-16); BILIRUBIN,DIRECT 0.1 mg/dL (0.0-0.2); BILIRUBIN,TOTAL 0.3 mg/dL (0.2-1); BLOOD UREA NITROGEN 15 mg/dL (7-18); CALCIUM 9.7 mg/dL (8.5-10.1); CHLORIDE 104 mmol/L (98-107); CHOLESTEROL 232 mg/dL (50-200); CO2 27 mmol/L (21-32); CREATININE 0.5 mg/dL (0.55-1.3); GLUCOSE,RANDOM 230 mg/dL (74-106); HDL CHOLESTEROL 43 mg/dL (40-60); MAGNESIUM 2.4 mg/dL (1.8-2.4); PHOSPHOROUS 4.4 mg/dL (2.5-4.9); SGOT/AST 7 U/L (15-37); SGPT/ALT 14 U/L (13-61); SODIUM 139 mmol/L (136-145); TOT PROT 6.8 g/dl (6.4-8.2); TRIGLYCERIDES 221 mg/dL (0-150)
--- NOTE | 2018-11-02 09:22 | PN ---
Progress Note (short form) - Note Progress Note: 53 y.o. F on multiple psychiatric meds, claims she was diagnosed with pancreatitis by "my GI in [place]." Does not know exactly how diagnosis was made. Imaging studies done here this year (July, August) do not show any sign of pancreatic disease, nor is there any suggestion of pancreatic disease in her lab reports. Abdominal exam is unremarkable. Suggest: Stool for pancreatic fecal elastase. This test can be performed even while she takes pancreatic enzyme supplements. If the elastase level is normal (>200) then pancreatic enzyme supplements can be discontinued.
[2018-11-02] MEDS: PANTOPRAZOLE 40 MG TABLET (FP) PO SCH (09:37)
[2018-11-02] MEDS: carBAMazepine 100 MG TAB.CHEW PO SCH (09:37)
[2018-11-02] MEDS: CLOPIDOGREL BISULFATE 75 MG TABLET (FP) PO SCH (09:37)
[2018-11-02] MEDS: metoPROLOL SUCCINATE 25 MG TAB.SR.24H (FP) PO SCH (09:37)
[2018-11-02] MEDS: ATORVASTATIN CA 20 MG TABLET (FP) PO SCH (09:40)
[2018-11-02] MEDS: LOSARTAN POTASSIUM 25 MG TABLET PO SCH (09:41)
[2018-11-02] MEDS: FLUTICASONE/SALMETEROL 100 MCG/50 MCG DISKUS IH SCH (09:49)
[2018-11-02] MEDS ORDERED: ALPRAZolam 2 MG TABLET PO SCH (10:00)
[2018-11-02] MEDS ORDERED: ASPIRIN 81 MG CHEWABLE TABLETS PO SCH (10:00)
[2018-11-02] MEDS ORDERED: ISOSORBIDE MONONITRATE 30 MG TAB.SR.24H (FP) PO SCH (10:00)
[2018-11-02 11:04] LABS: PH,URINE 6.5 (5.0-8.0); URINE APPEARANCE CLEAR; URINE BILIRUBIN NEGATIVE (NEGATIVE); URINE COLOR YELLOW; URINE GLUCOSE (UA) 2+ (NEGATIVE); URINE KETONE TRACE (NEGATIVE); URINE LEUK ESTERASE NEGATIVE (NEGATIVE); URINE NITRITE NEGATIVE (NEGATIVE); URINE PROTEIN NEGATIVE (NEGATIVE); URINE UROBILINOGEN 0.2 mg/dL (0.2-1.0)
[2018-11-02] MEDS ORDERED: LIPASE/PROTEASE/AMYLASE 36,000 UNIT CAPSULE PO SCH (12:00)
[2018-11-02] MEDS ORDERED: INSULIN (LEVEMIR) 100 UNITS/ML UNITS SQ SCH (12:45)
[2018-11-02 14:02] VITALS: BP 103/59; PULSE 84; TEMP 98.1
--- NOTE | 2018-11-02 14:44 | DS ---
Physical Exam: SUBJECTIVE: Patient seen and examined OBJECTIVE: PHYSICAL EXAM Initial Vital Signs Temp Pulse Resp BP Pulse Ox 97.6 F 87 18 110/83 100 11/01/18 12:24 11/01/18 12:24 11/01/18 12:24 11/01/18 12:24 11/01/18 12:24 Vital Signs Temperature 98.1 F 11/02/18 14:00 Pulse Rate 84 11/02/18 14:00 Respiratory Rate 16 11/02/18 14:00 Blood Pressure 103/59 L 11/02/18 14:00 O2 Sat by Pulse Oximetry (%) 98 11/02/18 07:00 GENERAL: The patient is awake, alert, and fully oriented, in no acute distress. HEAD: Normal with no signs of trauma. EYES: PERRL, extraocular movements intact, sclera anicteric, conjunctiva clear. ENT: Ears normal, oropharynx clear without exudates, moist mucous membranes. NECK: Trachea midline, full range of motion, supple. LUNGS: Breath sounds equal, clear to auscultation bilaterally, no wheezes, no crackles, no accessory muscle use. HEART: Regular rate and rhythm, S1, S2 without murmur, rub or gallop. ABDOMEN: Soft, nontender, nondistended, normoactive bowel sounds, no guarding, no rebound, no hepatosplenomegaly, no masses. EXTREMITIES: 2+ pulses, warm, well-perfused, no edema. NEUROLOGICAL: Cranial nerves II through XII grossly intact. Normal speech, gait not observed. PSYCH: Normal mood, normal affect. SKIN: Warm, dry, normal turgor, no rashes or lesions noted. LABS Laboratory Results - last 24 hr 11/01/18 11/01/18 11/02/18 18:36 20:53 06:51 WBC RBC Hgb Hct MCV MCH MCHC RDW Plt Count MPV Absolute Neuts (auto) Neutrophils % Lymphocytes % Monocytes % Eosinophils % Basophils % Nucleated RBC % Sodium Potassium Chloride Carbon Dioxide Anion Gap BUN Creatinine Est GFR (CKD-EPI)AfAm Est GFR (CKD-EPI)NonAf POC Glucometer 277 287 212 Random Glucose Hemoglobin A1c % Calcium Phosphorus Magnesium Total Bilirubin Direct Bilirubin AST ALT Alkaline Phosphatase Creatine Kinase Troponin I Total Protein Albumin Triglycerides Cholesterol Total LDL Cholesterol HDL Cholesterol Urine Color Urine Appearance Urine pH Ur Specific [place] Urine Protein Urine Glucose (UA) Urine Ketones Urine Blood Urine Nitrite Urine Bilirubin Urine Urobilinogen Ur Leukocyte Esterase 11/02/18 11/02/18 11/02/18 07:55 07:55 07:55 WBC 8.2 RBC 4.60 Hgb 14.0 Hct 43.2 MCV 94.0 MCH 30.4 MCHC 32.3 RDW 14.9 Plt Count 413 MPV 7.8 Absolute Neuts (auto) 3.9 Neutrophils % 48.0 D Lymphocytes % 44.5 H D Monocytes % 5.0 Eosinophils % 1.9 D Basophils % 0.6 Nucleated RBC % 0 Sodium 139 Potassium 4.0 Chloride 104 Carbon Dioxide 27 Anion Gap 8 BUN 15 Creatinine 0.5 L Est GFR (CKD-EPI)AfAm 128.97 Est GFR (CKD-EPI)NonAf 111.28 POC Glucometer Random Glucose 230 H Hemoglobin A1c % Calcium 9.7 Phosphorus 4.4 Magnesium 2.4 Total Bilirubin 0.3 Direct Bilirubin 0.1 AST 7 L ALT 14 Alkaline Phosphatase 66 Creatine Kinase 27 Troponin I < 0.02 Total Protein 6.8 Albumin 3.3 L Triglycerides 221 H Cholesterol 232 H Total LDL Cholesterol 155 H HDL Cholesterol 43 Urine Color Urine Appearance Urine pH Ur Specific [place] Urine Protein Urine Glucose (UA) Urine Ketones Urine Blood Urine Nitrite Urine Bilirubin Urine Urobilinogen Ur Leukocyte Esterase 11/02/18 11/02/18 11/02/18 07:55 09:45 11:30 WBC RBC Hgb Hct MCV MCH MCHC RDW Plt Count MPV Absolute Neuts (auto) Neutrophils % Lymphocytes % Monocytes % Eosinophils % Basophils % Nucleated RBC % Sodium Potassium Chloride Carbon Dioxide Anion Gap BUN Creatinine Est GFR (CKD-EPI)AfAm Est GFR (CKD-EPI)NonAf POC Glucometer 257 Random Glucose Hemoglobin A1c % 11.9 H Calcium Phosphorus Magnesium Total Bilirubin Direct Bilirubin AST ALT Alkaline Phosphatase Creatine Kinase Troponin I Total Protein Albumin Triglycerides Cholesterol Total LDL Cholesterol HDL Cholesterol Urine Color Yellow Urine Appearance Clear Urine pH 6.5 Ur Specific [place] 1.027 Urine Protein Negative Urine Glucose (UA) 2+ H Urine Ketones Trace H Urine Blood Negative Urine Nitrite Negative Urine Bilirubin Negative Urine Urobilinogen 0.2 Ur Leukocyte Esterase Negative Laboratory Tests 11/02/18 11/02/18 07:55 07:55 Hemoglobin A1c % 11.9 H Triglycerides 221 H Cholesterol 232 H Total LDL Cholesterol 155 H HDL Cholesterol 43 Home Medications Medication Instructions Recorded Aspirin [ASA -] 81 mg PO DAILY 07/28/18 Alprazolam [Xanax] 2 mg PO DAILY 09/04/18 Atorvastatin Ca [Lipitor] 80 mg PO DAILY 09/04/18 Losartan Potassium 25 mg PO DAILY 09/04/18 Albuterol Sulfate Inhaler - 1 - 2 inh PO QID PRN 11/01/18 [Ventolin HFA Inhaler -] Carbamazepine 100 mg PO BID 11/01/18 Carvedilol [Coreg] 6.25 mg PO BID 11/01/18 Clopidogrel Bisulfate [Plavix] 75 mg PO DAILY 11/01/18 Escitalopram Oxalate [Lexapro -] 20 mg PO DAILY 11/01/18 Gabapentin 300 mg PO TID 11/01/18 Lipase/Protease/Amylase [Creon Dr 1 each PO TID 11/01/18 36,000 Units Capsule] Pantoprazole Sodium 40 mg PO DAILY 11/01/18 Pregabalin [Lyrica -] 150 mg PO DAILY 11/01/18 Quetiapine Fumarate [Seroquel] 300 mg PO HS 11/01/18 Topiramate [Topamax] 50 mg PO TID 11/01/18 Fluticasone/Salmeterol [Advair 1 each IH BID 11/02/18 250-50 Diskus] Insulin (Novolog 70/30) [Novolog 20 units SQ DAILY 11/02/18 Mix 70/30 Vial] Insulin Detemir [Levemir Flextouch] 30 unit SQ BID 11/02/18 Isosorbide Mononitrate [Imdur -] 30 mg PO DAILY tab.sr.24h 11/02/18 Metoprolol Succinate [Toprol XL -] 25 mg PO DAILY tab.sr.24h 11/02/18 Current Medications Generic Name Dose Route Start Last Admin Trade Name Freq PRN Reason Stop Dose Admin Albuterol/Ipratropium 1 amp 11/01/18 15:39 Duoneb - NEB Q6H PRN SHORTNESS OF BREATH Alprazolam 2 mg 11/02/18 10:00 11/02/18 09:49 Xanax - PO Not Given DAILY LANE Aspirin 81 mg 11/02/18 10:00 11/02/18 09:40 Asa - PO [address] Administration Atorvastatin Calcium 80 mg 11/01/18 20:00 11/02/18 09:40 Lipitor - PO Not Given DAILY [facility] Carbamazepine 100 mg 11/01/18 22:00 11/02/18 09:37 Tegretol - PO [address] Administration Clopidogrel Bisulfate 75 mg 11/01/18 15:45 11/02/18 09:37 Plavix - PO [address] Administration Heparin Sodium (Porcine) 5,000 unit 11/01/18 22:00 11/02/18 14:26 Heparin - SQ 5,[address] Administration Insulin Aspart 1 vial 11/01/18 22:00 11/02/18 11:32 Novolog Vial Sliding Scale - SQ [address] Administration Protocol Insulin Detemir 20 units 11/02/18 12:45 11/02/18 14:26 Levemir Vial SQ 20 units BID@0700,2200 LANE Administration Isosorbide Mononitrate 30 mg 11/02/18 10:00 11/02/18 09:40 Imdur - PO Not Given DAILY [facility] Losartan Potassium 25 mg 11/01/18 15:45 11/02/18 09:41 Cozaar - PO Not Given DAILY [facility] Metoprolol Succinate 25 mg 11/01/18 15:45 11/02/18 09:37 Toprol Xl - PO 25 mg DAILY [facility] Administration Morphine Sulfate 2 mg 11/01/18 15:39 Morphine Injection - IVPUSH Q6H PRN PAIN LEVEL 6-10 Pancrelipase 1 cap 11/02/18 12:00 11/02/18 11:[address] 36,000 Units Capsule PO [address] Administration Pantoprazole Sodium 40 mg 11/01/18 15:45 11/02/18 09:37 Protonix - PO 40 mg DAILY [facility] Administration Pregabalin 150 mg 11/01/18 20:00 11/01/18 20:54 Lyrica - PO 150 mg DAILY@2000 LANE Administration Quetiapine Fumarate 300 mg 11/01/18 22:00 11/01/18 21:03 Seroquel - PO [address] Administration Fluticasone/Salmeterol 1 puff 11/01/18 22:00 11/02/18 09:49 Advair 100mcg/50mcg - IH [address] Administration Topiramate 50 mg 11/01/18 22:00 11/02/18 14:27 Topamax - PO [address] Administration Home meds were verified with the pharmacy HOSPITAL COURSE: Date of Admission:11/01/18 Date of Discharge: 11/02/18 Patient is a 53yo female with PMHx of HTN, HLD, T2DM with peripheral neuropathy ,chronic pancreatitis, CAD s/p 2 stents with MONTSERRAT, presented with atypical chest pain and midepigastric pain, as per patient, she has chronic pancreatic pain and is on Oxycodone. # Acute over chronic pancreatitis: No further pain , continue home meds, follow with GI Dr. Oshea , continue creon and pain meds as needed. # Atypical chest pain so far cardiac enzymes are negative s/p PTCA with MONTSERRAT x2 on Plavix/asa continue follow with within a week period. #T2DM ss with coverage, continue home regimen and will see in a week period for further care, as patient is non compliant with her meds. # Hx of HTN continue home meds # Hx of HLD, repeat the lipid panel in am, continue aterovastatin 80mg continue # Hx of peripheral neuropathy continue Gabapentin and Lyrica follow with primary/gi/rukhsanaa/cardio within a week period Minutes to complete discharge: 32 Discharge Summary Reason For Visit: SOB,CHEST PAIN Current Active Problems Chest pain (Acute) Shortness of breath (Acute) Condition: Stable - Instructions Diet, Activity, Other Instructions: Please important to have low fat, diabetic diet at all the times, weight loss will improve your symptoms. Referrals: Lan Garcia MD [Staff Physician] - 1 Week Abdullahi Oshea MD [Staff Physician] - 1 Week Katy Rodgers MD [Staff Physician] - 1 Week Disposition: HOME - Home Medications Comprehensive Discharge Medication List: Ambulatory Orders Aspirin [ASA -] 81 mg PO DAILY 07/28/18 Alprazolam [Xanax] 2 mg PO DAILY 09/04/18 Atorvastatin Ca [Lipitor] 80 mg PO DAILY 09/04/18 Losartan Potassium 25 mg PO DAILY 09/04/18 Albuterol Sulfate Inhaler - [Ventolin Hfa Inhaler -] 1 - 2 inh PO QID PRN Carbamazepine 100 mg PO BID 11/01/18 Carvedilol [Coreg] 6.25 mg PO BID 11/01/18 Clopidogrel Bisulfate [Plavix] 75 mg PO DAILY 11/01/18 Doxycycline Hyclate 100 mg PO BID 11/01/18 Escitalopram Oxalate [Lexapro -] 20 mg PO DAILY 11/01/18 Fluticasone Propion/Salmeterol [Wixela 100-50 Inhub] 1 each IH BID 11/01/18 Fluticasone/Salmeterol [Advair 250-50 Diskus] 1 each IH QID PRN 11/01/18 Gabapentin 300 mg PO TID 11/01/18 Insulin (Novolog 70/30) [Novolog Mix 70/30 Vial] 20 ml SQ BID 11/01/18 Insulin Detemir [Levemir Flextouch] 44 unit SQ TID 11/01/18 Lipase/Protease/Amylase [Creon Dr 36,000 Units Capsule] 1 each PO TID 11/01/18 Meloxicam 15 mg PO DAILY 11/01/18 Pantoprazole Sodium 40 mg PO DAILY 11/01/18 Pregabalin [Lyrica] 150 mg PO DAILY 11/01/18 Quetiapine Fumarate [Seroquel] 300 mg PO HS 11/01/18 Topiramate [Topamax] 50 mg PO TID 11/01/18 This patient is new to me today: No Emergency Visit: Yes ED Registration Date: 11/01/18 Care time: The patient presented to the Emergency Department on the above date and was hospitalized for further evaluation of their emergent condition. Critical Care patient: No - Discharge Referral Referred to [facility] No
== END 2018-11-02 16:41 | disposition home or self-care (01) ==
LOC: JER 12:03 → JERBED 14:10 → J4S 16:30
PROVIDERS: ADMIT Internal Medicine; ATTEND Internal Medicine
PROC: 3E013VG Introduction of Insulin into Subcutaneous Tissue, Percutaneous Approach (ICD-10-PCS; principal; 2018-11-01)
PROC: 3E013GC Introduction of Other Therapeutic Substance into Subcutaneous Tissue, Percutaneous Approach (ICD-10-PCS; 2018-11-01)
PROC: 3E0F7GC Introduction of Other Therapeutic Substance into Respiratory Tract, Via Natural or Artificial Opening (ICD-10-PCS; 2018-11-01)
DX: R07.89 Other chest pain (principal); K86.1 Other chronic pancreatitis; M94.0 Chondrocostal junction syndrome [Tietze]; R06.02 Shortness of breath; R00.2 Palpitations; I25.10 Atherosclerotic heart disease of native coronary artery without angina pectoris; I25.2 Old myocardial infarction; I10 Essential (primary) hypertension; E11.65 Type 2 diabetes mellitus with hyperglycemia; E78.5 Hyperlipidemia, unspecified; G47.33 Obstructive sleep apnea (adult) (pediatric); G62.9 Polyneuropathy, unspecified; G40.909 Epilepsy, unspecified, not intractable, without status epilepticus; J45.909 Unspecified asthma, uncomplicated; F17.210 Nicotine dependence, cigarettes, uncomplicated; Z79.4 Long term (current) use of insulin; Z79.82 Long term (current) use of aspirin; Z95.5 Presence of coronary angioplasty implant and graft; Z88.0 Allergy status to penicillin; Z99.89 Dependence on other enabling machines and devices
CPT/HCPCS: 36415; 71045-TC-FY; 76700-TC; 80053; 80061; 81003; 82248; 82550; 82962; 83036; 83690; 83721; 83735; 84100; 84484; 85025; 85610; 85730; 87086; 93005; 93010; 94640; 94761; 96372; 99285-25; G0378; J1644

== ENCOUNTER 2018-12-24 11:07 | Emergency (ER) | payer BC, OTHER ==
[2018-12-24 11:28] VITALS: BP 147/91; PULSE 90; TEMP 99.2; BMI 33.8
[2018-12-24] MEDS ORDERED: ACETAMINOPHEN 1000 MG/100 ML VIAL (NON FORMULARY) IVPB ONE (11:56)
--- NOTE | 2018-12-24 11:59 | PDOC ---
History of Present Illness - General Chief Complaint: Pain, Acute Stated Complaint: ABD PAIN Time Seen by Provider: 12/24/18 11:40 History Source: Patient, Family Exam Limitations: No Limitations - History of Present Illness Initial Comments: 12/24/18 11:50 Ms. Richard is a 53F with PMH of pancreatitis, DM, HTN, neuropathy, and cardiac stents 2/2 myocardial infarction 1 month ago, presenting with chronic RLQ abdominal pain that worsened yesterday. Reports that she has been vomiting NBNB 6-7 per day, with decreased appetite, and cough. Worse with movement and eating. She reports that she has had chronic pancreatitis for the past 5 years and is awaiting surgical management. She has been seen for this in the ED several times for this and has been admitted during those visits. She also reports several mechanical falls over the past month and associated left leg pain. Describes the pain as constant and throughout the leg. Reports that she no longer has her electric wheelchair and has been falling because of that. Reports that she uses a walker but does not feel as stable. 12/24/18 12:00 12/24/18 12:23 12/24/18 12:38 Past History - Past Medical History Allergies/Adverse Reactions: Allergies Allergy/AdvReac Type Severity Reaction Status Date / Time Penicillins Allergy Severe Verified 12/24/18 14:36 Home Medications: Ambulatory Orders Aspirin [ASA -] 81 mg PO DAILY 07/28/18 Alprazolam [Xanax] 2 mg PO DAILY 09/04/18 Atorvastatin Ca [Lipitor] 80 mg PO DAILY 09/04/18 Losartan Potassium 25 mg PO DAILY 09/04/18 Albuterol Sulfate Inhaler - [Ventolin HFA Inhaler -] 1 - 2 inh PO QID PRN Carbamazepine 100 mg PO BID 11/01/18 Clopidogrel Bisulfate [Plavix] 75 mg PO DAILY 11/01/18 Escitalopram Oxalate [Lexapro -] 20 mg PO DAILY 11/01/18 Gabapentin 300 mg PO TID 11/01/18 Lipase/Protease/Amylase [Shyla Kelly 36,000 Units Capsule] 1 each PO TID 11/01/18 Pantoprazole Sodium 40 mg PO DAILY 11/01/18 Pregabalin [Lyrica -] 150 mg PO DAILY 11/01/18 Quetiapine Fumarate [Seroquel] 300 mg PO HS 11/01/18 Topiramate [Topamax] 50 mg PO TID 11/01/18 Fluticasone/Salmeterol [Advair 250-50 Diskus] 1 each IH BID 11/02/18 Insulin (Levemir) [Levemir Vial] 30 units SQ BID@0700,2200 units 11/02/18 Insulin Detemir [Levemir Flextouch] 30 unit SQ BID 11/02/18 Isosorbide Mononitrate [Imdur -] 30 mg PO DAILY tab.sr.24h 11/02/18 Metoprolol Succinate [Toprol XL -] 25 mg PO DAILY #30 tab.sr.24h 11/02/18 Asthma: Yes Cardiac Disorders: Yes CVA: No COPD: Yes Diabetes: Yes GI Disorders: Yes (pancreatitis) HTN: Yes Hypercholesterolemia: Yes Liver Disease: No Seizures: Yes - Surgical History Cardiac Surgery: Yes (stents) - Suicide/Smoking/Psychosocial Hx Smoking History: Current every day smoker Have you smoked in the past 12 months: Yes Number of Cigarettes Smoked Daily: 2 Cigars Per Day: 2 Information on smoking cessation initiated: No 'Breaking Loose' booklet given: 11/01/18 Hx Alcohol Use: No Drug/Substance Use Hx: No Substance Use Type: None Hx Substance Use Treatment: No Review of Systems - Review of Systems Able to Perform ROS?: Yes Is the patient limited Kazakh proficient: No Constitutional: Yes: See HPI, Diaphoresis, Loss of Appetite, Weakness. No: Chills, Fever HEENTM: No: Symptoms Reported Respiratory: Yes: Cough. No: Shortness of Breath Cardiac (ROS): No: Chest Pain, Edema, Palpitations ABD/GI: Yes: See HPI, Nausea, Poor Appetite, Poor Fluid Intake, Vomiting. No: Abd. Pain w/ defecation, Blood Streaked Bowels, Constipated, Diarrhea, Difficulty Swallowing : Yes: Flank Pain. No: Burning, Dysuria, Discharge, Frequency, Hematuria, Pain Musculoskeletal: No: Symptoms Reported Integumentary: No: Bruising, Change in Color, Rash Neurological: Yes: Paresthesia, Weakness, Unsteady Gait. No: Headache Endocrine: No: Symptoms Reported Hematologic/Lymphatic: No: Symptoms Reported *Physical Exam - Vital Signs Last Vital Signs Temp Pulse Resp BP Pulse Ox 99.2 F 90 22 H 147/91 100 12/24/18 11:25 12/24/18 11:25 12/24/18 11:25 12/24/18 11:25 12/24/18 11:25 - Physical Exam General Appearance: Yes: Moderate Distress, Obese HEENT: positive: EOMI, BRIAN Neck: positive: Tender, Trachea midline Respiratory/Chest: positive: Lungs Clear, Normal Breath Sounds. negative: Chest Tender, Respiratory Distress Cardiovascular: positive: Regular Rhythm, Regular Rate Vascular Pulses: Dorsalis-Pedis (R): 2+, Doralis-Pedis (L): 2+ Gastrointestinal/Abdominal: positive: Tender (right lower quadrant and right flank ), Soft, Protuberent, Guarding. 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 Also reports several mechanical falls over the past month. Differential diagnosis includes chronic pancreatitis exacerbation vs less likely pyelonephritis or kidney stone. We will obtain CBC, CMP, lipase, UA, and urine culture. Further work up pending these lab results. 12/24/18 12:30 Patient refusing IV, lab draw, and tylenol, states that only morphine works for her pain. 12/24/18 13:40 We discussed the case with Dr. Salma Leon, the patient's PCP, who shares concerns about the patient's narcotic use and recommends that the patient only receive narcotics if she is shown to have an acute episode of pancreatitis at present. We offered the patient the option of blood work, IV tylenol, and a CT scan to rule out acute pancreatitis. The patient refused this care and left without signing AMA forms. 12/24/18 14:39 *DC/Admit/Observation/Transfer Diagnosis at time of Disposition: Abdominal pain Qualifiers: Abdominal location: right lower quadrant Qualified Code(s): R10.31 - Right lower quadrant pain - Discharge Dispostion Disposition: ELOPED Condition at time of disposition: Stable - Referrals - Patient Instructions - Post Discharge Activity
[2018-12-24 12:33] LABS: PH,URINE 8.5 (5.0-8.0); URINE APPEARANCE CLEAR; URINE BILIRUBIN NEGATIVE (NEGATIVE); URINE COLOR YELLOW; URINE GLUCOSE (UA) 3+ (NEGATIVE); URINE KETONE NEGATIVE (NEGATIVE); URINE LEUK ESTERASE NEGATIVE (NEGATIVE); URINE NITRITE NEGATIVE (NEGATIVE); URINE PROTEIN NEGATIVE (NEGATIVE); URINE UROBILINOGEN 0.2 mg/dL (0.2-1.0)
--- NOTE | 2018-12-24 13:34 | PDOC ---
Documentation entered by Garfield Dunn SCRIBE, acting as scribe for Jaja Beltran MD. Jaja Beltran MD: This documentation has been prepared by the Shaun payne Joel, SCRIBE, under my direction and personally reviewed by me in its entirety. I confirm that the documentation accurately reflects all work, treatment, procedures, and medical decision making performed by me. Attending Attestation - Resident Resident Name: EddieTony - HPI HPI: 12/24/18 12:50 The patient is a 53 year old female with a significant PMH of chronic pancreatitis, HTN, DM, recent DE (s/p stents x2) who presents to the emergency department with acute on chronic RLQ abdominal pain that worsened yesterday. She describes her abdominal pain as localized in RLQ with radiation to right flank with associated vomiting and loose, non-bloody stools. As per note, the patient has been admitted multiple times for chronic pancreatitis. The patient denies fevers and chills. The patient denies chest pain, shortness of breath, headache and dizziness. Denies dysuria, frequency, urgency and hematuria. Allergies: Penicillins Past surgical history: Cardiac stents x2. Social history: Current everyday smoker. No reported alcohol or drug use. - Physicial Exam PE: 12/24/18 13:21 Patient is alert and in no acute distress. Abdomen is soft, non tender and non distended, without guarding or rebound. - Medical Decision Making 12/24/18 13:26 Pt presents to the ED complaining of diffuse abdominal pain that she states is similar to her chronic pancretitis. Labs and imaging have always been negative at this institution. Patient takes chronic oxycodone and states that she was told by her GI that she would be on oxycodone "for the rest of my life". She does not see pain management. Patient became upset in the ED and requested morphine before any work up was complete. Refused IV tylenol. Requested that we call her PCP. Plan is to check labs and CT abdomen pelvis to rule out pancreatitis, diverticulitis, biliary disease or other intraabodminal pathology. Patient is currently refusing care, but requested that we discuss her case with her PCP. Will call patient's PCP and discuss case. 12/24/18 13:39 Case discussed with patient's PMD Polyakova, who agrees that the patient is likely drug seeking. Dr. Leon suggested that the patient be informed that she would not be given narcotics unless we had documented evidence of acute pancreatitis. When I went to discuss this with the patient, she became angry and stated that she "did not believe you talked to Dr. Leon". I told the patient that we are happy to care for her, and that that care would involve an IV line, IV tylenol for pain control, and a CT scan. At this point, she has been offered care by two nurses, Dr. Morgan, Dr. Wallace and myself. I have also informed her that if she does not want to initiate care in the Ed, she is welcome to leave AMA. She understands the risks of undiagnosed intraabodminal pathology, including bowel perforation, pancreatitic necrosis and .
--- NOTE | 2018-12-24 15:48 | EKG ---
Test Reason : Blood Pressure : / mmHG Vent. Rate : 089 BPM Atrial Rate : 089 BPM P-R Int : 144 ms QRS Dur : 084 ms QT Int : 370 ms P-R-T Axes : 070 034 037 degrees QTc Int : 450 ms NORMAL SINUS RHYTHM POSSIBLE LEFT ATRIAL ENLARGEMENT BORDERLINE ECG WHEN COMPARED WITH ECG OF 01-NOV-2018 12:11, NO SIGNIFICANT CHANGE WAS FOUND Confirmed by MD NOE, ERICH ([id number]) on 12/24/2018 3:48:12 PM Referred By: Confirmed By:ERICH LIU MD
== END 2018-12-24 13:30 | disposition left against medical advice (07) ==
LOC: JER 11:07
DX: R10.31 Right lower quadrant pain (principal); I25.10 Atherosclerotic heart disease of native coronary artery without angina pectoris; I10 Essential (primary) hypertension; Z95.5 Presence of coronary angioplasty implant and graft; I25.2 Old myocardial infarction; E11.9 Type 2 diabetes mellitus without complications; Z79.4 Long term (current) use of insulin; M79.605 Pain in left leg; Z91.81 History of falling
CPT/HCPCS: 81003; 87086; 93005; 93010; 99282-25

== ENCOUNTER 2019-01-03 04:48 | Observation (INO) | payer BC, OTHER ==
[2019-01-03 05:07] VITALS: BMI 33.5
--- NOTE | 2019-01-03 05:30 | PDOC ---
Attending Attestation - Resident Resident Name: Ren Burnett - ED Attending Attestation I have performed the following: I have examined & evaluated the patient, The case was reviewed & discussed with the resident, I agree w/resident's findings & plan, Exceptions are as noted - HPI HPI: 01/03/19 05:52 53F pmh DM, HTN, HLD, [place] s/p stents x2 with chest pain, sob, chest tightness for about a day. - Physicial Exam PE: 01/03/19 07:13 Agree with exam as documented by resident - Medical Decision Making 01/03/19 05:58 EKG non-ischemic concerning chest pain story in high risk patient f/u labs, serial troponins f/u cxr likely admission for acs eval
[2019-01-03 05:40] LABS: BASO % 1.3 % (0-2.0); EOS % 1.6 % (0-4.5); HEMATOCRIT 37.2 % (32.4-45.2); HEMOGLOBIN 12.7 GM/dL (10.7-15.3); LYMPH % 45.8 % (8-40); MCH 31.4 pg (25.7-33.7); MCHC 34.1 g/dl (32.0-36.0); MEAN PLT VOLUME 8.3 fl (7.5-11.1); MONO % 5.6 % (3.8-10.2); NEUT % 45.7 % (42.8-82.8); PLATELET COUNT 371 K/MM3 (134-434); RBC 4.04 M/mm3 (3.60-5.2); WHITE BLOOD COUNT 12.5 K/mm3 (4.0-10.0)
[2019-01-03 05:51] LABS: INR 1.02 (0.83-1.09)
--- NOTE | 2019-01-03 05:59 | PDOC ---
History of Present Illness - General Chief Complaint: Chest Pain Stated Complaint: S.O.B. Time Seen by Provider: 01/03/19 05:27 History Source: Patient Exam Limitations: No Limitations - History of Present Illness Initial Comments: 01/03/19 05:54 53 yo F h/o ID s/p 2 stents (September 2018), DM, LENIN, HTN/HLD p/w 1 day of palpitations, SOB, and chest tightness. [place] palpitations, went for a walk which did not relieve. Came in due to difficulty breathing. Chest tightness - substernal worse with breathing. Pt states s/s remind her of when she had ID. Endorses diaphoresis. Endorses a week of N/V and loss of appetite. No recent surgeries, no OCPs, no h/o VTE. Denies f/c, cough, rhinorrhea, diarrhea. PMH: ID s/p 2 stents (September 2018), DM, LENIN, HTN, HLD, peripheral neuropathy, chronic pancreatitis, seizures, anxiety Past abdominal surgery PCN allergy Past History - Past Medical History Allergies/Adverse Reactions: Allergies Allergy/AdvReac Type Severity Reaction Status Date / Time Penicillins Allergy Severe Verified 01/03/19 05:08 Home Medications: Ambulatory Orders Aspirin [ASA -] 81 mg PO DAILY 07/28/18 Alprazolam [Xanax] 2 mg PO DAILY 09/04/18 Atorvastatin Ca [Lipitor] 80 mg PO DAILY 09/04/18 Losartan Potassium 25 mg PO DAILY 09/04/18 Albuterol Sulfate Inhaler - [Ventolin HFA Inhaler -] 1 - 2 inh PO QID PRN Carbamazepine 100 mg PO BID 11/01/18 Clopidogrel Bisulfate [Plavix] 75 mg PO DAILY 11/01/18 Escitalopram Oxalate [Lexapro -] 20 mg PO DAILY 11/01/18 Gabapentin 300 mg PO TID 11/01/18 Lipase/Protease/Amylase [Shyla Kelly 36,000 Units Capsule] 1 each PO TID 11/01/18 Pantoprazole Sodium 40 mg PO DAILY 11/01/18 Pregabalin [Lyrica -] 150 mg PO DAILY 11/01/18 Quetiapine Fumarate [Seroquel] 300 mg PO HS 11/01/18 Topiramate [Topamax] 50 mg PO TID 11/01/18 Fluticasone/Salmeterol [Advair 250-50 Diskus] 1 each IH BID 11/02/18 Insulin (Levemir) [Levemir Vial] 30 units SQ BID@0700,2200 units 11/02/18 Insulin Detemir [Levemir Flextouch] 30 unit SQ BID 11/02/18 Isosorbide Mononitrate [Imdur -] 30 mg PO DAILY tab.sr.24h 11/02/18 Metoprolol Succinate [Toprol XL -] 25 mg PO DAILY #30 tab.sr.24h 11/02/18 Asthma: Yes Cardiac Disorders: Yes CVA: No COPD: Yes Diabetes: Yes GI Disorders: Yes (pancreatitis) HTN: Yes Hypercholesterolemia: Yes Liver Disease: No Seizures: Yes - Surgical History Cardiac Surgery: Yes (stents) - Suicide/Smoking/Psychosocial Hx Smoking History: Current every day smoker Have you smoked in the past 12 months: No Number of Cigarettes Smoked Daily: 1 Cigars Per Day: 2 Information on smoking cessation initiated: No 'Breaking Loose' booklet given: 11/01/18 Hx Alcohol Use: No Drug/Substance Use Hx: No Substance Use Type: None Hx Substance Use Treatment: No Review of Systems - Review of Systems Able to Perform ROS?: Yes Is the patient limited Spanish proficient: No Constitutional: Yes: Diaphoresis. No: Chills, Fever Respiratory: Yes: Shortness of Breath. No: Cough Cardiac (ROS): Yes: Palpitations, Chest Tightness. No: Chest Pain ABD/GI: Yes: Nausea, Poor Appetite, Vomiting. No: Diarrhea *Physical Exam - Vital Signs Last Vital Signs Temp Pulse Resp BP Pulse Ox 98.3 F 87 18 125/92 100 01/03/19 05:04 01/03/19 05:04 01/03/19 05:04 01/03/19 05:04 01/03/19 05:04 - Physical Exam Comments: 01/03/19 05:59 GEN: resting in bed comfortably, NAD HEENT: NC/AT, EOMI CV: S1/S2, RRR, no m/r/g, no JVD, no LE edema LUNG: CTAB, no wheezes GI: soft, nt, nd, +BS Heart Score/ECG Review - History History: Moderately suspicious - Electrocardiogram EKG: Normal - Age Age: 45-65 - Risk Factors Based on the list above the patient has:: >/=3 risk factors or Hx atherosclerotic disease - Troponin Troponin: </= normal limit - Score Heart Score - Total: 4 ED Treatment Course - LABORATORY CBC & Chemistry Diagram: 01/03/19 05:31 01/03/19 05:31 - ADDITIONAL ORDERS Additional order review: Laboratory Results 01/03/19 05:31 PT with INR 12.00 INR 1.02 Medical Decision Making - Medical Decision Making 01/03/19 06:00 53 yo F h/o ID s/p 2 stents (september 2018), DM, HTN, HLD, anxiety presents with palpitations, chest tightness, and SOB for a day. HEART SCORE = 4 PERC = 0, PE unlikely DDx - ACS, PE, costrocondritis - CBC, CMP, TROP, BNP - EKG - CXR Hyperglycemia - IV NS bolus Dispo: admit - telemetry signed out to day team 01/03/19 07:15 *DC/Admit/Observation/Transfer Diagnosis at time of Disposition: Chest pain Qualifiers: Chest pain type: chest pain on breathing Qualified Code(s): R07.1 - Chest pain on breathing - Referrals - Patient Instructions - Post Discharge Activity
[2019-01-03 06:04] LABS: ALBUMIN 3.3 g/dl (3.4-5.0); ALK PHOS 68 U/L (45-117); ANION GAP 7 MMOL/L (8-16); BILIRUBIN,TOTAL 0.3 mg/dL (0.2-1); BLOOD UREA NITROGEN 9.6 mg/dL (7-18); CALCIUM 8.9 mg/dL (8.5-10.1); CHLORIDE 102 mmol/L (98-107); CO2 29 mmol/L (21-32); CREATININE 0.7 mg/dL (0.55-1.3); GLUCOSE,RANDOM 330 mg/dL (74-106); N-TERMINAL BNP 114.9 pg/ml (5-125); POTASSIUM 4.1 mmol/L (3.5-5.1); SGOT/AST 10 U/L (15-37); SGPT/ALT 13 U/L (13-61); SODIUM 139 mmol/L (136-145); TOT PROT 6.8 g/dl (6.4-8.2)
[2019-01-03] MEDS ORDERED: SODIUM CHLORIDE 0.9% 500 ML INFUS.BAG IV ONE (06:20)
--- NOTE | 2019-01-03 07:23 | PDOC ---
*Physical Exam - Vital Signs Last Vital Signs Temp Pulse Resp BP Pulse Ox 98.3 F 87 18 125/92 100 01/03/19 05:04 01/03/19 05:04 01/03/19 05:04 01/03/19 05:04 01/03/19 05:04 - Physical Exam General Appearance: Yes: Nourished, Appropriately Dressed. No: Apparent Distress HEENT: positive: EOMI, BRIAN, Normal Voice, Hearing Grossly Normal. negative: Pale Conjunctivae, Nasal Congestion, Rhinorrhea Respiratory/Chest: positive: Lungs Clear, Normal Breath Sounds. negative: Chest Tender, Respiratory Distress, Labored Respiration, Crackles, Rales, Rhonchi, Stridor, Wheezing Cardiovascular: positive: Regular Rhythm, Regular Rate, S1, S2. negative: Edema , Murmur Gastrointestinal/Abdominal: positive: Normal Bowel Sounds, Flat, Soft. negative : Tender, Organomegaly, Distended, Guarding, Rebound Integumentary: positive: Normal Color Neurologic: positive: Fully Oriented, Alert, Normal Mood/Affect, Normal Response ED Treatment Course - LABORATORY CBC & Chemistry Diagram: 01/03/19 05:31 01/03/19 05:31 - ADDITIONAL ORDERS Additional order review: Laboratory Results 01/03/19 01/03/19 05:31 05:31 PT with INR 12.00 INR 1.02 Sodium 139 Potassium 4.1 Chloride 102 Carbon Dioxide 29 Anion Gap 7 L BUN 9.6 Creatinine 0.7 Est GFR (CKD-EPI)AfAm 115.45 Est GFR (CKD-EPI)NonAf 99.62 Random Glucose 330 H* Calcium 8.9 Magnesium 2.0 Total Bilirubin 0.3 AST 10 L ALT 13 Alkaline Phosphatase 68 Creatine Kinase 52 Troponin I < 0.02 B-Natriuretic Peptide 114.9 Total Protein 6.8 Albumin 3.3 L 01/03/19 05:31 RBC 4.04 MCV 92.0 MCHC 34.1 RDW 15.0 MPV 8.3 Neutrophils % 45.7 Lymphocytes % 45.8 H Monocytes % 5.6 Eosinophils % 1.6 Basophils % 1.3 - Medications Given in the ED: ED Medications Discontinued Medications Generic Name Dose Route Start Last Admin Trade Name Freq PRN Reason Stop Dose Admin Sodium Chloride 1,000 ml 01/03/19 06:20 01/03/19 06:49 Normal Saline - IV 01/03/19 06:21 1,000 ml ONCE ONE Administration Medical Decision Making - Medical Decision Making 01/03/19 07:[address] Ren Burnett Chest tightness unchanged Complains of vaginal discharge and irritation for last few days. Started treatment 2 days ago. Ordered UA, Ucx Inpatient team contact exercise planner Dr Lan Garcia for recs. Admitted to Dr Tracey Paredes tele/obs, signed out to Catherine Hdez for ACS workup. *DC/Admit/Observation/Transfer Diagnosis at time of Disposition: Chest pain Qualifiers: Chest pain type: unspecified Qualified Code(s): R07.9 - Chest pain, unspecified - Referrals - Patient Instructions - Post Discharge Activity
--- NOTE | 2019-01-03 08:45 | HP ---
Admitting History and Physical - Admission Chief Complaint: chest pain and shortness of breath History of Present Illness: Patient is a 53 year old female with a significant past medical history of AR s/ p 2 stents (September 2018), diabetes, LENIN, hypertension, chronic pancreatits, seizures and HLD. She presents to the ED with on day of palpitations, shortness of breath and chest tightness. When at home she felt some palpitations and then had difficulty breathing. During exam, she still had substernal chest tightness that felt like heaviness on her chest. The pain in her chest is worse with breathing. She states this chest pain is similar to chest tightness she had when she had AR in September 2018. Cardiology has been consulted, but she reports she saw her pourer buggy ladle last week. History Source: Patient Limitations to Obtaining History: No Limitations - Past Medical History Cardiovascular: Yes: CAD, HTN Pulmonary: Yes: Asthma, COPD Gastrointestinal: Yes: Pancreatitis Endocrine: Yes: Diabetes Mellitus - Smoking History Smoking history: Current every day smoker Have you smoked in the past 12 months: Yes Aproximately how many cigarettes per day: 1 - Alcohol/Substance Use Hx Alcohol Use: No - Social History History of Recent Travel: No Home Medications - Allergies Allergies/Adverse Reactions: Allergies Allergy/AdvReac Type Severity Reaction Status Date / Time Penicillins Allergy Severe Verified 01/03/19 05:08 - Home Medications Home Medications: Ambulatory Orders Aspirin [ASA -] 81 mg PO DAILY 07/28/18 Alprazolam [Xanax] 2 mg PO DAILY 09/04/18 Atorvastatin Ca [Lipitor] 80 mg PO DAILY 09/04/18 Losartan Potassium 25 mg PO DAILY 09/04/18 Albuterol Sulfate Inhaler - [Ventolin HFA Inhaler -] 1 - 2 inh PO QID PRN Carbamazepine 100 mg PO BID 11/01/18 Clopidogrel Bisulfate [Plavix] 75 mg PO DAILY 11/01/18 Escitalopram Oxalate [Lexapro -] 20 mg PO DAILY 11/01/18 Gabapentin 300 mg PO TID 11/01/18 Lipase/Protease/Amylase [Shyla Kelly 36,000 Units Capsule] 1 each PO TID 11/01/18 Pantoprazole Sodium 40 mg PO DAILY 11/01/18 Pregabalin [Lyrica -] 150 mg PO DAILY 11/01/18 Quetiapine Fumarate [Seroquel] 300 mg PO HS 11/01/18 Topiramate [Topamax] 50 mg PO TID 11/01/18 Fluticasone/Salmeterol [Advair 250-50 Diskus] 1 each IH BID 11/02/18 Insulin (Levemir) [Levemir Vial] 30 units SQ BID@0700,2200 units 11/02/18 Insulin Detemir [Levemir Flextouch] 30 unit SQ BID 11/02/18 Isosorbide Mononitrate [Imdur -] 30 mg PO DAILY tab.sr.24h 11/02/18 Metoprolol Succinate [Toprol XL -] 25 mg PO DAILY #30 tab.sr.24h 11/02/18 Review of Systems - Review of Systems Constitutional: reports: No Symptoms Eyes: reports: No Symptoms HENT: reports: No Symptoms Neck: reports: No Symptoms Cardiovascular: reports: Chest Pain, Shortness of Breath Respiratory: reports: No Symptoms Gastrointestinal: reports: No Symptoms Physical Examination Vital Signs: Vital Signs Temperature 98.2 F 01/03/19 07:20 Pulse Rate 81 01/03/19 07:20 Respiratory Rate 16 01/03/19 07:20 Blood Pressure 138/84 01/03/19 07:20 O2 Sat by Pulse Oximetry (%) 99 01/03/19 07:20 Constitutional: Yes: Well Nourished, No Distress, Calm Eyes: Yes: WNL HENT: Yes: WNL Neck: Yes: WNL Cardiovascular: Yes: WNL, Regular Rate and Rhythm Respiratory: Yes: WNL, Regular, Diminished Gastrointestinal: Yes: WNL, Normal Bowel Sounds, Soft Extremities: Yes: WNL Edema: No Peripheral Pulses WNL: Yes Integumentary: Yes: WNL Neurological: Yes: WNL, Alert, Oriented ...Motor Strength: WNL Labs: CBC, BMP 01/03/19 05:31 01/03/19 05:31 Imaging - Results Chest X-ray: Image Reviewed EKG: Image Reviewed Problem List - Problems (1) Chest pain Assessment/Plan: Troponins negative x 2, will continue to trend Monitor on tele x 24 hours EKG without ischemia Recent cardiac stents and has been on Plavix On Toprol Will monitor on tele x 24 hours further workup per cardiology Code(s): R07.9 - CHEST PAIN, UNSPECIFIED Qualifiers: Chest pain type: unspecified Qualified Code(s): R07.9 - Chest pain, unspecified (2) Diabetes mellitus Assessment/Plan: uncontrolled DM monitor BGMS ac/hs Code(s): E11.9 - TYPE 2 DIABETES MELLITUS WITHOUT COMPLICATIONS (3) Shortness of breath Assessment/Plan: toleraring room air has hx of COPD and asthma, continue home inhalers chest xray negative Code(s): R06.02 - SHORTNESS OF BREATH
[2019-01-03 10:57] LABS: URINE APPEARANCE CLEAR; URINE BILIRUBIN NEGATIVE (NEGATIVE); URINE COLOR YELLOW; URINE GLUCOSE (UA) 2+ (NEGATIVE); URINE KETONE NEGATIVE (NEGATIVE); URINE LEUK ESTERASE NEGATIVE (NEGATIVE); URINE NITRITE NEGATIVE (NEGATIVE); URINE PROTEIN NEGATIVE (NEGATIVE); URINE UROBILINOGEN 0.2 mg/dL (0.2-1.0)
[2019-01-03] MEDS ORDERED: INSULIN SLIDING SCALE (NOVOLOG) 1 VIAL SQ SCH (11:00)
[2019-01-03] MEDS ORDERED: metoPROLOL SUCCINATE 25 MG TAB.SR.24H (FP) PO SCH (11:00)
[2019-01-03] MEDS ORDERED: LOSARTAN POTASSIUM 25 MG TABLET PO SCH (11:00)
[2019-01-03] MEDS ORDERED: INSULIN (NOVOLOG) ASPART 100 UNITS/ML 10ML VIAL ONE ×2 (13:16→17:36)
[2019-01-03] MEDS ORDERED: ASPIRIN COATED 81 MG TABLET.EC ONE (13:16)
[2019-01-03] MEDS: ASPIRIN 81 MG CHEWABLE TABLETS PO SCH (13:20)
[2019-01-03] MEDS: ESCITALOPRAM OXALATE 20 MG TABLET (FP) PO SCH (13:20)
[2019-01-03] MEDS: CLOPIDOGREL BISULFATE 75 MG TABLET (FP) PO SCH (13:20)
[2019-01-03] MEDS: carBAMazepine 100 MG TAB.CHEW PO SCH ×2 (13:20→21:52)
--- NOTE | 2019-01-03 13:28 | EKG ---
Test Reason : Blood Pressure : / mmHG Vent. Rate : 079 BPM Atrial Rate : 079 BPM P-R Int : 160 ms QRS Dur : 086 ms QT Int : 386 ms P-R-T Axes : 072 038 031 degrees QTc Int : 442 ms NORMAL SINUS RHYTHM POSSIBLE LEFT ATRIAL ENLARGEMENT WHEN COMPARED WITH ECG OF 24-DEC-2018 12:13, NO SIGNIFICANT CHANGE WAS FOUND Confirmed by SARAH SUMNER MD ([id number]) on 01/03/2019 1:28:01 PM Referred By: Confirmed By:SARAH SUMNER MD
[2019-01-03] MEDS ORDERED: GABAPENTIN 300 MG CAPSULE (FP) PO SCH (14:00)
--- NOTE | 2019-01-03 15:21 | CON.CARD ---
Consult Consult Specialty:: Cardiology Reason for Consultation:: Chest pain - History of Present Illness History of Present Illness: 53-year-old woman with a past medical history of hypertension, hyperlipidemia, diabetes mellitus type 2 with reported peripheral neuropathy previously was wheelchair bound currently ambulates with a 1 block limitation to exercise tolerance due to pain, patient reported history of coronary artery disease status post reported PA approximately 6 years ago treated at a hospital in [place], LENIN, seizures, asthma, chronic pancreatitis, chronic pain syndrome, asthma, obesity. She has had multiple admissions for pancreatitis. [facility] with dyspnea and found to have an NSTEMI. She underwent cardiac cath showing significant two-vessel CAD with a 99% proximal left circumflex and a 99% proximal RCA with other minimal luminal irregularities in the left main and LAD. She underwent MONTSERRAT x2 to the proximal circumflex and proximal RCA. She was discharged home on 2018. She also underwent a Holter monitor that showed frequent PVCs that corresponded with her symptoms of palpitations. She has a chronic history of intermittent chest pain. Came to ER with reproducible epigastric and mid sternal chest pain and SOB which although has largely improved, is still present. ECG and CE are negative. - History Source History Provided By: Patient, Medical Record - Past Medical History Cardio/Vascular: Yes: CAD, HTN Pulmonary: Yes: Asthma, COPD Gastrointestinal: Yes: Pancreatitis Endocrine: Yes: Diabetes Mellitus - Alcohol/Substance Use Hx Alcohol Use: No - Smoking History Smoking history: Current every day smoker Have you smoked in the past 12 months: No Aproximately how many cigarettes per day: 1 - Social History History of Recent Travel: No Home Medications - Allergies Allergies/Adverse Reactions: Allergies Allergy/AdvReac Type Severity Reaction Status Date / Time Penicillins Allergy Severe Verified 01/03/19 05:08 - Home Medications Home Medications: Ambulatory Orders Aspirin [ASA -] 81 mg PO DAILY 07/28/18 Alprazolam [Xanax] 2 mg PO DAILY 09/04/18 Atorvastatin Ca [Lipitor] 80 mg PO DAILY 09/04/18 Losartan Potassium 25 mg PO DAILY 09/04/18 Albuterol Sulfate Inhaler - [Ventolin HFA Inhaler -] 1 - 2 inh PO QID PRN Carbamazepine 100 mg PO BID 11/01/18 Clopidogrel Bisulfate [Plavix] 75 mg PO DAILY 11/01/18 Escitalopram Oxalate [Lexapro -] 20 mg PO DAILY 11/01/18 Gabapentin 300 mg PO TID 11/01/18 Lipase/Protease/Amylase [Creon Dr 36,000 Units Capsule] 1 each PO TID 11/01/18 Pantoprazole Sodium 40 mg PO DAILY 11/01/18 Pregabalin [Lyrica -] 150 mg PO DAILY 11/01/18 Quetiapine Fumarate [Seroquel] 300 mg PO HS 11/01/18 Topiramate [Topamax] 50 mg PO TID 11/01/18 Fluticasone/Salmeterol [Advair 250-50 Diskus] 1 each IH BID 11/02/18 Insulin (Levemir) [Levemir Vial] 30 units SQ BID@0700,2200 units 11/02/18 Insulin Detemir [Levemir Flextouch] 30 unit SQ BID 11/02/18 Isosorbide Mononitrate [Imdur -] 30 mg PO DAILY tab.sr.24h 11/02/18 Metoprolol Succinate [Toprol XL -] 25 mg PO DAILY #30 tab.sr.24h 11/02/18 Review of Systems - Review of Systems Constitutional: reports: No Symptoms Eyes: reports: No Symptoms HENT: reports: No Symptoms Neck: reports: No Symptoms Cardiovascular: reports: Chest Pain, Shortness of Breath Respiratory: reports: No Symptoms Gastrointestinal: reports: No Symptoms Genitourinary: reports: No Symptoms Vital Signs: Vital Signs Temperature 98.4 F 01/03/19 11:14 Pulse Rate 81 01/03/19 11:14 Respiratory Rate 20 01/03/19 11:14 Blood Pressure 149/80 01/03/19 11:14 O2 Sat by Pulse Oximetry (%) 99 01/03/19 11:14 Constitutional: Yes: Well Nourished, No Distress Eyes: Yes: Conjunctiva Clear, EOM Intact HENT: Yes: Atraumatic, Normocephalic Neck: Yes: Supple, Trachea Midline Respiratory: Yes: Regular, CTA Bilaterally Gastrointestinal: Yes: Normal Bowel Sounds Cardiovascular: Yes: Regular Rate and Rhythm (reporducible chest discomfort.) Heart Sounds: Yes: S1, S2 Murmur: No: Systolic Murmur, Diastolic Murmur Edema: No - Other Data Labs, Other Data: CBC, BMP 01/03/19 05:31 01/03/19 05:31 INR, PTT INR 1.02 (0.83-1.09) 01/03/19 05:31 Troponin, BNP 01/03/19 01/03/19 05:31 09:24 Troponin I < 0.02 < 0.02 B-Natriuretic Peptide 114.9 Troponin, BNP 01/03/19 01/03/19 05:31 09:24 Troponin I < 0.02 < 0.02 B-Natriuretic Peptide 114.[address] T changes. Problem List - Problems (1) Chest pain Code(s): R07.9 - CHEST PAIN, UNSPECIFIED Qualifiers: Chest pain type: unspecified Qualified Code(s): R07.9 - Chest pain, unspecified Assessment/Plan Ho CAD sp recent PA 09/2018 2 vessel disease sp PCI and small vessel disease with chronic chest pain. Now with atypical CP. No ECG changes and CE is negative. She has chronic MARX was thought to be related to COPD. Has ho palpitations and VPCs managed with beta blockers Toprol 100mg qd. Her Chest pain is atypical and reproducible. Some pain may reflect small vessle disease but I do not suspect ACS. Continue with DAPT, Imdur and statin. Will see as needed.
[2019-01-03] MEDS: TOPIRAMATE 25 MG TABLET (FP) PO SCH ×2 (15:30→21:52)
[2019-01-03] MEDS ORDERED: ALBUTEROL SO4 8 GM HFA INHALER IH PRN (16:25)
[2019-01-03] MEDS ORDERED: ACETAMINOPHEN 325 MG TABLET (FP) PO PRN (17:34)
[2019-01-03] MEDS: LIPASE/PROTEASE/AMYLASE 36,000 UNIT CAPSULE PO SCH (18:55)
[2019-01-03] MEDS: INSULIN SLIDING SCALE (NOVOLOG) 1 VIAL SQ SCH (21:53)
[2019-01-03] MEDS ORDERED: QUEtiapine FUMARATE 300 MG TABLET PO SCH (22:00)
[2019-01-03] MEDS ORDERED: ATORVASTATIN CA 80 MG TABLET (FP) PO SCH (22:00)
[2019-01-03] MEDS ORDERED: INSULIN (LEVEMIR) 100 UNITS/ML UNITS SQ SCH (22:00)
[2019-01-03] MEDS ORDERED: MICONAZOLE NITRATE 200 MG VAGINAL SUPPOSITORY PV SCH (22:00)
[2019-01-03] MEDS: BUDESONIDE/FORMETEROL FUMARATE 80/4.5 mcg INHALER IH SCH (22:43)
[2019-01-04] MEDS: TOPIRAMATE 25 MG TABLET (FP) PO SCH ×2 (05:11→15:02)
[2019-01-04] MEDS: INSULIN SLIDING SCALE (NOVOLOG) 1 VIAL SQ SCH ×2 (06:02→11:24)
[2019-01-04 06:46] LABS: BASO % 0.6 % (0-2.0); EOS % 1.7 % (0-4.5); HEMATOCRIT 41.1 % (32.4-45.2); HEMOGLOBIN 13.6 GM/dL (10.7-15.3); LYMPH % 44.2 % (8-40); MCH 30.8 pg (25.7-33.7); MCHC 33.1 g/dl (32.0-36.0); MEAN CELL VOLUME 92.9 fl (80-96); MEAN PLT VOLUME 8.5 fl (7.5-11.1); MONO % 5.4 % (3.8-10.2); NEUT % 48.1 % (42.8-82.8); PLATELET COUNT 364 K/MM3 (134-434); RBC 4.43 M/mm3 (3.60-5.2); RDW 14.8 % (11.6-15.6); WHITE BLOOD COUNT 9.8 K/mm3 (4.0-10.0)
[2019-01-04 07:31] LABS: ALBUMIN 3.3 g/dl (3.4-5.0); ALK PHOS 63 U/L (45-117); ANION GAP 7 MMOL/L (8-16); BILIRUBIN,TOTAL 0.4 mg/dL (0.2-1); BLOOD UREA NITROGEN 6.8 mg/dL (7-18); CALCIUM 9.6 mg/dL (8.5-10.1); CHLORIDE 108 mmol/L (98-107); CHOLESTEROL 294 mg/dL (50-200); CO2 27 mmol/L (21-32); CREATININE 0.5 mg/dL (0.55-1.3); GLUCOSE,RANDOM 136 mg/dL (74-106); HDL CHOLESTEROL 40 mg/dL (40-60); POTASSIUM 3.7 mmol/L (3.5-5.1); SGOT/AST 6 U/L (15-37); SGPT/ALT 9 U/L (13-61); SODIUM 141 mmol/L (136-145); TOT PROT 6.6 g/dl (6.4-8.2); TRIGLYCERIDES 213 mg/dL (0-150)
[2019-01-04] MEDS ORDERED: PT OWN MED DRAWER 7, Y5N ONE ×2 (08:04→10:53)
--- NOTE | 2019-01-04 09:29 | EKG ---
Test Reason : Blood Pressure : / mmHG Vent. Rate : 081 BPM Atrial Rate : 081 BPM P-R Int : 146 ms QRS Dur : 084 ms QT Int : 390 ms P-R-T Axes : 085 047 015 degrees QTc Int : 453 ms NORMAL SINUS RHYTHM NORMAL ECG WHEN COMPARED WITH ECG OF 03-JAN-2019 05:47, NO SIGNIFICANT CHANGE WAS FOUND Confirmed by ABGIAIL PHAN, PINEDA ([id number]) on 01/04/2019 9:29:45 AM Referred By: Richard PONCE Confirmed By:PINEDA HAYES MD
--- NOTE | 2019-01-04 09:44 | PN ---
Progress Note, Physician Chief Complaint: having headaches, having chest pain that is re producible on palpation of chest states she is compliant with her home medications, including the statins, will start on lopid bid History of Present Illness: Patient is a 53 year old female with a significant past medical history of GA s/ p 2 stents (September 2018), diabetes, LENIN, hypertension, chronic pancreatits, seizures and HLD. She presents to the ED with on day of palpitations, shortness of breath and chest tightness. When at home she felt some palpitations and then had difficulty breathing. During exam, she still had substernal chest tightness that felt like heaviness on her chest. The pain in her chest is worse with breathing. She states this chest pain is similar to chest tightness she had when she had GA in September 2018. Cardiology has been consulted, but she reports she saw her core sucker last week. had chest pain again this morning, her troponins were re-drawn x 1, previous troponins negative x 3 no changes seen on ekg PVCs on cardiac sonographer c/o of headache.to get tylenol discharge once cleared by cardiology - Current Medication List Current Medications: Active Medications Acetaminophen (Tylenol -) 650 mg PO Q6H PRN PRN Reason: PAIN LEVEL 6-10 Last Admin: 01/03/19 17:41 Dose: 650 mg Albuterol Sulfate (Ventolin Hfa Inhaler -) 1 - 2 puff IH QID PRN PRN Reason: SHORTNESS OF BREATH Aspirin (Asa -) 81 mg PO DAILY [facility] Last Admin: 01/03/19 13:20 Dose: 81 mg Atorvastatin Calcium (Lipitor -) 80 mg PO HS [facility] Last Admin: 01/03/19 21:52 Dose: 80 mg Budesonide/Formoterol Fumarate (Symbicort 80/4.5mcg -) 2 puff IH BID [facility] Last Admin: 01/03/19 22:43 Dose: 2 puff Carbamazepine (Tegretol -) 100 mg PO BID [facility] Last Admin: 01/03/19 21:52 Dose: 100 mg Clopidogrel Bisulfate (Plavix -) 75 mg PO DAILY [facility] Last Admin: 01/03/19 13:20 Dose: 75 mg Escitalopram Oxalate (Lexapro -) 20 mg PO DAILY [facility] Last Admin: 01/03/19 13:20 Dose: 20 mg Insulin Aspart (Novolog Vial Sliding Scale -) 1 vial SQ ACHS [facility]; Protocol Last Admin: 01/04/19 06:02 Dose: Not Given Insulin Detemir (Levemir Vial) 10 units SQ HS [facility] Last Admin: 01/03/19 21:52 Dose: 10 units Losartan Potassium (Cozaar -) 25 mg PO DAILY [facility] Metoprolol Succinate (Toprol Xl -) 25 mg PO DAILY [facility] Miconazole Nitrate (Miconazole 3) 200 mg PV HS [facility] Stop: 01/05/19 22:01 Last Admin: 01/03/19 22:43 Dose: 200 mg Pancrelipase (Creon Dr 36,000 Units Capsule) 1 cap PO TIDCM [facility] Last Admin: 01/03/19 18:55 Dose: 1 cap Pantoprazole Sodium (Protonix -) 40 mg PO DAILY [facility] Pregabalin (Lyrica -) 150 mg PO DAILY [facility] Topiramate (Topamax -) 50 mg PO TID [facility] Last Admin: 01/04/19 05:11 Dose: 50 mg - Objective Vital Signs: Vital Signs Temperature 98.1 F 01/04/19 05:00 Pulse Rate 88 01/04/19 05:00 Respiratory Rate 20 01/04/19 05:00 Blood Pressure 160/89 01/04/19 05:00 O2 Sat by Pulse Oximetry (%) 96 01/04/19 05:00 Labs: CBC, BMP 01/04/19 05:20 01/04/19 05:20 INR, PTT INR 1.02 (0.83-1.09) 01/03/19 05:31 Problem List - Problems (1) Chest pain Code(s): R07.9 - CHEST PAIN, UNSPECIFIED Qualifiers: Chest pain type: unspecified Qualified Code(s): R07.9 - Chest pain, unspecified (2) Diabetes mellitus Code(s): E11.9 - TYPE 2 DIABETES MELLITUS WITHOUT COMPLICATIONS (3) Shortness of breath Code(s): R06.02 - SHORTNESS OF BREATH
[2019-01-04] MEDS ORDERED: PANTOPRAZOLE 40 MG TABLET (FP) PO SCH (10:00)
[2019-01-04] MEDS ORDERED: GEMFIBROZIL 600 MG TABLET (FP) PO SCH (10:00)
[2019-01-04] MEDS ORDERED: PREGABALIN 75 MG CAPSULE PO SCH (10:00)
[2019-01-04] MEDS ORDERED: metoPROLOL SUCCINATE 25 MG TAB.SR.24H (FP) PO SCH (10:00)
[2019-01-04] MEDS ORDERED: LOSARTAN POTASSIUM 25 MG TABLET PO SCH (10:00)
[2019-01-04] MEDS ORDERED: ESCITALOPRAM OXALATE 10 MG TABLET (FP) ONE (10:52)
[2019-01-04] MEDS: LIPASE/PROTEASE/AMYLASE 36,000 UNIT CAPSULE PO SCH ×2 (10:55→14:44)
[2019-01-04] MEDS: ASPIRIN 81 MG CHEWABLE TABLETS PO SCH (10:55)
[2019-01-04] MEDS: ESCITALOPRAM OXALATE 20 MG TABLET (FP) PO SCH (10:57)
[2019-01-04] MEDS: carBAMazepine 100 MG TAB.CHEW PO SCH (10:58)
[2019-01-04] MEDS: CLOPIDOGREL BISULFATE 75 MG TABLET (FP) PO SCH (11:04)
[2019-01-04] MEDS: BUDESONIDE/FORMETEROL FUMARATE 80/4.5 mcg INHALER IH SCH (13:19)
[2019-01-04 14:31] VITALS: BP 151/90; PULSE 77; TEMP 98.6
--- NOTE | 2019-01-04 15:55 | DS ---
Physical Exam: SUBJECTIVE: Patient seen and examined at the bedside. She reported chest pain this morning but now chest pain has subsided. Importance of following up discussed and she is in agreement to call Dr. Garcia on Sunday for an appointment. Advised her to return to the ED if she has chest a recurrence of chest pain. OBJECTIVE: Vital Signs Period Temp Pulse Resp BP Sys/Kang Pulse Ox Last 24 Hr 98.1 F-98.6 F 77-95 16-20 143-174/84-103 96-100 PHYSICAL EXAM GENERAL: The patient is awake, alert, and fully oriented, in no acute distress. HEAD: Normal with no signs of trauma. EYES: PERRL, extraocular movements intact, sclera anicteric, conjunctiva clear. ENT: Ears normal, nares patent, oropharynx clear without exudates, moist mucous membranes. NECK: Trachea midline, full range of motion, supple. LUNGS: Breath sounds equal, clear to auscultation bilaterally HEART: Regular rate and rhythm, S1, S2 without murmur, rub or gallop. ABDOMEN: Soft, nontender, nondistended, normoactive bowel sounds, no guarding, no rebound, no hepatosplenomegaly, no masses. EXTREMITIES: 2+ pulses, warm, well-perfused, no edema. NEUROLOGICAL: Cranial nerves II through XII grossly intact. Normal speech, gait not observed. PSYCH: Normal mood, normal affect. SKIN: Warm, dry, normal turgor, no rashes or lesions noted. LABS Laboratory Results - last 24 hr 01/04/19 01/04/19 05:20 05:20 WBC 9.8 RBC 4.43 Hgb 13.6 Hct 41.1 MCV 92.9 MCH 30.8 MCHC 33.1 RDW 14.8 Plt Count 364 MPV 8.5 Absolute Neuts (auto) 4.7 Neutrophils % 48.1 Lymphocytes % 44.2 H Monocytes % 5.4 Eosinophils % 1.7 Basophils % 0.6 Nucleated RBC % 0 Sodium 141 Potassium 3.7 Chloride 108 H Carbon Dioxide 27 Anion Gap 7 L BUN 6.8 L Creatinine 0.5 L Est GFR (CKD-EPI)AfAm 128.97 Est GFR (CKD-EPI)NonAf 111.28 Random Glucose 136 H Calcium 9.6 Total Bilirubin 0.4 AST 6 L ALT 9 L Alkaline Phosphatase 63 Troponin I < 0.02 Total Protein 6.6 Albumin 3.3 L Triglycerides 213 H Cholesterol 294 H Total LDL Cholesterol 211 H HDL Cholesterol 40 HOSPITAL COURSE: Date of Admission:01/03/19 Date of Discharge: 01/04/19 Patient is a 53 year old female with a significant past medical history of [place] s/ p 2 stents (September 2018), diabetes, LENIN, hypertension, chronic pancreatits, seizures and HLD. She presented to the ED with one day of palpitations, shortness of breath and chest tightness. When at home she felt some palpitations and then had difficulty breathing. Cardiology has been consulted, and cleared patient for discharge home. Her troponins are negative x 4 and her EKG without any changes. She agrees to call her education technician on Sunday for further workup and a follow up appointment. HOSPITAL COURSE BY PROBLEM LIST: Minutes to complete discharge: 60 Discharge Summary Reason For Visit: CHEST PAIN Current Active Problems Chest pain (Acute) Condition: Improved - Instructions Diet, Activity, Other Instructions: Mrs Richard You were admitted for chest pain and your cardiac workup has been negative. However, it is important that you follow up with Dr. Garcia for cardiac workup. During your hospitalization, you were also noted to have a urinary tract infection and we will be sending you home with antibiotics. here are our recommendations: Chest pain. Continue your cardiac medications and call Dr. Garcia office for follow up appointment. It is important that you do so. Urinary tract infection. Continue the antibiotics, as they were called into your pharmacy. Continue for a total of 5 days as directed. High Cholesterol. Your cholesterol was elevated. You are on Lipitor 80mg daily. We have added Lopid 600mg TWICE per day. Diet and exercise and no smoking are very important to help decrease cholesterol levels. What is Lopid? Lopid is a medication that can help lower high cholesterol and triglyceride levels in the blood. Please have your blood work repeated with your primary care doctor. Thank you for allowing us to care for you Karen Hdez [facility] Referrals: Lan Garcia MD [Staff Physician] - (please call Dr. Garcia on Sunday for a follow up appointment. ) Disposition: HOME - Home Medications Comprehensive Discharge Medication List: Ambulatory Orders Aspirin [ASA -] 81 mg PO DAILY 07/28/18 Alprazolam [Xanax] 2 mg PO DAILY 09/04/18 Atorvastatin Ca [Lipitor] 80 mg PO DAILY 09/04/18 Losartan Potassium 25 mg PO DAILY 09/04/18 Albuterol Sulfate Inhaler - [Ventolin HFA Inhaler -] 1 - 2 inh PO QID PRN Carbamazepine 100 mg PO BID 11/01/18 Clopidogrel Bisulfate [Plavix] 75 mg PO DAILY 11/01/18 Escitalopram Oxalate [Lexapro -] 20 mg PO DAILY 11/01/18 Gabapentin 300 mg PO TID 11/01/18 Lipase/Protease/Amylase [Shyla Dr 36,000 Units Capsule] 1 each PO TID 11/01/18 Pantoprazole Sodium 40 mg PO DAILY 11/01/18 Pregabalin [Lyrica -] 150 mg PO DAILY 11/01/18 Quetiapine Fumarate [Seroquel] 300 mg PO HS 11/01/18 Topiramate [Topamax] 50 mg PO TID 11/01/18 Insulin (Levemir) [Levemir Vial] 30 units SQ BID@0700,2200 units 11/02/18 Insulin Detemir [Levemir Flextouch] 30 unit SQ BID 11/02/18 Isosorbide Mononitrate [Imdur -] 30 mg PO DAILY tab.sr.24h 11/02/18 Metoprolol Succinate [Toprol XL -] 25 mg PO DAILY #30 tab.sr.24h 11/02/18 Oxycodone-Acetaminophen 10-325 1 tablet PO QID PRN 01/03/19 Fluticasone/Salmeterol [Advair 250-50 Diskus] 1 each IH BID #1 blst.w.dev Gemfibrozil [Lopid -] 600 mg PO BID@0700,1630 #60 tablet 01/04/19 Nitrofurantoin Macrocrystal [Macrodantin -] 50 mg PO Q6HPO #20 capsule 01/04/19 Problem List - Problems (1) Chest pain Assessment/Plan: Chest pain resolved. Troponins negative x 4. No events on telemonitoring. EKG without ischemia She has had a recent cardiac stenting and has been on Plavix. On Toprol 25mg She is agreeing to call her education technician for an appointment No further chest pain or shortness of breath Stable oxygen saturations on room air Code(s): R07.9 - CHEST PAIN, UNSPECIFIED Qualifiers: Chest pain type: unspecified Qualified Code(s): R07.9 - Chest pain, unspecified (2) Diabetes mellitus Assessment/Plan: continue home medications and follow up with PCP Code(s): E11.9 - TYPE 2 DIABETES MELLITUS WITHOUT COMPLICATIONS (3) Shortness of breath Assessment/Plan: toleraring room air has hx of COPD and asthma, continue home inhalers chest xray negative Code(s): R06.02 - SHORTNESS OF BREATH (4) Hyperlipemia Assessment/Plan: On Lipitor 80mg daily however has elevated lipid panel. She reports compliance with her medications. Will add Lopid 600mg BID Encourage diet and excercise Repeat lipid panel as an outpatient Code(s): E78.5 - HYPERLIPIDEMIA, UNSPECIFIED This patient is new to me today: No Emergency Visit: Yes ED Registration Date: 01/03/19 Care time: The patient presented to the Emergency Department on the above date and was hospitalized for further evaluation of their emergent condition. Critical Care patient: No - Discharge Referral Referred to [facility] No
[2019-01-04] MEDS ORDERED: NITROFURANTOIN MACROCRYSTAL 50 MG CAPSULE (FP) PO SCH (18:00)
== END 2019-01-04 17:11 | disposition home or self-care (01) ==
LOC: JER 04:48 → JERBED 07:58 → J4S 21:22
PROVIDERS: ADMIT Internal Medicine; ATTEND Nurse Practitioner Family
PROC: 3E0337Z Introduction of Electrolytic and Water Balance Substance into Peripheral Vein, Percutaneous Approach (ICD-10-PCS; principal; 2019-01-03)
PROC: 3E033VG Introduction of Insulin into Peripheral Vein, Percutaneous Approach (ICD-10-PCS; 2019-01-03)
PROC: 3E0F7GC Introduction of Other Therapeutic Substance into Respiratory Tract, Via Natural or Artificial Opening (ICD-10-PCS; 2019-01-03)
DX: R07.89 Other chest pain (principal); R06.02 Shortness of breath; I10 Essential (primary) hypertension; E78.5 Hyperlipidemia, unspecified; E11.9 Type 2 diabetes mellitus without complications; I25.10 Atherosclerotic heart disease of native coronary artery without angina pectoris; I25.2 Old myocardial infarction; G47.33 Obstructive sleep apnea (adult) (pediatric); G62.9 Polyneuropathy, unspecified; G40.909 Epilepsy, unspecified, not intractable, without status epilepticus; F41.9 Anxiety disorder, unspecified; J44.9 Chronic obstructive pulmonary disease, unspecified; F17.210 Nicotine dependence, cigarettes, uncomplicated; Z79.82 Long term (current) use of aspirin; Z79.4 Long term (current) use of insulin; Z95.5 Presence of coronary angioplasty implant and graft; Z88.0 Allergy status to penicillin
CPT/HCPCS: 36415; 71045-TC-FY; 80053; 80061; 81003; 82550; 82962; 83036; 83721; 83735; 83880; 84484; 85025; 85610; 87086; 87186; 93005; 93010; 94640; 96372; 99285-25; G0378

== ENCOUNTER 2019-01-17 10:05 | Inpatient (IN) | payer BC, OTHER | END 2019-01-20 12:35 | disposition home or self-care (01) | LOC: JER 10:05 → JERBED 17:08 → J8W 21:02 ==

== ENCOUNTER 2019-02-09 18:52 | Inpatient (IN) | payer BC, OTHER ==
[2019-02-09 18:59] VITALS: BMI 30.5
--- NOTE | 2019-02-09 19:12 | PDOC ---
History of Present Illness - General Chief Complaint: Chest Pain Stated Complaint: CHEST PAIN & VOMITING Time Seen by Provider: 02/09/19 19:08 - History of Present Illness Initial Comments: 02/09/19 19:10 Source: Patient and partner at bedside HPI: 53yo woman h/o [place] s/p 2 stents (September 2018), DM, pancreatitis, LENIN, HTN/HLD , anxiety (on xanax) p/w 2 days of palpitations, chest pain, 1 day of SOB, 5 days of nausea and vomiting. Endorses 5 days of nausea and vomiting, nonbloody, nonbilious, food comes up - reports that she has been unable to keep any food or liquids down at all. Starting 2 days ago endorses palpitations or "flutters" and pulsating "knocking" 7/10 waves of sternal / right chest pain - non- exertional. Endorses shortness of breath for one day which "feels like an asthma attack" which "is the same as my last heart attack." Pt states her symptoms remind her of when she had MD. Endorses diaphoresis. Endorses a week of N/V and loss of appetite. No recent surgeries, no OCPs, no h/o VTE. Also endorses chills, cough, rhinorrhea. Denies constipation or diarrhea, endorses diffuse dull abdominal pain with defecation - regular BMs. 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, current smoker Past History - Travel Traveled outside of the country in the last 30 days: No Close contact w/someone who was outside of country & ill: No - Past Medical History Allergies/Adverse Reactions: Allergies Allergy/AdvReac Type Severity Reaction Status Date / Time Penicillins Allergy Severe Verified 02/09/19 18:54 Home Medications: Ambulatory Orders Aspirin [ASA -] 81 mg PO DAILY 07/28/18 Alprazolam [Xanax] 2 mg PO DAILY 09/04/18 Atorvastatin Ca [Lipitor] 80 mg PO DAILY 09/04/18 Losartan Potassium 25 mg PO DAILY 09/04/18 Albuterol Sulfate Inhaler - [Ventolin HFA Inhaler -] 1 - 2 inh PO QID PRN Carbamazepine 100 mg PO BID 11/01/18 Clopidogrel Bisulfate [Plavix] 75 mg PO DAILY 11/01/18 Escitalopram Oxalate [Lexapro -] 20 mg PO DAILY 11/01/18 Gabapentin 300 mg PO TID 11/01/18 Lipase/Protease/Amylase [Creon Dr 36,000 Units Capsule] 1 each PO TID 11/01/18 Pantoprazole Sodium 40 mg PO DAILY 11/01/18 Pregabalin [Lyrica -] 150 mg PO DAILY 11/01/18 Quetiapine Fumarate [Seroquel] 300 mg PO HS 11/01/18 Topiramate [Topamax] 50 mg PO TID 11/01/18 Insulin Detemir [Levemir Flextouch] 30 unit SQ BID 11/02/18 Isosorbide Mononitrate [Imdur -] 30 mg PO DAILY tab.sr.24h 11/02/18 Metoprolol Succinate [Toprol XL -] 25 mg PO DAILY #30 tab.sr.24h 11/02/18 Oxycodone-Acetaminophen 10-325 1 tablet PO QID PRN 01/03/19 Fluticasone/Salmeterol [Advair 250-50 Diskus] 1 each IH BID #1 blst.w.dev Gemfibrozil [Lopid -] 600 mg PO BID@0700,1630 #60 tablet 01/04/19 Nitrofurantoin Macrocrystal [Macrodantin -] 50 mg PO Q6HPO #20 capsule 01/04/19 Ondansetron [Ondansetron Odt] 8 mg PO TID #20 tab.rapdis 01/20/19 Insulin (Levemir) [Levemir Vial] 24 unit SQ ONCE #1 vial 02/09/19 Insulin (Novolog) [Novolog -] 8 units SQ ONCE #1 vial 02/09/19 Asthma: Yes Cardiac Disorders: Yes (mi stents 10/11) CVA: No COPD: Yes Diabetes: Yes GI Disorders: Yes (pancreatitis) HTN: Yes Hypercholesterolemia: Yes Liver Disease: No Seizures: Yes - Surgical History Cardiac Surgery: Yes (stents) - Suicide/Smoking/Psychosocial Hx Smoking History: Former smoker Have you smoked in the past 12 months: Yes Number of Cigarettes Smoked Daily: 1 Cigars Per Day: 2 Information on smoking cessation initiated: No 'Breaking Loose' booklet given: 01/03/19 Hx Alcohol Use: No Drug/Substance Use Hx: No Substance Use Type: None Hx Substance Use Treatment: No Review of Systems - Review of Systems Able to Perform ROS?: Yes Is the patient limited Ukrainian proficient: No Constitutional: Yes: Symptoms Reported, See HPI HEENTM: Yes: Symptoms Reported, Nose Congestion Respiratory: Yes: Symptoms reported, Cough, Shortness of Breath. No: Wheezing, Productive cough Cardiac (ROS): Yes: Symptoms Reported, See HPI, Chest Pain, Irregular Heart Rate , Palpitations. No: Edema, Lightheadedness, Syncope, Chest Tightness ABD/GI: Yes: Symptoms Reported, Abd. Pain w/ defecation, Nausea, Poor Fluid Intake, Vomiting. No: Abdominal Distended, Constipated, Diarrhea, Poor Appetite , Rectal Bleeding, Tarry Stools : No: Symptoms Reported Musculoskeletal: Yes: Symptoms Reported, See HPI, Back Pain. No: Muscle Weakness, Neck Pain Integumentary: No: Symptoms Reported, Change in Color, Pruritus Neurological: No: Symptoms reported, Headache, Numbness, Seizure, Tingling, Weakness Psychiatric: Yes: Anxiety. No: Depression Endocrine: No: Excessive Sweating, Flushing, Increased Thirst, Increased Urine Hematologic/Lymphatic: No: Anemia, Blood Clots, Easy Bruising All Other Systems: Reviewed and Negative *Physical Exam - Vital Signs Last Vital Signs Temp Pulse Resp BP Pulse Ox 99.0 F 102 H 18 106/86 99 02/09/19 18:54 02/09/19 18:54 02/09/19 18:54 02/09/19 18:54 02/09/19 18:54 - Physical Exam Comments: 02/09/19 20:45 Vitals reviewed, notable for mild tachycardia, afebrile Gen: wdwn woman, appears stated age, no acute distress, appears anxious HEENT: normal morphologies, no rhinorrhea, MMM, treachea midline, EOMI, edentulous CV: NSR at 80bmp, nl s1/s2, no murmurs rubs or gallops, no bruits appreciated Pulm: CTABL, normal work of breathing, no wheezes / rales / rhonchi, no cough during encounter Abd: soft, non-distended, tender in epigastrium and LUQ, no pain at McBurnie's point, no rebound, negative Georges's Ext: WWP, 2+ capillary refill, no clubbing / cyanosis / edema Pulses: 2+ radial and PT Neuro: alert and oriented, cranial nerves grossly intact, MAEE Heart Score/ECG Review - History History: Moderately suspicious - Electrocardiogram EKG: Normal - Age Age: 45-65 - Risk Factors Based on the list above the patient has:: >/=3 risk factors or Hx atherosclerotic disease - Troponin Troponin: </= normal limit - Score Heart Score - Total: 4 ED Treatment Course - LABORATORY CBC & Chemistry Diagram: 02/09/19 20:11 02/09/19 20:11 Medical Decision Making - Medical Decision Making 02/09/19 19:11 53yo woman h/o MD s/p 2 stents (September 2018), DM, pancreatitis, LENIN, HTN/HLD p/w 2 days of palpitations, chest pain, 1 day of SOB, 5 days of nausea and vomiting. HEART score 4. Patient with concerning history of recent MD, pancreatitis. Exam largely unremarkable with vitals notable for mild tachycardia , some abdominal tenderness without clear localization, no mcburnie point tenderness, no georges sign. R/o ACS in woman with n/v, chest pain, SOB with significant recent cardiac history. Abdominal pain most likely 2/2 n/v, possible gastritis, r/o pancreatitis, low suspicion for mesenteric ischemia, gall bladder pathology, lower GI disorder, or appendicitis. -EKG, CXR -CBC, CMP, Cardiac Profile, Lipase, Lactate -1L NS -Zofran 8mg IV, Viscous Lido, Maalox, Pepcid -ASA 324mg pending improvement of nausea 02/09/19 20:52 -Patient with continued nausea, emesis in basin - clear with light yellow sputum -Reglan and Benadryl ordered - isopropyl alcohol swab used for brief inhalation without symptomatic relief -CXR changed to portable, patient reports she doesn't think she could stand for an upright 02/09/19 21:32 -Patient reassessed, still with nausea, another small volume emesis bag with clear liquid -Mild leukocytosis to 13.4, electrolytes wnl, coags wnl, Glucose 317 (IVF running), Cr 0.9, Trop negative, Lipase wnl, Lact 1.5 -Pt reports that her insulin "doesn't work for me" and that she needs an twist tester -CXR without infiltrates or effusions on my read -UA ordered to assess for hematuria in case stone -Abdominal tenderness in different location on reassessment (RUQ) still Georges' s negative, nontender LUQ, lower abdomen, epigastrium Dispo planning: plan for tele obs, HEART Score 4 02/09/19 22:01 -Pt with continued vomiting, nausea -12.5 Phenergan, 1g IV tylenol -CTAP with IV contrast 02/10/19 00:13 -CT unremarkable -Pt to Tele Med/Surg for r/o ACS and workup of intractable nausea *DC/Admit/Observation/Transfer Diagnosis at time of Disposition: Chest pain Qualifiers: Chest pain type: unspecified Qualified Code(s): R07.9 - Chest pain, unspecified Abdominal pain Qualifiers: Abdominal location: generalized Qualified Code(s): R10.84 - Generalized abdominal pain - Discharge Dispostion Condition at time of disposition: Guarded Decision to Admit order: Yes - Prescriptions Prescriptions: Insulin (Levemir) [Levemir Vial] 24 unit SQ ONCE #1 vial Insulin (Novolog) [Novolog -] 8 units SQ ONCE #1 vial - Referrals - Patient Instructions - Post Discharge Activity
[2019-02-09] MEDS ORDERED: LIDOCAINE VISCOUS 2% ORAL/TOP 20 ML UNIT-DOSE CUP MM ONE (19:33)
[2019-02-09] MEDS ORDERED: FAMOTIDINE 20 MG/50 ML IVPB 20 MG/50 ML MG IVPB ONE ×2 (19:34→19:56)
[2019-02-09] MEDS ORDERED: MAG HYDROX/AL HYDROX/SIMETH 30 ML UNIT-DOSE CUP PO ONE (19:34)
[2019-02-09] MEDS ORDERED: ONDANSETRON 4 MG/2 ML VIAL IVPB ONE (19:36)
[2019-02-09] MEDS ORDERED: SODIUM CHLORIDE 1,000 ML IV STA (19:37)
[2019-02-09] MEDS ORDERED: LIDOCAINE VISCOUS 2% ORAL/TOP 20 ML UNIT-DOSE CUP ONE (19:56)
[2019-02-09] MEDS ORDERED: MAG HYDROX/AL HYDROX/SIMETH 30 ML UNIT-DOSE CUP ONE (19:56)
[2019-02-09] MEDS ORDERED: ONDANSETRON 4 MG/2 ML VIAL ONE (19:56)
--- NOTE | 2019-02-09 20:11 | PDOC ---
Documentation entered by Daylin Laura SCRIBE, acting as scribe for Johan Rosales MD. Johan Rosales MD: This documentation has been prepared by the Valentín payne Sammi, SCRIBE, under my direction and personally reviewed by me in its entirety. I confirm that the documentation accurately reflects all work, treatment, procedures, and medical decision making performed by me. Attending Attestation - Resident Resident Name: DaniKendrick - ED Attending Attestation I have performed the following: I have examined & evaluated the patient, The case was reviewed & discussed with the resident, I agree w/resident's findings & plan, Exceptions are as noted - HPI HPI: 02/09/19 19:32 The patient is a 53 year old female, with a significant PMH of [place] (2 stents placed 09/2018), HTN, HLD, DM, who presents to the emergency department for evaluation of 2 days of constant, pleuritic, left sided chest pain, 7/10 in severity with associated palpitations and SOB. She notes these symptoms are similar to her last WI. The patient also reports 5 days of non-bloody, non- bilious vomiting, nausea and RUQ abdominal pain 8/10 in severity. Reports normal bowel movements, denies dark or bloody stools. Allergies: Penicillin - Physicial Exam PE: 02/09/19 20:11 GENERAL: The patient is awake, alert, and fully oriented, Nontoxic - in no acute distress. HEAD: Normocephalic, atraumatic. EYES: extraocular movements intact, sclera anicteric, conjunctiva clear. ENT: Normal voice, Moist mucous membranes. NECK: Normal range of motion, supple LUNGS: Breath sounds equal, clear to auscultation bilaterally. No wheezes, no rhonchi, no rales. HEART: Regular rate and rhythm, normal S1 and S2 without murmur, rub or gallop. ABDOMEN: Soft, mild diffuse tenderness in R mid abd/epigastrium ky tis distractible, neg murphies, no ttp at mcburnies point, No guarding, no rebound. No CVA tenderness EXTREMITIES: Normal range of motion, trace edema. NEUROLOGICAL: No facial assymetry, Normal speech, movin gall 4 extremities spontaneously and symmetrically PSYCH: Normal mood, normal affect. SKIN: Warm, Dry, normal turgor, - Medical Decision Making 02/09/19 19:23 53y F hx of [place] (2 stents placed 09/2018), HTN, HLD, DM presents with presents with complaint of 5 days of n/v of food contents associated with abdominal pain , endorses some discomfort with her lawer abdomen. Pt endorses 2 days of substernal intermittent chest pain that feels similar to her prior WI. ddx - pancreaitits, gb diases, gastritis, acs will ck ekg, labs, lipase pt placed on library monitor cxr to scree for acute pulm dz will give gi cocktail 02/09/19 21:26 pts labs reviewed pt still with abd pain, pt also vomiting. will obtian ct abd 02/10/19 00:56 ct neg for acute pathology wlil admit for further mangaement Heart Score/ECG Review - History History: Moderately suspicious - Electrocardiogram EKG: Normal - Age Age: 45-65 - Risk Factors Risk Factors Heart Score: Yes Hx Hypercholesterolemia, Yes Hx Hypertension Based on the list above the patient has:: >/=3 risk factors or Hx atherosclerotic disease - Troponin Troponin: </= normal limit - Score Heart Score - Total: 4 - ECG Impressions Comment:: 02/09/19 20:15 Twelve-lead EKG was performed and reviewed by me. There is normal sinus rhythm with a normal rate. rate of 97 The axis is normal. The intervals are normal. There is normal R wave progression There are no ST or T wave abnormalities.
[2019-02-09 20:24] LABS: BASO % 0.5 % (0-2.0); EOS % 1.5 % (0-4.5); HEMATOCRIT 44.2 % (32.4-45.2); HEMOGLOBIN 14.9 GM/dL (10.7-15.3); LYMPH % 42.1 % (8-40); MCH 31.2 pg (25.7-33.7); MCHC 33.6 g/dl (32.0-36.0); MEAN CELL VOLUME 92.8 fl (80-96); MEAN PLT VOLUME 8.7 fl (7.5-11.1); MONO % 6.3 % (3.8-10.2); NEUT % 49.6 % (42.8-82.8); PLATELET COUNT 342 K/MM3 (134-434); RBC 4.77 M/mm3 (3.60-5.2); RDW 15.3 % (11.6-15.6); WHITE BLOOD COUNT 13.4 K/mm3 (4.0-10.0)
[2019-02-09 20:37] LABS: INR 1.09 (0.83-1.09); PROTHROMBIN TIME (PATIENT) 12.9 SEC (9.7-13.0)
[2019-02-09] MEDS ORDERED: METOCLOPRAMIDE HCL INJECTION 10 MG/2 ML VIAL IVPB ONE (20:51)
[2019-02-09 20:55] LABS: ALBUMIN 3.8 g/dl (3.4-5.0); ALK PHOS 74 U/L (45-117); ANION GAP 12 MMOL/L (8-16); BILIRUBIN,TOTAL 0.3 mg/dL (0.2-1); BLOOD UREA NITROGEN 12.3 mg/dL (7-18); CALCIUM 9.7 mg/dL (8.5-10.1); CHLORIDE 102 mmol/L (98-107); CO2 26 mmol/L (21-32); CREATININE 0.9 mg/dL (0.55-1.3); POTASSIUM 3.5 mmol/L (3.5-5.1); SGOT/AST 11 U/L (15-37); SGPT/ALT 11 U/L (13-61); SODIUM 139 mmol/L (136-145); TOT PROT 7.3 g/dl (6.4-8.2)
[2019-02-09 21:00] LABS: GLUCOSE,RANDOM 317 mg/dL (74-106)
[2019-02-09] MEDS ORDERED: METOCLOPRAMIDE HCL INJECTION 10 MG/2 ML VIAL ONE (21:05)
[2019-02-09] MEDS ORDERED: PROMETHAZINE HCL 25 MG/1 ML VIAL IVPUSH ONE (21:57)
[2019-02-09] MEDS ORDERED: ACETAMINOPHEN 1000 MG/100 ML VIAL (NON FORMULARY) IVPB ONE (21:59)
--- NOTE | 2019-02-09 23:06 | HP ---
CHIEF COMPLAINT: Nausea and vomiting PCP: None HISTORY OF PRESENT ILLNESS: Patient is a 53 year old female with PMH of MA (2 stents 10/18/2018), HTN, HLD, DM, anxiety who presents with nausea and vomiting for 5 days. Vomit is nbnb and associated with 8/10 RUQ pain. Pt has decreased appetite and has been unable to keep food or liquid down without vomiting. She has had normal bowel movements ( no constipation, diarrhea, or blood in stool). She denies any associated fever, chills, SOB, or urinary symptoms. Pt has not had symptoms like this in past. No recent illnesses, no recent travel. Pt is not currently sexually active and denies a history of any STIs. She also complains of substernal reproducible chest pain for 2 days. Pt's pain is intermittent, pleuritic, burning, and 5/10 severity. Exacerbated by movement, palpation, and vomiting. ER course was notable for: (1) FS, given 8 units insulin (2) CTAP: unremarkable (3) WBC: 13.4, afebrile, neg UA Recent Travel: denies PAST MEDICAL HISTORY: MA (2 stents 10/18/18) HTN HLD DM Anxiety PAST SURGICAL HISTORY: Stents (09/2018) Social History: Smokin cig/day, cut back form 3 PPD x 18 years Alcohol: Denies Drugs: Denies Family History: Sister: Breast CA Allergies Penicillins Allergy (Severe, Verified 02/09/19 18:54) Anaphylaxis HOME MEDICATIONS: Home Medications Medication Instructions Recorded Aspirin [ASA -] 81 mg PO DAILY 07/28/18 Alprazolam [Xanax] 2 mg PO DAILY 09/04/18 Atorvastatin Ca [Lipitor] 80 mg PO DAILY 09/04/18 Losartan Potassium 25 mg PO DAILY 09/04/18 Albuterol Sulfate Inhaler - 1 - 2 inh PO QID PRN 11/01/18 [Ventolin HFA Inhaler -] Carbamazepine 100 mg PO BID 11/01/18 Clopidogrel Bisulfate [Plavix] 75 mg PO DAILY 11/01/18 Escitalopram Oxalate [Lexapro -] 20 mg PO DAILY 11/01/18 Gabapentin 300 mg PO TID 11/01/18 Lipase/Protease/Amylase [Creon Dr 1 each PO TID 11/01/18 36,000 Units Capsule] Pantoprazole Sodium 40 mg PO DAILY 11/01/18 Pregabalin [Lyrica -] 150 mg PO DAILY 11/01/18 Quetiapine Fumarate [Seroquel] 300 mg PO HS 11/01/18 Topiramate [Topamax] 50 mg PO TID 11/01/18 Insulin Detemir [Levemir Flextouch] 30 unit SQ BID 11/02/18 Isosorbide Mononitrate [Imdur -] 30 mg PO DAILY tab.sr.24h 11/02/18 Metoprolol Succinate [Toprol XL -] 25 mg PO DAILY #30 tab.sr.24h 11/02/18 Oxycodone-Acetaminophen 10-325 1 tablet PO QID PRN 01/03/19 Fluticasone/Salmeterol [Advair 1 each IH BID #1 blst.w.dev 01/04/19 250-50 Diskus] Gemfibrozil [Lopid -] 600 mg PO BID@0700,1630 #60 tablet 01/04/19 Nitrofurantoin Macrocrystal 50 mg PO Q6HPO #20 capsule 01/04/19 [Macrodantin -] Ondansetron [Ondansetron Odt] 8 mg PO TID #20 tab.rapdis 01/20/19 REVIEW OF SYSTEMS CONSTITUTIONAL: Absent: fever, chills, diaphoresis, generalized weakness, malaise, loss of appetite, weight change HEENT: Absent: rhinorrhea, nasal congestion, throat pain, throat swelling, difficulty swallowing, mouth swelling, ear pain, eye pain, visual changes CARDIOVASCULAR: chest pain Absent: syncope, palpitations, irregular heart rate, lightheadedness, peripheral edema RESPIRATORY: Absent: cough, shortness of breath, dyspnea with exertion, orthopnea, wheezing, stridor, hemoptysis GASTROINTESTINAL: abdominal pain, nausea, vomiting Absent: abdominal distension, diarrhea, constipation, melena, hematochezia GENITOURINARY: Absent: dysuria, frequency, urgency, hesitancy, hematuria, flank pain, genital pain MUSCULOSKELETAL: Absent: myalgia, arthralgia, joint swelling, back pain, neck pain SKIN: Absent: rash, itching, pallor HEMATOLOGIC/IMMUNOLOGIC: Absent: easy bleeding, easy bruising, lymphadenopathy, frequent infections ENDOCRINE: Absent: unexplained weight gain, unexplained weight loss, heat intolerance, cold intolerance NEUROLOGIC: Absent: headache, focal weakness or paresthesias, dizziness, unsteady gait, seizure, mental status changes, bladder or bowel incontinence PSYCHIATRIC: Absent: anxiety, depression, suicidal or homicidal ideation, hallucinations. PHYSICAL EXAMINATION Vital Signs - 24 hr 02/09/19 02/09/19 18:54 22:30 Temperature 99.0 F 98.4 F Pulse Rate 102 H Pulse Rate [ 88 Right Radial] Respiratory 18 Rate Blood Pressure 106/86 Blood Pressure 130/86 [Left Arm] O2 Sat by Pulse 99 100 Oximetry (%) GENERAL: Awake, alert, and fully oriented, in no acute distress. HEAD: Normal with no signs of trauma. EYES: Pupils equal, round and reactive to light, extraocular movements intact, sclera anicteric, conjunctiva clear. No lid lag. EARS, NOSE, THROAT: Ears normal, nares patent, oropharynx clear without exudates. Moist mucous membranes. NECK: Normal range of motion, supple without lymphadenopathy, JVD, or masses. LUNGS: Breath sounds equal, clear to auscultation bilaterally. No wheezes, and no crackles. No accessory muscle use. HEART: Regular rate and rhythm, normal S1 and S2 without murmur, rub or gallop. ABDOMEN: Soft, nontender, not distended, normoactive bowel sounds, no guarding, no rebound, no masses. No hepatomegaly or splenomegaly. MUSCULOSKELETAL: Normal range of motion at all joints. No bony deformities or tenderness. No CVA tenderness. UPPER EXTREMITIES: 2+ pulses, warm, well-perfused. No cyanosis. No clubbing. No peripheral edema. LOWER EXTREMITIES: 2+ pulses, warm, well-perfused. No calf tenderness. No peripheral edema. NEUROLOGICAL: Cranial nerves II-XII intact. Normal speech. Normal gait. PSYCHIATRIC: Cooperative. Good eye contact. Appropriate mood and affect. SKIN: Warm, dry, normal turgor, no rashes or lesions noted, normal capillary refill. Laboratory Results - last 24 hr CBC, BMP 02/09/19 20:11 02/09/19 20:11 ASSESSMENT/PLAN: Patient is a 53 year old female with PMH of MA (2 stents 10/18/2018), HTN, HLD, DM, anxiety who presents with nausea and vomiting for 5 days. #RUQ pain with N/V CTAP: unremarkable, no signs of inflammation, gastritis, edema UA: negative Pt is afebrile. Mild leukocytosis likely reactive 2/2 stress. No sources of infection found on w/u. Will cont to monitor closely. Given pt's poorly controlled diabetes (Hgb A1C: 10.8%) and neg infectious w/u , abd pain is consistent with diabetic gastroparesis. Will cont to treat with IV zofran, reglan, pepcid, and NS. Goal to attain euglycemia #Atypical chest pain EKG: NSR with no ST-T wave chagnes Trop: neg, will cont to trend CXR: no acute pathology Pain is reproducible, exacerbated with palpation and movement. Likely 2/2 anxiety vs frequent vomiting vs MSK. Will monitor on tele to r/o ACS. Consider echo, as pt does not have a recent one for baseline Cont home asa daily #Uncontrolled DM Hgb A1C: 10.8% (December 2018) FS in ED, given 8 units insulin Pt is on 30 levemir SQ at home, reports she is compliant with meds. Starting on SSI during hospitalization Will provide counseling about importance of med compliance, euglycemia, diet and exercise changes, and regular f/u with PCP, ophtho, and podiatry. #HTN Cont home meds: metoprolol succinate 25mg daily and losartan 25mg daily #HLD Cont home meds: atorvastatin 80mg daily #Anxiety Cont home meds: xanax 2mg and escitalopram daily #FEN IV NS @ 75ml/hr NPO for now, given frequent N/V #DVT ppx Heparin SQ #Dispo Monitor on tele Visit type - Emergency Visit Emergency Visit: Yes ED Registration Date: 02/09/19 Care time: The patient presented to the Emergency Department on the above date and was hospitalized for further evaluation of their emergent condition. - New Patient This patient is new to me today: Yes Date on this admission: 02/10/19 - Critical Care Critical Care patient: No ATTENDING PHYSICIAN STATEMENT I saw and evaluated the patient. I reviewed the resident's note and discussed the case with the resident. I agree with the resident's findings and plan as documented. SUBJECTIVE: OBJECTIVE: ASSESSMENT AND PLAN:
--- NOTE | 2019-02-09 23:08 | PN ---
Teaching Attending Note Name of Resident: Sayra Bravo ATTENDING PHYSICIAN STATEMENT I saw and evaluated the patient. I reviewed the resident's note and discussed the case with the resident. I agree with the resident's findings and plan as documented. SUBJECTIVE: Patient is a 53 year old woman with a PMH of MT (2 stents placed 09/2018), Penicillin allergy, HTN, HLD and NIDDM, who presents to the ER for evaluation of 2 days of constant, pleuritic, left sided chest pain, 7/10 in severity with associated palpitations and SOB. She notes these symptoms are similar to her last MT. The patient also reports 5 days of non-bloody, non-bilious vomiting, nausea and RUQ abdominal pain 8/10 in severity. Reports normal bowel movements, denies dark or bloody stools. Has FH of DM and heart disease. OBJECTIVE: Alert Vital Signs Period Temp Pulse Resp BP Sys/Kang Pulse Ox Last 24 Hr 98.4 F-99.0 F 88-102 18 106-130/86-86 99-100 HEENT: No Jaundice, eye redness or discharge, PERRLA, EOMI. Normocephalic, atraumatic. External ears are normal and hearing is grossly intact. No nasal discharge. Neck: Supple, nontender. No palpable adenopathy or thyromegaly. No JVD Chest: Good effort. Clear to auscultation and percussion. Heart: Regular. No S3, rub or murmur Abdomen: Not distended, soft, tender epigastrium and LLQ; no HSM. No rebound or guarding. Normal bowel sounds. Ext: Peripheral pulses intact. No leg edema. Skin: Warm and dry. No petechiae, rash or ecchymosis. Neuro: Alert. Oriented x3. CN 2-12 grossly intact. Sensation grossly intact in all four extremities and DTR are symmetric. Psych: Appropriate mood and affect. Good insight. Home Medications Medication Instructions Recorded Aspirin [ASA -] 81 mg PO DAILY 07/28/18 Alprazolam [Xanax] 2 mg PO DAILY 09/04/18 Atorvastatin Ca [Lipitor] 80 mg PO DAILY 09/04/18 Losartan Potassium 25 mg PO DAILY 09/04/18 Albuterol Sulfate Inhaler - 1 - 2 inh PO QID PRN 11/01/18 [Ventolin HFA Inhaler -] Carbamazepine 100 mg PO BID 11/01/18 Clopidogrel Bisulfate [Plavix] 75 mg PO DAILY 11/01/18 Escitalopram Oxalate [Lexapro -] 20 mg PO DAILY 11/01/18 Gabapentin 300 mg PO TID 11/01/18 Lipase/Protease/Amylase [Creon Dr 1 each PO TID 11/01/18 36,000 Units Capsule] Pantoprazole Sodium 40 mg PO DAILY 11/01/18 Pregabalin [Lyrica -] 150 mg PO DAILY 11/01/18 Quetiapine Fumarate [Seroquel] 300 mg PO HS 11/01/18 Topiramate [Topamax] 50 mg PO TID 11/01/18 Insulin Detemir [Levemir Flextouch] 30 unit SQ BID 11/02/18 Isosorbide Mononitrate [Imdur -] 30 mg PO DAILY tab.sr.24h 11/02/18 Metoprolol Succinate [Toprol XL -] 25 mg PO DAILY #30 tab.sr.24h 11/02/18 Oxycodone-Acetaminophen 10-325 1 tablet PO QID PRN 01/03/19 Fluticasone/Salmeterol [Advair 1 each IH BID #1 blst.w.dev 01/04/19 250-50 Diskus] Gemfibrozil [Lopid -] 600 mg PO BID@0700,1630 #60 tablet 01/04/19 Nitrofurantoin Macrocrystal 50 mg PO Q6HPO #20 capsule 01/04/19 [Macrodantin -] Ondansetron [Ondansetron Odt] 8 mg PO TID #20 tab.rapdis 01/20/19 Abnormal Lab Results 02/09/19 02/09/19 20:11 20:11 WBC 13.4 H Lymphocytes % 42.1 H Random Glucose 317 H* AST 11 L ALT 11 L ASSESSMENT AND PLAN: 1. Abdominal & Chest pain - No acute abnormality on CXR and EKG is NSR with no significant ST-T wave changes. Initial troponin is negative. Preliminary reading of CT of abdomen/pelvis with IV contrast is "no acute abnormality noted ". Chest pain is atypical, but will admit to telemetry to rule out ACS, get ECHO. Abdominal pain syndrome is consistent with diabetic gastropathy. Will treat with IV reglan, zofran, pepcid, IV NS and strive to attain euglycemia. Consult GI. Urinalysis is pending. Leukocytosis likely due to stress - will monitor closely. 2.Uncontrolled DM For now, we will hold the home diabetes drugs and implement sliding scale insulin regimen. Provide comprehensive diabetes care with patient teaching and counseling about the importance of adherence to prescribed diabetes regimen, euglycemia, eye care and foot care. 3. Obesity Counseled on the risks associated with obesity. Will provide patient all the necessary assistance, counseling and positive reinforcement to facilitate weight loss. 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 4. Hypertension - Restart suitable outpatient antihypertensive drugs when clinically appropriate. Revise regimen to ensure [id number] excellent BP control and res counselor patient on the injurious effects of uncontrolled hypertension. Nonpharmacologic measures to control hypertension like weight loss , salt restriction and exercise discussed. Importance of adherence to treatment regimen and attainment of normotension emphasized. 5. DVT prophylaxis - Lovenox 40 mg SQ q 24 hours. 6. Advance directives - Full code
[2019-02-09] MEDS ORDERED: PROMETHAZINE HCL 25 MG/1 ML VIAL ONE (23:34)
[2019-02-09] MEDS ORDERED: ACETAMINOPHEN INJECTION 100 ML IVPB ONE (23:35)
[2019-02-09] MEDS ORDERED: INSULIN (LEVEMIR) 100 UNITS/ML UNITS SQ ONE (23:53)
[2019-02-09] MEDS ORDERED: INSULIN (NOVOLOG) ASPART 100 UNITS/ML 10ML VIAL SQ ONE (23:54)
[2019-02-10 00:39] LABS: URINE APPEARANCE Clear; URINE BILIRUBIN 1+ (NEGATIVE); URINE COLOR Yellow; URINE GLUCOSE (UA) 2+ (NEGATIVE); URINE KETONE 1+ (NEGATIVE); URINE LEUK ESTERASE Negative (NEGATIVE); URINE NITRITE Negative (NEGATIVE); URINE PROTEIN 1+ (NEGATIVE); URINE UROBILINOGEN 0.2 mg/dL (0.2-1.0)
[2019-02-10 00:59] LABS: EPI CELLS 29.7 /HPF (0-5/HPF); HYALINE CASTS 30.86 /lpf (0-8); URINE BACTERIA 359.2 /hpf (NEGATIVE); URINE RBC 2.6 /hpf (0-4); URINE WBC 17.7 /hpf (0-5)
[2019-02-10 01:22] LABS: COCAINE, UR NEGATIVE ng/ml (CUTOFF=300); METHADONE, UR NEGATIVE ng/ml (CUTOFF=300); OPIATES, URI NEGATIVE ng/ml (CUTOFF=300); PHENCYCLIDINE,URINE NEGATIVE ng/ml (CUTOFF=25); URINE AMPHETAMINES NEGATIVE ng/ml (CUTOFF=500); URINE BARBITURATES NEGATIVE ng/ml (CUTOFF=200); URINE BENZODIAZEPINES NEGATIVE ng/ml (CUTOFF=200)
[2019-02-10] MEDS ORDERED: HEPARIN NA (PORCINE) 5,000 UNITS/ML 1ML VIAL ONE ×2 (03:20→09:50)
[2019-02-10] MEDS: HEPARIN NA (PORCINE) 5,000 UNITS/ML 1ML VIAL SQ SCH ×3 (03:20→17:16)
[2019-02-10] MEDS ORDERED: ONDANSETRON 4 MG/2 ML VIAL IVPUSH PRN (04:14)
[2019-02-10] MEDS ORDERED: INSULIN SLIDING SCALE (NOVOLOG) 1 VIAL SQ SCH (07:00)
[2019-02-10] MEDS: INSULIN SLIDING SCALE (NOVOLOG) 1 VIAL SQ SCH ×3 (07:22→17:16)
[2019-02-10 07:30] LABS: ALBUMIN 3.4 g/dl (3.4-5.0); BASO % 0.4 % (0-2.0); BILIRUBIN,TOTAL 0.4 mg/dL (0.2-1); BLOOD UREA NITROGEN 12.8 mg/dL (7-18); CALCIUM 9.4 mg/dL (8.5-10.1); CREATININE 0.7 mg/dL (0.55-1.3); EOS % 1.3 % (0-4.5); HEMOGLOBIN 13.8 GM/dL (10.7-15.3); LYMPH % 42.2 % (8-40); MCH 31.8 pg (25.7-33.7); MCHC 34.4 g/dl (32.0-36.0); MEAN CELL VOLUME 92.5 fl (80-96); MEAN PLT VOLUME 8.8 fl (7.5-11.1); MONO % 5.8 % (3.8-10.2); NEUT % 50.3 % (42.8-82.8); PLATELET COUNT 310 K/MM3 (134-434); POTASSIUM 3.5 mmol/L (3.5-5.1); RBC 4.33 M/mm3 (3.60-5.2); RDW 14.8 % (11.6-15.6); TOT PROT 6.6 g/dl (6.4-8.2); WHITE BLOOD COUNT 8.8 K/mm3 (4.0-10.0)
[2019-02-10] MEDS ORDERED: ASPIRIN 81 MG CHEWABLE TABLETS ONE (09:49)
[2019-02-10] MEDS ORDERED: ALPRAZolam 2 MG TABLET ONE (09:49)
[2019-02-10] MEDS ORDERED: ESCITALOPRAM OXALATE 10 MG TABLET (FP) ONE (09:50)
[2019-02-10] MEDS ORDERED: LOSARTAN POTASSIUM 50 MG TABLET (FP) ONE (09:50)
[2019-02-10] MEDS: ASPIRIN 81 MG CHEWABLE TABLETS PO SCH (09:58)
[2019-02-10] MEDS: LOSARTAN POTASSIUM 25 MG TABLET PO SCH (09:58)
[2019-02-10] MEDS: ESCITALOPRAM OXALATE 20 MG TABLET (FP) PO SCH (09:59)
[2019-02-10] MEDS: metoPROLOL SUCCINATE 25 MG TAB.SR.24H (FP) PO SCH (09:59)
[2019-02-10] MEDS: ALPRAZolam 2 MG TABLET PO SCH (09:59)
--- NOTE | 2019-02-10 10:57 | EKG ---
Test Reason : Blood Pressure : / mmHG Vent. Rate : 081 BPM Atrial Rate : 081 BPM P-R Int : 140 ms QRS Dur : 086 ms QT Int : 396 ms P-R-T Axes : 070 027 004 degrees QTc Int : 460 ms NORMAL SINUS RHYTHM POSSIBLE LEFT ATRIAL ENLARGEMENT BORDERLINE ECG WHEN COMPARED WITH ECG OF 04-JAN-2019 08:50, NO SIGNIFICANT CHANGE WAS FOUND Confirmed by JAIRO BLAKE MD ([id number]) on 02/10/2019 10:56:48 AM Referred By: Confirmed By:JAIRO BLAKE MD
--- NOTE | 2019-02-10 16:12 | PN ---
Physical Exam: SUBJECTIVE: Patient seen and examined by the bedside, AOx3 OBJECTIVE: Vital Signs Period Temp Pulse Resp BP Sys/Kang Pulse Ox Last 24 Hr 98 F-99.0 F 75-102 16-21 106-130/75-95 99-100 GENERAL: The patient is awake, alert, and fully oriented, in no acute distress. HEAD: Normal with no signs of trauma. EYES: PERRL, extraocular movements intact, sclera anicteric, conjunctiva clear. No ptosis. ENT: Ears normal, nares patent, oropharynx clear without exudates, moist mucous membranes. NECK: Trachea midline, full range of motion, supple. LUNGS: decreased breath sounds B/L HEART: Regular rate and rhythm, S1, S2 without murmur, rub or gallop, substernal tenderness to palpation ABDOMEN: Soft,mild tenderness in RUQ and RLQ, nondistended, normoactive bowel sounds, no guarding, no rebound, no hepatosplenomegaly, no masses. EXTREMITIES: 2+ pulses, warm, well-perfused, no edema. NEUROLOGICAL: Cranial nerves II through XII grossly intact. Normal speech, gait not observed. PSYCH: Normal mood, normal affect. SKIN: Warm, dry, normal turgor, no rashes or lesions noted Laboratory Results - last 24 hr 02/09/19 02/09/19 02/09/19 20:11 20:11 20:11 WBC 13.4 H RBC 4.77 Hgb 14.9 Hct 44.2 D MCV 92.8 MCH 31.2 MCHC 33.6 RDW 15.3 Plt Count 342 D MPV 8.7 Absolute Neuts (auto) 6.6 Neutrophils % 49.6 Lymphocytes % 42.1 H Monocytes % 6.3 Eosinophils % 1.5 Basophils % 0.5 Nucleated RBC % 0 PT with INR INR Sodium 139 Potassium 3.5 Chloride 102 Carbon Dioxide 26 Anion Gap 12 BUN 12.3 Creatinine 0.9 Est GFR (CKD-EPI)AfAm 85.20 Est GFR (CKD-EPI)NonAf 73.51 POC Glucometer Random Glucose 317 H* Lactic Acid 1.5 Calcium 9.7 Total Bilirubin 0.3 AST 11 L ALT 11 L Alkaline Phosphatase 74 Creatine Kinase 33 Troponin I < 0.02 Total Protein 7.3 Albumin 3.8 Lipase Urine Color Urine Appearance Urine pH Ur Specific [place] Urine Protein Urine Glucose (UA) Urine Ketones Urine Blood Urine Nitrite Urine Bilirubin Urine Urobilinogen Ur Leukocyte Esterase Urine WBC (Auto) Urine RBC (Auto) Urine Casts (Auto) U Epithel Cells (Auto) Urine Bacteria (Auto) Opiates Screen Methadone Screen Barbiturate Screen Phencyclidine Screen Ur Amphetamines Screen MDMA (Ecstasy) Screen Benzodiazepines Screen Cocaine Screen U Marijuana (THC) Screen 02/09/19 02/09/19 02/09/19 20:11 20:11 23:38 WBC RBC Hgb Hct MCV MCH MCHC RDW Plt Count MPV Absolute Neuts (auto) Neutrophils % Lymphocytes % Monocytes % Eosinophils % Basophils % Nucleated RBC % PT with INR 12.90 INR 1.09 Sodium Potassium Chloride Carbon Dioxide Anion Gap BUN Creatinine Est GFR (CKD-EPI)AfAm Est GFR (CKD-EPI)NonAf POC Glucometer 401 Random Glucose Lactic Acid Calcium Total Bilirubin AST ALT Alkaline Phosphatase Creatine Kinase Troponin I Total Protein Albumin Lipase 235 Urine Color Urine Appearance Urine pH Ur Specific [place] Urine Protein Urine Glucose (UA) Urine Ketones Urine Blood Urine Nitrite Urine Bilirubin Urine Urobilinogen Ur Leukocyte Esterase Urine WBC (Auto) Urine RBC (Auto) Urine Casts (Auto) U Epithel Cells (Auto) Urine Bacteria (Auto) Opiates Screen Methadone Screen Barbiturate Screen Phencyclidine Screen Ur Amphetamines Screen MDMA (Ecstasy) Screen Benzodiazepines Screen Cocaine Screen U Marijuana (THC) Screen 02/10/19 02/10/19 02/10/19 00:14 00:31 00:31 WBC RBC Hgb Hct MCV MCH MCHC RDW Plt Count MPV Absolute Neuts (auto) Neutrophils % Lymphocytes % Monocytes % Eosinophils % Basophils % Nucleated RBC % PT with INR INR Sodium Potassium Chloride Carbon Dioxide Anion Gap BUN Creatinine Est GFR (CKD-EPI)AfAm Est GFR (CKD-EPI)NonAf POC Glucometer Random Glucose Lactic Acid Calcium Total Bilirubin AST ALT Alkaline Phosphatase Creatine Kinase Troponin I < 0.02 Total Protein Albumin Lipase Urine Color Yellow Urine Appearance Clear Urine pH 6.0 Ur Specific [place] <= 1.005 L Urine Protein 1+ H Urine Glucose (UA) 2+ H Urine Ketones 1+ H Urine Blood Negative Urine Nitrite Negative Urine Bilirubin 1+ H Urine Urobilinogen 0.2 Ur Leukocyte Esterase Negative Urine WBC (Auto) 17.7 Urine RBC (Auto) 2.6 Urine Casts (Auto) 30.86 U Epithel Cells (Auto) 29.7 Urine Bacteria (Auto) 359.2 Opiates Screen Negative Methadone Screen Negative Barbiturate Screen Negative Phencyclidine Screen Negative Ur Amphetamines Screen Negative MDMA (Ecstasy) Screen Negative Benzodiazepines Screen Negative Cocaine Screen Negative U Marijuana (THC) Screen Negative 02/10/19 02/10/19 02/10/19 06:32 06:32 07:21 WBC 8.8 RBC 4.33 Hgb 13.8 Hct 40.0 MCV 92.5 MCH 31.8 MCHC 34.4 RDW 14.8 Plt Count 310 MPV 8.8 Absolute Neuts (auto) 4.4 Neutrophils % 50.3 Lymphocytes % 42.2 H Monocytes % 5.8 Eosinophils % 1.3 Basophils % 0.4 Nucleated RBC % 0 PT with INR INR Sodium 140 Potassium 3.5 Chloride 105 Carbon Dioxide 26 Anion Gap 10 BUN 12.8 Creatinine 0.7 Est GFR (CKD-EPI)AfAm 115.45 Est GFR (CKD-EPI)NonAf 99.62 POC Glucometer 273 Random Glucose 262 H Lactic Acid Calcium 9.4 Total Bilirubin 0.4 AST 8 L ALT 10 L Alkaline Phosphatase 65 Creatine Kinase Troponin I Total Protein 6.6 Albumin 3.4 Lipase Urine Color Urine Appearance Urine pH Ur Specific [place] Urine Protein Urine Glucose (UA) Urine Ketones Urine Blood Urine Nitrite Urine Bilirubin Urine Urobilinogen Ur Leukocyte Esterase Urine WBC (Auto) Urine RBC (Auto) Urine Casts (Auto) U Epithel Cells (Auto) Urine Bacteria (Auto) Opiates Screen Methadone Screen Barbiturate Screen Phencyclidine Screen Ur Amphetamines Screen MDMA (Ecstasy) Screen Benzodiazepines Screen Cocaine Screen U Marijuana (THC) Screen 02/10/19 13:37 WBC RBC Hgb Hct MCV MCH MCHC RDW Plt Count MPV Absolute Neuts (auto) Neutrophils % Lymphocytes % Monocytes % Eosinophils % Basophils % Nucleated RBC % PT with INR INR Sodium Potassium Chloride Carbon Dioxide Anion Gap BUN Creatinine Est GFR (CKD-EPI)AfAm Est GFR (CKD-EPI)NonAf POC Glucometer 258 Random Glucose Lactic Acid Calcium Total Bilirubin AST ALT Alkaline Phosphatase Creatine Kinase Troponin I Total Protein Albumin Lipase Urine Color Urine Appearance Urine pH Ur Specific [place] Urine Protein Urine Glucose (UA) Urine Ketones Urine Blood Urine Nitrite Urine Bilirubin Urine Urobilinogen Ur Leukocyte Esterase Urine WBC (Auto) Urine RBC (Auto) Urine Casts (Auto) U Epithel Cells (Auto) Urine Bacteria (Auto) Opiates Screen Methadone Screen Barbiturate Screen Phencyclidine Screen Ur Amphetamines Screen MDMA (Ecstasy) Screen Benzodiazepines Screen Cocaine Screen U Marijuana (THC) Screen Active Medications Generic Name Dose Route Start Last Admin Trade Name Freq PRN Reason Stop Dose Admin Alprazolam 2 mg 02/10/19 10:00 02/10/19 09:59 Xanax - PO [address] Administration Aspirin 81 mg 02/10/19 10:00 02/10/19 09:58 Asa - PO [address] Administration Atorvastatin Calcium 80 mg 02/10/19 22:00 Lipitor - PO HS LANE Escitalopram Oxalate 20 mg 02/10/19 10:00 02/10/19 09:59 Lexapro - PO [address] Administration Heparin Sodium (Porcine) 5,000 unit 02/10/19 02:00 02/10/19 09:58 Heparin - SQ 5,000 unit Q8H-IV LANE Administration Insulin Aspart 1 vial 02/10/19 07:00 02/10/19 11:04 Novolog Vial Sliding Scale - SQ Not Given TIDAC REPLACED BY [facility] Protocol Losartan Potassium 25 mg 02/10/19 10:00 02/10/19 09:58 Cozaar - PO [address] Administration Metoprolol Succinate 25 mg 02/10/19 10:00 02/10/19 09:59 Toprol Xl - PO [address] Administration Ondansetron HCl 4 mg 02/10/19 04:14 Zofran Injection IVPUSH Q6H PRN NAUSEA AND/OR VOMITING ASSESSMENT/PLAN: 53YO F with PMH significant for DC (s/p 2 stents in September), HTN, HLD, DM, and anxiety. She presented to the ER with RUQ abdominal pain ssociated with nausea and NBNB vomiting for 5 days. No associated fever, chills, SOB, or urinary symptoms. Also complains of pleuritic, substernal reproducible chest pain for 2 days. #Diabetic Gastroparesis: - Hgb A1C: 10.8%, poor diabetic control - CT Abdomen Pelvis: no signs of inflammation, gastritis, edema - Afebrile, WBC: 13.4 -> 8.8 - Zofran - Abdominal USG: No gallstones, slightly dense echotexture => fatty infiltration vs hepatocellular disease #Pleuritic chest pain - Rule out ACS, Tele - EKG: NSR with no ST-T wave chagnes - Trop: 0.02 2x - CXR: no acute pathology - Cont home meds: ASA 81mg #Hx of DM - Hgb A1C: 10.8% (December 2018) - FBG 401 on presentation, given 8 units insulin - Given 6 units in the AM - Levemir 30 units at home - Starting on SSI during hospitalization #HTN - Cont home meds: Metoprolol 25mg, Losartan 25mg #Hx of HLD - Cont home meds: Lipitor 80mg daily #Anxiety - Cont home meds: Xanax 2mg and Escitalopram 20mg #FEN - Clear liquid diet #DVT ppx - Heparin SQ #Dispo - Monitor on tele Visit type - Emergency Visit Emergency Visit: Yes ED Registration Date: 02/09/19 Care time: The patient presented to the Emergency Department on the above date and was hospitalized for further evaluation of their emergent condition. - New Patient This patient is new to me today: Yes Date on this admission: 02/10/19 - Critical Care Critical Care patient: No - Discharge Referral Referred to [facility] Med [facility] No ATTENDING PHYSICIAN STATEMENT I saw and evaluated the patient. I reviewed the resident's note and discussed the case with the resident. I agree with the resident's findings and plan as documented. SUBJECTIVE: OBJECTIVE: ASSESSMENT AND PLAN:
[2019-02-10] MEDS ORDERED: ALBUTEROL SO4 8 GM HFA INHALER IH PRN (17:22)
--- NOTE | 2019-02-10 17:47 | PN ---
Teaching Attending Note Name of Resident: Joel Millard ATTENDING PHYSICIAN STATEMENT I saw and evaluated the patient. I reviewed the resident's note and discussed the case with the resident. I agree with the resident's findings and plan as documented. SUBJECTIVE: Patient complaining of abdominal pain. OBJECTIVE: Vital Signs Period Temp Pulse Resp BP Sys/Kang Pulse Ox Last 24 Hr 98 F-99.0 F 75-102 16-21 106-130/75-95 99-100 HEART: S1S2, RRR LUNGS: Clear ABDOMEN: Soft, non-distended, (+) RUQ/epigastric tenderness EXTREMITIES: No edema Laboratory Results - last 24 hr 02/09/19 02/09/19 02/09/19 20:11 20:11 20:11 WBC 13.4 H RBC 4.77 Hgb 14.9 Hct 44.2 D MCV 92.8 MCH 31.2 MCHC 33.6 RDW 15.3 Plt Count 342 D MPV 8.7 Absolute Neuts (auto) 6.6 Neutrophils % 49.6 Lymphocytes % 42.1 H Monocytes % 6.3 Eosinophils % 1.5 Basophils % 0.5 Nucleated RBC % 0 PT with INR INR Sodium 139 Potassium 3.5 Chloride 102 Carbon Dioxide 26 Anion Gap 12 BUN 12.3 Creatinine 0.9 Est GFR (CKD-EPI)AfAm 85.20 Est GFR (CKD-EPI)NonAf 73.51 POC Glucometer Random Glucose 317 H* Lactic Acid 1.5 Calcium 9.7 Total Bilirubin 0.3 AST 11 L ALT 11 L Alkaline Phosphatase 74 Creatine Kinase 33 Troponin I < 0.02 Total Protein 7.3 Albumin 3.8 Lipase Urine Color Urine Appearance Urine pH Ur Specific [place] Urine Protein Urine Glucose (UA) Urine Ketones Urine Blood Urine Nitrite Urine Bilirubin Urine Urobilinogen Ur Leukocyte Esterase Urine WBC (Auto) Urine RBC (Auto) Urine Casts (Auto) U Epithel Cells (Auto) Urine Bacteria (Auto) Opiates Screen Methadone Screen Barbiturate Screen Phencyclidine Screen Ur Amphetamines Screen MDMA (Ecstasy) Screen Benzodiazepines Screen Cocaine Screen U Marijuana (THC) Screen 02/09/19 02/09/19 02/09/19 20:11 20:11 23:38 WBC RBC Hgb Hct MCV MCH MCHC RDW Plt Count MPV Absolute Neuts (auto) Neutrophils % Lymphocytes % Monocytes % Eosinophils % Basophils % Nucleated RBC % PT with INR 12.90 INR 1.09 Sodium Potassium Chloride Carbon Dioxide Anion Gap BUN Creatinine Est GFR (CKD-EPI)AfAm Est GFR (CKD-EPI)NonAf POC Glucometer 401 Random Glucose Lactic Acid Calcium Total Bilirubin AST ALT Alkaline Phosphatase Creatine Kinase Troponin I Total Protein Albumin Lipase 235 Urine Color Urine Appearance Urine pH Ur Specific [place] Urine Protein Urine Glucose (UA) Urine Ketones Urine Blood Urine Nitrite Urine Bilirubin Urine Urobilinogen Ur Leukocyte Esterase Urine WBC (Auto) Urine RBC (Auto) Urine Casts (Auto) U Epithel Cells (Auto) Urine Bacteria (Auto) Opiates Screen Methadone Screen Barbiturate Screen Phencyclidine Screen Ur Amphetamines Screen MDMA (Ecstasy) Screen Benzodiazepines Screen Cocaine Screen U Marijuana (THC) Screen 02/10/19 02/10/19 02/10/19 00:14 00:31 00:31 WBC RBC Hgb Hct MCV MCH MCHC RDW Plt Count MPV Absolute Neuts (auto) Neutrophils % Lymphocytes % Monocytes % Eosinophils % Basophils % Nucleated RBC % PT with INR INR Sodium Potassium Chloride Carbon Dioxide Anion Gap BUN Creatinine Est GFR (CKD-EPI)AfAm Est GFR (CKD-EPI)NonAf POC Glucometer Random Glucose Lactic Acid Calcium Total Bilirubin AST ALT Alkaline Phosphatase Creatine Kinase Troponin I < 0.02 Total Protein Albumin Lipase Urine Color Yellow Urine Appearance Clear Urine pH 6.0 Ur Specific [place] <= 1.005 L Urine Protein 1+ H Urine Glucose (UA) 2+ H Urine Ketones 1+ H Urine Blood Negative Urine Nitrite Negative Urine Bilirubin 1+ H Urine Urobilinogen 0.2 Ur Leukocyte Esterase Negative Urine WBC (Auto) 17.7 Urine RBC (Auto) 2.6 Urine Casts (Auto) 30.86 U Epithel Cells (Auto) 29.7 Urine Bacteria (Auto) 359.2 Opiates Screen Negative Methadone Screen Negative Barbiturate Screen Negative Phencyclidine Screen Negative Ur Amphetamines Screen Negative MDMA (Ecstasy) Screen Negative Benzodiazepines Screen Negative Cocaine Screen Negative U Marijuana (THC) Screen Negative 02/10/19 02/10/19 02/10/19 06:32 06:32 07:21 WBC 8.8 RBC 4.33 Hgb 13.8 Hct 40.0 MCV 92.5 MCH 31.8 MCHC 34.4 RDW 14.8 Plt Count 310 MPV 8.8 Absolute Neuts (auto) 4.4 Neutrophils % 50.3 Lymphocytes % 42.2 H Monocytes % 5.8 Eosinophils % 1.3 Basophils % 0.4 Nucleated RBC % 0 PT with INR INR Sodium 140 Potassium 3.5 Chloride 105 Carbon Dioxide 26 Anion Gap 10 BUN 12.8 Creatinine 0.7 Est GFR (CKD-EPI)AfAm 115.45 Est GFR (CKD-EPI)NonAf 99.62 POC Glucometer 273 Random Glucose 262 H Lactic Acid Calcium 9.4 Total Bilirubin 0.4 AST 8 L ALT 10 L Alkaline Phosphatase 65 Creatine Kinase Troponin I Total Protein 6.6 Albumin 3.4 Lipase Urine Color Urine Appearance Urine pH Ur Specific [place] Urine Protein Urine Glucose (UA) Urine Ketones Urine Blood Urine Nitrite Urine Bilirubin Urine Urobilinogen Ur Leukocyte Esterase Urine WBC (Auto) Urine RBC (Auto) Urine Casts (Auto) U Epithel Cells (Auto) Urine Bacteria (Auto) Opiates Screen Methadone Screen Barbiturate Screen Phencyclidine Screen Ur Amphetamines Screen MDMA (Ecstasy) Screen Benzodiazepines Screen Cocaine Screen U Marijuana (THC) Screen 02/10/19 02/10/19 13:37 17:13 WBC RBC Hgb Hct MCV MCH MCHC RDW Plt Count MPV Absolute Neuts (auto) Neutrophils % Lymphocytes % Monocytes % Eosinophils % Basophils % Nucleated RBC % PT with INR INR Sodium Potassium Chloride Carbon Dioxide Anion Gap BUN Creatinine Est GFR (CKD-EPI)AfAm Est GFR (CKD-EPI)NonAf POC Glucometer 258 295 Random Glucose Lactic Acid Calcium Total Bilirubin AST ALT Alkaline Phosphatase Creatine Kinase Troponin I Total Protein Albumin Lipase Urine Color Urine Appearance Urine pH Ur Specific [place] Urine Protein Urine Glucose (UA) Urine Ketones Urine Blood Urine Nitrite Urine Bilirubin Urine Urobilinogen Ur Leukocyte Esterase Urine WBC (Auto) Urine RBC (Auto) Urine Casts (Auto) U Epithel Cells (Auto) Urine Bacteria (Auto) Opiates Screen Methadone Screen Barbiturate Screen Phencyclidine Screen Ur Amphetamines Screen MDMA (Ecstasy) Screen Benzodiazepines Screen Cocaine Screen U Marijuana (THC) Screen Current Medications Generic Name Dose Route Start Last Admin Trade Name Freq PRN Reason Stop Dose Admin Albuterol Sulfate 1 puff 02/10/19 17:22 Ventolin Hfa Inhaler - IH Q6H PRN SHORTNESS OF BREATH Alprazolam 2 mg 02/10/19 10:00 02/10/19 09:59 Xanax - PO [address] Administration Aspirin 81 mg 02/10/19 10:00 02/10/19 09:58 Asa - PO 81 mg DAILY [facility] Administration Atorvastatin Calcium 80 mg 02/10/19 22:00 Lipitor - PO HS [facility] Clopidogrel Bisulfate 75 mg 02/11/19 10:00 Plavix - PO DAILY [facility] Escitalopram Oxalate 20 mg 02/10/19 10:00 02/10/19 09:59 Lexapro - PO [address] Administration Gabapentin 800 mg 02/10/19 22:00 Neurontin - PO TID LANE Heparin Sodium (Porcine) 5,000 unit 02/10/19 02:00 02/10/19 17:16 Heparin - SQ 5,000 unit Q8H-IV LANE Administration Insulin Aspart 1 vial 02/10/19 07:00 02/10/19 17:16 Novolog Vial Sliding Scale - SQ 6 unit TIDAC [facility] Administration Protocol Losartan Potassium 25 mg 02/10/19 10:00 02/10/19 09:58 Cozaar - PO 25 mg DAILY [facility] Administration Metoprolol Succinate 25 mg 02/10/19 10:00 02/10/19 09:59 Toprol Xl - PO 25 mg DAILY [facility] Administration Non-Formulary Medication 1 puff 02/10/19 17:22 Fluticasone/Salmeterol [Advair 250-50 Diskus] IH BID PRN ASTHMA Ondansetron HCl 4 mg 02/10/19 04:14 Zofran Injection IVPUSH Q6H PRN NAUSEA AND/OR VOMITING Ranitidine HCl 150 mg 02/11/19 10:00 Zantac - PO DAILY [facility] Topiramate 150 mg 02/10/19 22:00 Topamax - PO BID [facility] ASSESSMENT AND PLAN: This is a 53 year old woman with a history of CAD, [place], stents, HTN, hyperlipidemia, type 2 DM, anxiety who presented to the ED with RUQ abdominal pain, nausea, vomiting, and chest pain. 1. Abdominal pain with nausea and vomiting - Possible diabetic gastroparesis - CT A/P shows no acute process, 3.5 x 2.0 cm periumbilical fat-containing hernia, bilateral tubal ligation, 3 mm left hepatic lobe hypodensity, mild aortoiliac atherosclerotic disease - RUQ US shows slightly dense echotexture of liver (fatty infiltration vs hepatocellular disease), no gallstones - Start Reglan 2. Pleuritic chest pain - Troponin negative x 2 3. Type 2 DM, uncontrolled, with peripheral neuropathy - Continue Novolog sliding scale - Continue Neurontin - Restart Levemir 4. HTN - Continue Toprol XL, Cozaar 5. Hyperlipidemia - Continue Lipitor 6. CAD, history of [place], stents - Continue aspirin, Plavix, Toprol XL, Lipitor 7. Anxiety - Continue Lexapro, Xanax 8. Chronic pain - Continue oxycodone SR, oxycodone IR as needed
[2019-02-10] MEDS ORDERED: oxyCODONE HCL 5 MG TABLET PO PRN (18:02)
[2019-02-10] MEDS: TOPIRAMATE 100 MG TABLET PO SCH (21:20)
[2019-02-10] MEDS: ATORVASTATIN CA 80 MG TABLET (FP) PO SCH (21:20)
[2019-02-10] MEDS: BUDESONIDE/FORMETEROL FUMARATE 80/4.5 mcg INHALER IH SCH (21:20)
[2019-02-10] MEDS: GABAPENTIN 400 MG CAPSULE (FP) PO SCH (21:20)
[2019-02-10] MEDS: oxyCODONE HCL 5 MG TABLET PO PRN (22:24)
[2019-02-11] MEDS: HEPARIN NA (PORCINE) 5,000 UNITS/ML 1ML VIAL SQ SCH ×3 (01:56→17:45)
[2019-02-11] MEDS: GABAPENTIN 400 MG CAPSULE (FP) PO SCH ×3 (06:14→22:00)
[2019-02-11] MEDS: INSULIN SLIDING SCALE (NOVOLOG) 1 VIAL SQ SCH ×3 (06:16→17:46)
[2019-02-11] MEDS: oxyCODONE HCL 5 MG TABLET PO PRN ×2 (06:41→22:00)
[2019-02-11 06:48] LABS: HEMATOCRIT 39.5 % (32.4-45.2); HEMOGLOBIN 13.5 GM/dL (10.7-15.3); MCH 31.6 pg (25.7-33.7); MCHC 34.2 g/dl (32.0-36.0); MEAN CELL VOLUME 92.5 fl (80-96); MEAN PLT VOLUME 8.8 fl (7.5-11.1); PLATELET COUNT 320 K/MM3 (134-434); RBC 4.27 M/mm3 (3.60-5.2); RDW 14.9 % (11.6-15.6); WHITE BLOOD COUNT 9.1 K/mm3 (4.0-10.0)
[2019-02-11 07:14] LABS: ALBUMIN 3.2 g/dl (3.4-5.0); BILIRUBIN,TOTAL 0.2 mg/dL (0.2-1); BLOOD UREA NITROGEN 13.5 mg/dL (7-18); CALCIUM 9.3 mg/dL (8.5-10.1); CREATININE 0.7 mg/dL (0.55-1.3); POTASSIUM 3.5 mmol/L (3.5-5.1); TOT PROT 6.3 g/dl (6.4-8.2)
[2019-02-11] MEDS: ESCITALOPRAM OXALATE 20 MG TABLET (FP) PO SCH (09:58)
[2019-02-11] MEDS: ALPRAZolam 2 MG TABLET PO SCH (09:59)
[2019-02-11] MEDS: TOPIRAMATE 100 MG TABLET PO SCH ×2 (09:59→21:59)
[2019-02-11] MEDS: LOSARTAN POTASSIUM 25 MG TABLET PO SCH (09:59)
[2019-02-11] MEDS: metoPROLOL SUCCINATE 25 MG TAB.SR.24H (FP) PO SCH (09:59)
[2019-02-11] MEDS: RANITIDINE HCL 150 MG TABLET (FP) PO SCH (09:59)
[2019-02-11] MEDS: CLOPIDOGREL BISULFATE 75 MG TABLET (FP) PO SCH (09:59)
[2019-02-11] MEDS: ASPIRIN 81 MG CHEWABLE TABLETS PO SCH (09:59)
[2019-02-11] MEDS: BUDESONIDE/FORMETEROL FUMARATE 80/4.5 mcg INHALER IH SCH ×2 (10:00→22:36)
--- NOTE | 2019-02-11 15:25 | PN ---
Physical Exam: SUBJECTIVE: Patient seen and examined by the bedside, AOx3, complaining of abdominal pain OBJECTIVE: Vital Signs Period Temp Pulse Resp BP Sys/Kang Pulse Ox Last 24 Hr 97.6 F-98.6 F 70-89 17-20 96-139/61-91 99-100 GENERAL: The patient is awake, alert, and fully oriented, in no acute distress. HEAD: Normal with no signs of trauma. EYES: PERRL, extraocular movements intact, sclera anicteric, conjunctiva clear. No ptosis. ENT: Ears normal, nares patent, oropharynx clear without exudates, moist mucous membranes. NECK: Trachea midline, full range of motion, supple. LUNGS: decreased breath sounds B/L HEART: Regular rate and rhythm, S1, S2 without murmur, rub or gallop, substernal tenderness to palpation ABDOMEN: Soft,mild tenderness in RUQ and RLQ, nondistended, normoactive bowel sounds, no guarding, no rebound, no hepatosplenomegaly, no masses. EXTREMITIES: 2+ pulses, warm, well-perfused, no edema. NEUROLOGICAL: Cranial nerves II through XII grossly intact. Normal speech, gait not observed. PSYCH: Normal mood, normal affect. Laboratory Results - last 24 hr 02/10/19 02/11/19 02/11/19 17:13 06:00 06:00 WBC 9.1 RBC 4.27 Hgb 13.5 Hct 39.5 MCV 92.5 MCH 31.6 MCHC 34.2 RDW 14.9 Plt Count 320 MPV 8.8 Sodium 139 Potassium 3.5 Chloride 102 Carbon Dioxide 28 Anion Gap 9 BUN 13.5 Creatinine 0.7 Est GFR (CKD-EPI)AfAm 115.45 Est GFR (CKD-EPI)NonAf 99.62 POC Glucometer 295 Random Glucose 314 H* Calcium 9.3 Total Bilirubin 0.2 AST 8 L ALT 10 L Alkaline Phosphatase 62 Total Protein 6.3 L Albumin 3.2 L 02/11/19 02/11/19 06:13 12:17 WBC RBC Hgb Hct MCV MCH MCHC RDW Plt Count MPV Sodium Potassium Chloride Carbon Dioxide Anion Gap BUN Creatinine Est GFR (CKD-EPI)AfAm Est GFR (CKD-EPI)NonAf POC Glucometer 314 349 Random Glucose Calcium Total Bilirubin AST ALT Alkaline Phosphatase Total Protein Albumin Current Medications Albuterol Sulfate (Ventolin Hfa Inhaler -) 1 puff IH Q6H PRN PRN Reason: SHORTNESS OF BREATH Alprazolam (Xanax -) 2 mg PO DAILY [facility] Last Admin: 02/11/19 09:59 Dose: 2 mg Aspirin (Asa -) 81 mg PO DAILY [facility] Last Admin: 02/11/19 09:59 Dose: 81 mg Atorvastatin Calcium (Lipitor -) 80 mg PO HS [facility] Last Admin: 02/10/19 21:20 Dose: 80 mg Budesonide/Formoterol Fumarate (Symbicort 80/4.5mcg -) 2 puff IH BID [facility] Last Admin: 02/11/19 10:00 Dose: 2 puff Clopidogrel Bisulfate (Plavix -) 75 mg PO DAILY [facility] Last Admin: 02/11/19 09:59 Dose: 75 mg Escitalopram Oxalate (Lexapro -) 20 mg PO DAILY [facility] Last Admin: 02/11/19 09:58 Dose: 20 mg Gabapentin (Neurontin -) 800 mg PO TID [facility] Last Admin: 02/11/19 13:18 Dose: Not Given Heparin Sodium (Porcine) (Heparin -) 5,000 unit SQ Q8H-IV [facility] Last Admin: 02/11/19 10:00 Dose: 5,000 unit Insulin Aspart (Novolog Vial Sliding Scale -) 1 v[facility]Q [facility]; Protocol Last Admin: 02/11/19 13:15 Dose: 8 unit Insulin Detemir (Levemir Vial) 30 units SQ [facility] Losartan Potassium (Cozaar -) 25 mg PO DAILY [facility] Last Admin: 02/11/19 09:59 Dose: 25 mg Metoprolol Succinate (Toprol Xl -) 25 mg PO DAILY [facility] Last Admin: 02/11/19 09:59 Dose: 25 mg Ondansetron HCl (Zofran Injection) 4 mg IVPUSH Q6H PRN PRN Reason: NAUSEA AND/OR VOMITING Last Admin: 02/10/19 19:50 Dose: 4 mg Oxycodone HCl (Roxicodone -) 30 mg PO Q8H PRN PRN Reason: PAIN LEVEL 6-10 Last Admin: 02/11/19 06:41 Dose: 30 mg Ranitidine HCl (Zantac -) 150 mg PO DAILY [facility] Last Admin: 02/11/19 09:59 Dose: 150 mg Topiramate (Topamax -) [address] Last Admin: 02/11/19 09:59 Dose: 150 mg ASSESSMENT/PLAN: 53YO F with PMH significant for HI (s/p 2 stents in September), HTN, HLD, DM, and anxiety. She presented to the ER with RUQ abdominal pain ssociated with nausea and NBNB vomiting for 5 days. No associated fever, chills, SOB, or urinary symptoms. Also complains of pleuritic, substernal reproducible chest pain for 2 days. #Diabetic Gastroparesis: - CT Abdomen Pelvis: no signs of inflammation, gastritis, edema, periumbilical fa containing hernia - Abdominal USG: No gallstones, slightly dense echotexture => fatty infiltration vs hepatocellular disease - Afebrile, WBC: 13.4 -> 8.8 -> 9.1 - Continue home med Oxycodone 30mg Q8 for pain, Reglan for nausea - Gastro consulted for continued abdominal pain #Pleuritic chest pain - Rule out ACS - EKG: NSR with no ST-T wave changes - Trop: 0.02 2x - CXR: no acute pathology - Cont home meds: ASA 81mg #Hx of DM - Hgb A1C: 10.8% (December 2018) - FBG 349 at 12:17, given 8 units insulin 1:15MP - Novolog SS - Given 6 units in the AM - Levemir 30 units at home #HTN - Cont home meds: Metoprolol 25mg, Losartan 25mg #Hx of HLD - Cont home meds: Lipitor 80mg daily #Anxiety - Cont home meds: Xanax 2mg and Escitalopram 20mg #FEN - NPO pending gastro consult in case they want to perform a procedure #DVT ppx - Heparin SQ #Dispo - Tele D/C Visit type - Emergency Visit Emergency Visit: Yes ED Registration Date: 02/10/19 Care time: The patient presented to the Emergency Department on the above date and was hospitalized for further evaluation of their emergent condition. - New Patient This patient is new to me today: No - Critical Care Critical Care patient: No - Discharge Referral Referred to [facility] Med [facility] No ATTENDING PHYSICIAN STATEMENT I saw and evaluated the patient. I reviewed the resident's note and discussed the case with the resident. I agree with the resident's findings and plan as documented. SUBJECTIVE: OBJECTIVE: ASSESSMENT AND PLAN:
[2019-02-11] MEDS ORDERED: METOCLOPRAMIDE HCL INJECTION 10 MG/2 ML VIAL IVPUSH PRN (15:36)
--- NOTE | 2019-02-11 15:55 | PN ---
Teaching Attending Note Name of Resident: Joel Millard ATTENDING PHYSICIAN STATEMENT I saw and evaluated the patient. I reviewed the resident's note and discussed the case with the resident. I agree with the resident's findings and plan as documented. SUBJECTIVE: Patient continues to complain of right-sided abdominal pain. She denies nausea, vomiting. She says she has not had a bowel movement in 2 days and thinks she needs her "stomach opened". OBJECTIVE: Vital Signs Period Temp Pulse Resp BP Sys/Kang Pulse Ox Last 24 Hr 97.6 F-98.6 F 70-89 17-20 96-139/61-91 99-100 HEART: S1S2, RRR LUNGS: Clear ABDOMEN: Obese, soft, non-distended, (+) RUQ/RLQ tenderness, normal BS EXTREMITIES: No edema Laboratory Results - last 24 hr 02/10/19 02/11/19 02/11/19 17:13 06:00 06:00 WBC 9.1 RBC 4.27 Hgb 13.5 Hct 39.5 MCV 92.5 MCH 31.6 MCHC 34.2 RDW 14.9 Plt Count 320 MPV 8.8 Sodium 139 Potassium 3.5 Chloride 102 Carbon Dioxide 28 Anion Gap 9 BUN 13.5 Creatinine 0.7 Est GFR (CKD-EPI)AfAm 115.45 Est GFR (CKD-EPI)NonAf 99.62 POC Glucometer 295 Random Glucose 314 H* Calcium 9.3 Total Bilirubin 0.2 AST 8 L ALT 10 L Alkaline Phosphatase 62 Total Protein 6.3 L Albumin 3.2 L 02/11/19 02/11/19 06:13 12:17 WBC RBC Hgb Hct MCV MCH MCHC RDW Plt Count MPV Sodium Potassium Chloride Carbon Dioxide Anion Gap BUN Creatinine Est GFR (CKD-EPI)AfAm Est GFR (CKD-EPI)NonAf POC Glucometer 314 349 Random Glucose Calcium Total Bilirubin AST ALT Alkaline Phosphatase Total Protein Albumin Current Medications Generic Name Dose Route Start Last Admin Trade Name Freq PRN Reason Stop Dose Admin Albuterol Sulfate 1 puff 02/10/19 17:22 Ventolin Hfa Inhaler - IH Q6H PRN SHORTNESS OF BREATH Alprazolam 2 mg 02/10/19 10:00 02/11/19 09:59 Xanax - PO [address] Administration Aspirin 81 mg 02/10/19 10:00 02/11/19 09:59 Asa - PO [address] Administration Atorvastatin Calcium 80 mg 02/10/19 22:00 02/10/19 21:20 Lipitor - PO [address] Administration Budesonide/Formoterol Fumarate 2 puff 02/10/19 22:00 02/11/19 10:00 Symbicort 80/4.5mcg - IH [address] Administration Clopidogrel Bisulfate 75 mg 02/11/19 10:00 02/11/19 09:59 Plavix - PO [address] Administration Escitalopram Oxalate 20 mg 02/10/19 10:00 02/11/19 09:58 Lexapro - PO [address] Administration Gabapentin 800 mg 02/10/19 22:00 02/11/19 13:18 Neurontin - PO Not Given TID [facility] Heparin Sodium (Porcine) 5,000 unit 02/10/19 02:00 02/11/19 10:00 Heparin - SQ 5,000 unit Q8H-IV LANE Administration Insulin Aspart 1 vial 02/10/19 07:00 02/11/19 13:15 Novolog Vial Sliding Scale - SQ 8 unit TIDAC [facility] Administration Protocol Insulin Detemir 30 units 02/11/19 22:00 Levemir Vial SQ HS [facility] Losartan Potassium 25 mg 02/10/19 10:00 02/11/19 09:59 Cozaar - PO [address] Administration Metoclopramide HCl 10 mg 02/11/19 15:36 Reglan Injection - IVPUSH Q8H PRN NAUSEA AND/OR VOMITING Metoprolol Succinate 25 mg 02/10/19 10:00 02/11/19 09:59 Toprol Xl - PO [address] Administration Oxycodone HCl 30 mg 02/10/19 18:02 02/11/19 06:41 Roxicodone - PO 30 mg Q8H PRN Administration PAIN LEVEL 6-10 Ranitidine HCl 150 mg 02/11/19 10:00 02/11/19 09:59 Zantac - PO [address] Administration Topiramate 150 mg 02/10/19 22:00 02/11/19 09:59 Topamax - PO [address] Administration ASSESSMENT AND PLAN: This is a 53 year old woman with a history of CAD, [place], stents, HTN, hyperlipidemia, type 2 DM, anxiety who presented to the ED with RUQ abdominal pain, nausea, vomiting, and chest pain. 1. Abdominal pain with nausea and vomiting - Nausea and vomiting resolved but pain persists - CT A/P shows no acute process, 3.5 x 2.0 cm periumbilical fat-containing hernia, bilateral tubal ligation, 3 mm left hepatic lobe hypodensity, mild aortoiliac atherosclerotic disease - RUQ US shows slightly dense echotexture of liver (fatty infiltration vs hepatocellular disease), no gallstones - GI evaluation 2. Pleuritic chest pain - Troponin negative x 2 - Discontinue telemetry 3. Type 2 DM, uncontrolled, with peripheral neuropathy - Continue Levemir, Novolog sliding scale, Neurontin 4. HTN - Continue Toprol XL, Cozaar 5. Hyperlipidemia - Continue Lipitor 6. CAD, history of [place], stents - Continue aspirin, Plavix, Toprol XL, Lipitor 7. Anxiety - Continue Lexapro, Xanax 8. Chronic pain - Continue oxycodone SR, oxycodone IR as needed 9. Constipation - Possibly opioid-induced - Will wait for GI evaluation before starting treatment
--- NOTE | 2019-02-11 16:19 | EKG ---
Test Reason : Blood Pressure : / mmHG Vent. Rate : 097 BPM Atrial Rate : 097 BPM P-R Int : 126 ms QRS Dur : 090 ms QT Int : 362 ms P-R-T Axes : 076 046 021 degrees QTc Int : 459 ms NORMAL SINUS RHYTHM POSSIBLE LEFT ATRIAL ENLARGEMENT BORDERLINE ECG WHEN COMPARED WITH ECG OF 04-JAN-2019 08:50, NO SIGNIFICANT CHANGE WAS FOUND Confirmed by MD NOE, ERICH ([id number]) on 02/11/2019 4:18:47 PM Referred By: Confirmed By:ERICH LIU MD
--- NOTE | 2019-02-11 18:33 | CON.GI ---
Consult Consult Specialty:: GI Referred by:: [facility] Reason for Consultation:: Abdominal pain - History of Present Illness Chief Complaint: nausea, vomiting. History of Present Illness: 53F admitted for evaluation of abdominal pain, nausea, vomiting. Blood glucose remains elevated. CT scan performed with IV contrast was unrevealing for a source of abdominal pain as was abd US. biliary tract was non dilated. US also revealed patent portal vein. Per nursing the patient has left the floor and obtained food from a visitor and ate. She was made NPO per the primary team. She states that she is very hungry, however, "she has not been given food". She is actively on ASA and Plavix given h/o CAD s/p cardiac stenting. She admits to her blood glucose being elevated at home to the 600's and it is persistently poorly controlled. She denies ever having had an upper endoscopy or colonoscopy. She denies rectal bleeding, melena, chronic NSAID use, diarrhea. There is no family history of colon cancer. She gives a vague history about a surgery for her small bowel (? SBO). - History Source History Provided By: Patient, Medical Record Limitations to Obtaining History: Poor Historian - Past Medical History Cardio/Vascular: Yes: CAD, HTN Pulmonary: Yes: Asthma, COPD Gastrointestinal: Yes: Pancreatitis (Unclear how this has been diagnosed. In chart but patient did not mention this to me. ) Hepatobiliary: Yes: Other (Fatty liver on Abd US) ...: No Endocrine: Yes: Diabetes Mellitus - Past Surgical History Past Surgical History: Yes: Stent (Cardiac stent x 2) Additional Surgical History: BTL, ? 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) Place of : [facility] History of Recent Travel: No Home Medications - Allergies Allergies/Adverse Reactions: Allergies Allergy/AdvReac Type Severity Reaction Status Date / Time Penicillins Allergy Severe Verified 02/09/19 18:54 - Home Medications Home Medications: Ambulatory Orders Aspirin [ASA -] 81 mg PO DAILY 07/28/18 Alprazolam [Xanax] 2 mg PO DAILY 09/04/18 Atorvastatin Ca [Lipitor] 80 mg PO DAILY 09/04/18 Losartan Potassium 25 mg PO DAILY 09/04/18 Albuterol Sulfate Inhaler - [Ventolin HFA Inhaler -] 1 - 2 puff IH QID PRN 11/01 Clopidogrel Bisulfate [Plavix] 75 mg PO DAILY 11/01/18 Escitalopram Oxalate [Lexapro -] 20 mg PO DAILY 11/01/18 Gabapentin 800 mg PO TID 11/01/18 Lipase/Protease/Amylase [Shyla Dr 36,000 Units Capsule] 1 each PO TID 11/01/18 Quetiapine Fumarate [Seroquel] 300 mg PO HS 11/01/18 Topiramate [Topamax] 150 mg PO BID 11/01/18 Insulin Detemir [Levemir Flextouch] 42 unit SQ BID 11/02/18 Isosorbide Mononitrate [Imdur -] 30 mg PO DAILY tab.sr.24h 11/02/18 Gemfibrozil [Lopid -] 600 mg PO BID@0700,1630 #60 tablet 01/04/19 Famotidine [Pepcid] 20 mg PO DAILY 02/10/19 Fluticasone/Salmeterol [Advair 250-50 Diskus] 1 puff IH BID PRN 02/10/19 Insulin Lispro [Humalog] 10 units SQ HS 02/10/19 Meloxicam 15 mg PO DAILY 02/10/19 Metoprolol Succinate 100 mg PO DAILY 02/10/19 Ondansetron [Ondansetron Odt] 4 mg PO TID 02/10/19 Oxycodone HCl 5 mg PO QID PRN 02/10/19 Oxycodone HCl 30 mg PO TID PRN 02/10/19 Family Disease History - Family Disease History Family Disease History: Other: Father (: 70: complications from diabetes), Mother (alive: HTN), Son (1, healthy), Daughter (6, 1 from ? stomach cancer) Other Family History: Describes having 19 siblings: 1 of her sisters was treated for BCA Review of Systems - Review of Systems Constitutional: denies: Fever, Unintentional Wgt. Loss Cardiovascular: denies: Chest Pain Respiratory: denies: Cough Gastrointestinal: reports: Abdominal Pain, Constipation, Nausea, Vomiting. denies: Diarrhea, Melena, Rectal Bleeding Physical Exam-GI Vital Signs: Vital Signs Temperature 98.3 F 02/11/19 14:00 Pulse Rate 81 02/11/19 14:00 Respiratory Rate 20 02/11/19 14:00 Blood Pressure 96/61 02/11/19 14:00 O2 Sat by Pulse Oximetry (%) 99 02/11/19 08:44 Constitutional: Yes: Calm Eyes: No: Sclera Icterus Cardiovascular: Yes: Regular Rate and Rhythm. No: Murmur Respiratory: Yes: CTA Bilaterally Gastrointestinal Inspection: Yes: Scars (+ midline vertical pelvic surgical scar ) ...Auscultate: Yes: Normoactive Bowel Sounds ...Palpate: Yes: Soft. 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 Patient complains of abdominal pain yet wants to eat and apparently received food from an outside source. Advise: Glycemic control. Blood glucose continued to be persistently elevated. Suspect that this is contributing to her abdominal pain, nausea and vomiting Upper GI Series. Can have EGD and age appropriate screening colonoscopy as an outpatient once acute issues are resolved, extent of her cardiac history / function assessed and with plavix held for 5 days prior to the procedures. Protonix 20mg once daily Clear liquids Code(s): R10.9 - UNSPECIFIED ABDOMINAL PAIN Qualifiers: Abdominal location: generalized Qualified Code(s): R10.84 - Generalized abdominal pain
[2019-02-11] MEDS: PANTOPRAZOLE 20 MG TABLET (FP) PO SCH (19:04)
[2019-02-11] MEDS: ATORVASTATIN CA 80 MG TABLET (FP) PO SCH (21:59)
[2019-02-11] MEDS ORDERED: INSULIN (LEVEMIR) 100 UNITS/ML UNITS SQ SCH (22:00)
[2019-02-12] MEDS: HEPARIN NA (PORCINE) 5,000 UNITS/ML 1ML VIAL SQ SCH ×3 (01:54→10:05)
[2019-02-12] MEDS: INSULIN SLIDING SCALE (NOVOLOG) 1 VIAL SQ SCH ×2 (06:27→12:42)
[2019-02-12] MEDS: GABAPENTIN 400 MG CAPSULE (FP) PO SCH ×2 (06:27→15:04)
[2019-02-12 07:59] LABS: HEMATOCRIT 39.3 % (32.4-45.2); HEMOGLOBIN 13.3 GM/dL (10.7-15.3); MCH 31.7 pg (25.7-33.7); MCHC 33.8 g/dl (32.0-36.0); MEAN CELL VOLUME 93.5 fl (80-96); PLATELET COUNT 335 K/MM3 (134-434); RDW 14.8 % (11.6-15.6); WHITE BLOOD COUNT 8.1 K/mm3 (4.0-10.0)
[2019-02-12 08:39] LABS: BLOOD UREA NITROGEN 12.6 mg/dL (7-18); CALCIUM 9.4 mg/dL (8.5-10.1); CREATININE 0.8 mg/dL (0.55-1.3); POTASSIUM 3.8 mmol/L (3.5-5.1)
[2019-02-12] MEDS: BUDESONIDE/FORMETEROL FUMARATE 80/4.5 mcg INHALER IH SCH (09:38)
[2019-02-12] MEDS: ESCITALOPRAM OXALATE 20 MG TABLET (FP) PO SCH ×2 (09:38→10:06)
[2019-02-12] MEDS: CLOPIDOGREL BISULFATE 75 MG TABLET (FP) PO SCH ×2 (09:38→10:06)
[2019-02-12] MEDS: ASPIRIN 81 MG CHEWABLE TABLETS PO SCH ×2 (09:38→10:06)
[2019-02-12] MEDS: TOPIRAMATE 100 MG TABLET PO SCH ×2 (09:38→10:05)
[2019-02-12] MEDS: LOSARTAN POTASSIUM 25 MG TABLET PO SCH ×2 (09:38→10:06)
[2019-02-12] MEDS: ALPRAZolam 2 MG TABLET PO SCH ×2 (09:39→10:05)
[2019-02-12] MEDS: RANITIDINE HCL 150 MG TABLET (FP) PO SCH ×2 (09:39→10:06)
[2019-02-12] MEDS: metoPROLOL SUCCINATE 25 MG TAB.SR.24H (FP) PO SCH ×2 (09:39→10:06)
[2019-02-12] MEDS: PANTOPRAZOLE 20 MG TABLET (FP) PO SCH (10:06)
[2019-02-12] MEDS ORDERED: DOCUSATE SODIUM 100 MG CAPSULE (FP) PO SCH (11:00)
[2019-02-12] MEDS ORDERED: POLYETHYLENE GLYCOL 3350 119 GM BTL PO SCH (11:00)
--- NOTE | 2019-02-12 14:59 | PN ---
Teaching Attending Note Name of Resident: Roberta Burks ATTENDING PHYSICIAN STATEMENT I saw and evaluated the patient. I reviewed the resident's note and discussed the case with the resident. I agree with the resident's findings and plan as documented. SUBJECTIVE: No fever or chills. No abd pain , no N/V . has a sandwich and wants to eat. feels hungry OBJECTIVE: NAD Cv : RRR Lungs: CTAB Ext : No edema or erytehma ABd : soft, NT, ND , NL BS Ext : No edema ASSESSMENT AND PLAN: 53 y/o lady with h/o CAD, [place], HLp, HTN, DM , and anxiety who presented with Cp and Abd pain . 1- Abd pain /N/V: resolved. hungry . Abd exam unremarkable CT reviewed. upper GI series reviewed. Nl - will upgrade diet to diabetic - f/u with GI as outpt for EGD and colo - cont PPI after dc 2- CP : atypical . resolved 3- Uncontrolled DM : no signs of DKA - increase her levemir insulin to her home dose - SSI 4- Weight loss: w/u as out pt 5- constipation : bowel regimen at dc 6- L hepa tic lobe questionable cyst. f/u as out pt 7-HTN, HLP, CAD: cotn chronic meds dc today if she tolerates her food
[2019-02-12 15:09] VITALS: BP 96/59; PULSE 73; TEMP 98.4
--- NOTE | 2019-02-12 15:37 | PN.GI ---
GI Progress Note Subjective: Pt seen/examined at bedside, sitting up in bed, feeling better, asking for more food. States she has ongoing abdominal pain (for years), denies n/v. Sugars remain elevated. - Objective Vital Signs: Vital Signs Temperature 98.4 F 02/12/19 14:00 Pulse Rate 73 02/12/19 14:00 Respiratory Rate 20 02/12/19 14:00 Blood Pressure 96/59 L 02/12/19 14:00 O2 Sat by Pulse Oximetry (%) 97 02/12/19 08:11 Constitutional: Well Nourished, No Distress, Calm Cardiovascular: Yes: WNL, Regular Rate and Rhythm Respiratory: Yes: WNL, Regular, CTA Bilaterally ...Palpate: Yes: Other (Abd soft, nt, nd) Labs: CBC, BMP 02/12/19 06:51 02/12/19 06:51 INR, PTT INR 1.09 (0.83-1.09) 02/09/19 20:11 Problem List - Problems (1) Abdominal pain Assessment/Plan: Feeling better, tolerating regular diet. CT and UGI series without obvious abnormalities to explain symptoms. Sugars remain elevated and likely contributing to symptoms. Possible component of gastroparesis. HbA1C 10.8 (2018). No anemia. -Continue conservative measures for now -Diet as tolerated -PPI daily -Miralax daily -As noted previously pt would require endoscopic evaluation however since clinically improved can be pursued as outpt and would need to clarify if plavix could be safely held for 5-7 days prior to procedure. GE study may also be considered. -Continue optimization of glycemic control Code(s): R10.9 - UNSPECIFIED ABDOMINAL PAIN Qualifiers: Abdominal location: generalized Qualified Code(s): R10.84 - Generalized abdominal pain
[2019-02-12] MEDS ORDERED: INSULIN (LEVEMIR) 100 UNITS/ML UNITS SQ SCH (22:00)
--- NOTE | 2019-02-15 12:38 | DS ---
Physical Exam: SUBJECTIVE: Patient seen and examined by the bedside, AOx3, complaining of abdominal pain OBJECTIVE: PHYSICAL EXAM GENERAL: The patient is awake, alert, and fully oriented, in no acute distress. HEAD: Normal with no signs of trauma. EYES: PERRL, extraocular movements intact, sclera anicteric, conjunctiva clear. No ptosis. ENT: Ears normal, nares patent, oropharynx clear without exudates, moist mucous membranes. NECK: Trachea midline, full range of motion, supple. LUNGS: decreased breath sounds B/L HEART: Regular rate and rhythm, S1, S2 without murmur, rub or gallop, substernal tenderness to palpation ABDOMEN: Soft,mild tenderness in RUQ and RLQ, nondistended, normoactive bowel sounds, no guarding, no rebound, no hepatosplenomegaly, no masses. EXTREMITIES: 2+ pulses, warm, well-perfused, no edema. NEUROLOGICAL: Cranial nerves II through XII grossly intact. Normal speech, gait not observed. PSYCH: Normal mood, normal affect. LABS HOSPITAL COURSE: Date of Admission:02/10/19 53YO F with PMH significant for WI (s/p 2 stents in September), HTN, HLD, DM, and anxiety. She presented to the ER with RUQ abdominal pain associated with nausea and NBNB vomiting for 5 days. No associated fever, chills, SOB, or urinary symptoms. Also complains of pleuritic, substernal reproducible chest pain for 2 days. Date of Discharge: 02/15/19 Patient's WBC was initially 13.4, but went down to 9.1. CT Abdomen Pelvis showed a periumbilical hernia made up of fat, but no inflammation, gastritis, edema, and USG abdomen showed a dense echotexture, but no stones. Gastro was consulted and UGIS performed, which showed no abnormalities. She was advised outpatient followup for Endoscopy and colonoscopy. She was started on Protonix 20mg, as well as Colace and Miralax for her constipation. She was also found to have consistently elevated BG in the 300s and Hgb A1C in December 2018 was 10.8% . Her home med was changed to a sliding scale. Minutes to complete discharge: 37 Discharge Summary Reason For Visit: CHEST PAIN & VOMITING Condition: Improved - Instructions Diet, Activity, Other Instructions: You were admitted to the hospital because of pain in your abdomen. While you were here, you were seen by our First Line Supervisor, and we performed three different scans of your upper and lower abdomen (CT Scan, Ultrasound, and GI series). None of these scans showed anything that would require emergency treatment or surgery. We also performed a Chest X Ray, which did not show any abnormalities. While you were here, we treated you with medicine to manage your pain. From the results of your tests, we believe there is no need for emergency treatment at the hospital. You are now being discharged so you can follow up with our First Line Supervisor for further workup of your abdominal pain as an out patient. Medications: - Please do not take your night time Humalog. Instead we have started you on an insulin sliding scale. Check your blood sugar at night: If your blood sugar is 101-150, please take 0 units of insulin. If your blood sugar is 151-200, please take 2 units of insulin. If your blood sugar is 201-250, please take 4 units of insulin. If your blood sugar is 251-300, please take 6 units of insulin. If your blood sugar is 301-350, please take 8 units of insulin. If your blood sugar is 351-400, please take 10 units of insulin. If your blood sugar is more than 400, please take 12 units of insulin. It is extremely important that you take your insulin regularly. Your blood sugar levels have been dangerously high recently. Complications of diabetes include strokes, heart attacks, infections that may require amputations, kidney disease, and much more. Please monitor your blood glucose before each meal, and write them down in a notebook. Please bring this with you when you see your primary care physician (PCP). - Please start taking Protonix 20mg by mouth once per day. - Please continue taking Colace 100mg by mouth once per day for your constipation. - Please continue taking Miralax 17gm by mouth once per day for your constipation. - Please resume all your other home medications as prescribed. Follow up: Please make the following appointments within one week: - With your PCP. If you do not have one, you can make an appointment with Dr. Millard at [facility] in the [facility] - With our First Line Supervisor, Dr. Mayes. Additional Information: Please return to the Emergency Department if you have any of the following: Increasing pain in your abdomen, fever, shortness of breath, loss of consciousness, nausea, dizziness, vomiting, diarrhea, bleeding that will not stop, or persistent headache. you need repeat imaging of your liver due to possible cyst on the left side Referrals: Jag Mayes DO [Staff Physician] - 2 Weeks Disposition: HOME - Home Medications Comprehensive Discharge Medication List: Ambulatory Orders Aspirin [ASA -] 81 mg PO DAILY 07/28/18 Alprazolam [Xanax] 2 mg PO DAILY 09/04/18 Atorvastatin Ca [Lipitor] 80 mg PO DAILY 09/04/18 Losartan Potassium 25 mg PO DAILY 09/04/18 Albuterol Sulfate Inhaler - [Ventolin HFA Inhaler -] 1 - 2 puff IH QID PRN 11/01 Clopidogrel Bisulfate [Plavix] 75 mg PO DAILY 11/01/18 Escitalopram Oxalate [Lexapro -] 20 mg PO DAILY 11/01/18 Gabapentin 800 mg PO TID 11/01/18 Lipase/Protease/Amylase [Shyla Dr 36,000 Units Capsule] 1 each PO TID 11/01/18 Quetiapine Fumarate [Seroquel] 300 mg PO HS 11/01/18 Topiramate [Topamax] 150 mg PO BID 11/01/18 Insulin Detemir [Levemir Flextouch] 42 unit SQ BID 11/02/18 Isosorbide Mononitrate [Imdur -] 30 mg PO DAILY tab.sr.24h 11/02/18 Gemfibrozil [Lopid -] 600 mg PO BID@0700,1630 #60 tablet 01/04/19 Fluticasone/Salmeterol [Advair 250-50 Diskus] 1 puff IH BID PRN 02/10/19 Meloxicam 15 mg PO DAILY 02/10/19 Metoprolol Succinate 100 mg PO DAILY 02/10/19 Ondansetron [Zofran *Odt*] 4 mg PO TID 02/10/19 Oxycodone HCl 5 mg PO QID PRN 02/10/19 Oxycodone HCl 30 mg PO TID PRN 02/10/19 Docusate Sodium [Colace -] 100 mg PO DAILY capsule 02/12/19 Insulin Sliding Scale [Novolog Vial Sliding Scale -] See Protocol SQ TIDAC #2 pen 02/12/19 Pantoprazole Sodium [Protonix -] 20 mg PO DAILY #0 tablet.ec 02/12/19 Polyethylene Glycol 3350 [Miralax 119 gm Btl -] 17 gm PO DAILY bottle 02/12/19 This patient is new to me today: No Emergency Visit: Yes ED Registration Date: 02/10/19 Care time: The patient presented to the Emergency Department on the above date and was hospitalized for further evaluation of their emergent condition. Critical Care patient: No - Discharge Referral Referred to [facility] No ATTENDING PHYSICIAN STATEMENT I saw and evaluated the patient. I reviewed the resident's note and discussed the case with the resident. I agree with the resident's findings and plan as documented. SUBJECTIVE: OBJECTIVE: ASSESSMENT AND PLAN:
== END 2019-02-12 17:39 | disposition home or self-care (01) | DRG 74 ==
LOC: JER 18:52 → JERBED 21:42 → OBSVTOIN 02-10 00:26 → J4W 02-10 14:17
PROVIDERS: ADMIT Internal Medicine; ATTEND Internal Medicine
DX: E11.43 Type 2 diabetes mellitus with diabetic autonomic (poly)neuropathy (principal); K86.1 Other chronic pancreatitis; R07.89 Other chest pain; G40.89 Other seizures; K76.89 Other specified diseases of liver; I10 Essential (primary) hypertension; E78.5 Hyperlipidemia, unspecified; G47.33 Obstructive sleep apnea (adult) (pediatric); E11.42 Type 2 diabetes mellitus with diabetic polyneuropathy; F41.9 Anxiety disorder, unspecified; J44.9 Chronic obstructive pulmonary disease, unspecified; R10.84 Generalized abdominal pain; E11.65 Type 2 diabetes mellitus with hyperglycemia; R10.11 Right upper quadrant pain; K76.0 Fatty (change of) liver, not elsewhere classified; E66.9 Obesity, unspecified; Z68.30 Body mass index [BMI] 30.0-30.9, adult; K31.84 Gastroparesis; I25.10 Atherosclerotic heart disease of native coronary artery without angina pectoris; G89.29 Other chronic pain; K59.03 Drug induced constipation; T40.2X5A Adverse effect of other opioids, initial encounter; I25.2 Old myocardial infarction; Z95.5 Presence of coronary angioplasty implant and graft
CPT/HCPCS: 36415; 71045-TC-FY; 74177-TC; 74240-TC-FY; 76705-TC; 80048; 80053; 80307; 81003; 82550; 82962; 83605; 83690; 84484; 85025; 85027; 85610; 93005; 93010; 99285-25; G0378; J0131; J1644; J7030

== ENCOUNTER 2019-04-22 11:48 | Emergency (ER) | payer BC, OTHER ==
[2019-04-22 12:05] VITALS: BMI 29.6
--- NOTE | 2019-04-22 13:04 | EKG ---
Test Reason : Blood Pressure : / mmHG Vent. Rate : 074 BPM Atrial Rate : 074 BPM P-R Int : 140 ms QRS Dur : 076 ms QT Int : 402 ms P-R-T Axes : 055 035 043 degrees QTc Int : 446 ms NORMAL SINUS RHYTHM POSSIBLE LEFT ATRIAL ENLARGEMENT CANNOT RULE OUT ANTERIOR INFARCT , AGE UNDETERMINED ABNORMAL ECG WHEN COMPARED WITH ECG OF 10-FEB-2019 01:06, T WAVE INVERSION NO LONGER EVIDENT IN INFERIOR LEADS Confirmed by Tony Gamboa MD ([id number]) on 04/22/2019 1:03:57 PM Referred By: Confirmed By:Tony Gamboa MD
--- NOTE | 2019-04-22 13:20 | PDOC ---
History of Present Illness - General Chief Complaint: Chest Pain Stated Complaint: PANCREATIC PAIN Time Seen by Provider: 04/22/19 12:41 History Source: Patient Exam Limitations: No Limitations - History of Present Illness Initial Comments: 04/22/19 13:17 53 yo F with a hx acute pancreatitis (multiple episodes; most recent 04/12/2019 with unknown etiology), CAD (s/p 2x stents most recent 4 months ago; on plavix ( non compliant) and aspirin), DM with neuropathy, GERD, and anxiety presents to the emergency department with chest pain and epigastric pain. She describes the pain as sharp and non radiating. Located at the epigastric region and chest center. She states it feels like her previous pancreatitis episode. Per the patient, she states she is having concurrent vomiting (non bloody non billious) and SOB without palpitations and lightheadedness. Allergies: NKDA Social: Denies tobacco, alcohol, and substance abuse. 04/22/19 13:38 Past History - Past Medical History Allergies/Adverse Reactions: Allergies Allergy/AdvReac Type Severity Reaction Status Date / Time Penicillins Allergy Severe Verified 04/22/19 12:05 Home Medications: Ambulatory Orders Aspirin [ASA -] 81 mg PO DAILY 07/28/18 Alprazolam [Xanax] 2 mg PO PRN PRN 09/04/18 Atorvastatin Ca [Lipitor] 40 mg PO DAILY 09/04/18 Albuterol Sulfate Inhaler - [Ventolin HFA Inhaler -] 1 - 2 puff IH QID PRN 11/01 Clopidogrel Bisulfate [Plavix] 75 mg PO DAILY 11/01/18 Escitalopram Oxalate [Lexapro -] 20 mg PO DAILY 11/01/18 Gabapentin 800 mg PO TID 11/01/18 Lipase/Protease/Amylase [Shyla Kelly 36,000 Units Capsule] 1 each PO TID 11/01/18 Quetiapine Fumarate [Seroquel] 300 mg PO HS 11/01/18 Topiramate [Topamax] 150 mg PO BID 11/01/18 Insulin Detemir [Levemir Flextouch] 30 unit SQ BID 11/02/18 Isosorbide Mononitrate [Imdur -] 30 mg PO DAILY tab.sr.24h 11/02/18 Gemfibrozil [Lopid -] 600 mg PO BID@0700,1630 #60 tablet 01/04/19 Fluticasone/Salmeterol [Advair 250-50 Diskus] 1 puff IH BID PRN 02/10/19 Meloxicam 15 mg PO DAILY 02/10/19 Metoprolol Succinate 100 mg PO DAILY 02/10/19 Ondansetron [Zofran *Odt*] 4 mg PO TID 02/10/19 Oxycodone HCl 5 mg PO QID PRN 02/10/19 Oxycodone HCl 30 mg PO TID PRN 02/10/19 Docusate Sodium [Colace -] 100 mg PO DAILY capsule 02/12/19 Insulin Sliding Scale [Novolog Vial Sliding Scale -] See Protocol SQ TIDAC #2 pen 02/12/19 Pantoprazole Sodium [Protonix -] 20 mg PO DAILY #0 tablet.ec 02/12/19 Polyethylene Glycol 3350 [Miralax 119 gm Btl -] 17 gm PO DAILY bottle 02/12/19 Atorvastatin Ca [Lipitor] 40 mg PO HS 04/22/19 Cefdinir 300 mg PO DAILY 04/22/19 Clopidogrel Bisulfate [Plavix -] 75 mg PO DAILY #7 tablet 04/22/19 Insulin Lispro 12 unit SQ AC 04/22/19 Pantoprazole Suspension [Protonix Packets For Oral Suspension -] 40 mg PO DAILY 04/22/19 levETIRAcetam [Keppra -] 500 mg PO BID 04/22/19 Asthma: Yes Cardiac Disorders: Yes CVA: No COPD: No Diabetes: Yes GI Disorders: Yes (pancreatitis) HTN: Yes Hypercholesterolemia: Yes Liver Disease: No Seizures: Yes - Surgical History Cardiac Surgery: Yes (stents) - Psycho Social/Smoking Cessation Hx Smoking History: Current every day smoker Have you smoked in the past 12 months: Yes Number of Cigarettes Smoked Daily: 5 Cigars Per Day: 2 Information on smoking cessation initiated: No 'Breaking Loose' booklet given: 01/03/19 Hx Alcohol Use: No Drug/Substance Use Hx: No Substance Use Type: None Hx Substance Use Treatment: No Review of Systems - Review of Systems Able to Perform ROS?: Yes Is the patient limited Maltese proficient: No Constitutional: No: Chills, Diaphoresis, Fever, Weakness HEENTM: No: Eye Pain, Ear Pain, Nose Pain, Throat Pain, Mouth Pain Respiratory: Yes: Shortness of Breath. No: Cough, Hemoptysis Cardiac (ROS): Yes: Chest Pain. No: Lightheadedness, Palpitations, Syncope ABD/GI: Yes: Nausea, Vomiting, Abdominal cramping. No: Constipated, Diarrhea, Rectal Bleeding, Tarry Stools : No: Burning, Dysuria, Hematuria, Incontinence Musculoskeletal: No: Back Pain, Joint Pain, Neck Pain Integumentary: No: Bruising, Erythema, Rash Neurological: No: Headache, Numbness, Tingling, Tremors Psychiatric: No: Change in Appetite Endocrine: No: Unexplained Weight Gain Hematologic/Lymphatic: No: Anemia *Physical Exam - Vital Signs Last Vital Signs Temp Pulse Resp BP Pulse Ox 98 F 79 18 116/74 100 04/22/19 12:02 04/22/19 12:02 04/22/19 12:02 04/22/19 12:02 04/22/19 12:02 ED Treatment Course - LABORATORY CBC & Chemistry Diagram: 04/22/19 14:46 04/22/19 14:46 Discharge - Discharge Information Problems reviewed: Yes Clinical Impression/Diagnosis: Chest pain Condition: Good Disposition: HOME - Admission No - Additional Discharge Information Prescriptions: Clopidogrel Bisulfate [Plavix -] 75 mg PO DAILY #7 tablet - Follow up/Referral Referrals: Salma Leon MD [Primary Care Provider] - - Patient Discharge Instructions Patient Printed Discharge Instructions: DI for Atypical Chest Pain Additional Instructions: You were seen in the emergency department for the evaluation of your epigastric pain. Labs within normal limits. Imaging was within normal limits. Follow up with your primary medical doctor within 1 week after discharge. Please return to the emergency department with worsening pain. Thank you. - Post Discharge Activity
[2019-04-22 14:55] LABS: BASO % 0.5 % (0-2.0); EOS % 1.9 % (0-4.5); HEMATOCRIT 40.5 % (32.4-45.2); LYMPH % 43.2 % (8-40); MCH 30.7 pg (25.7-33.7); MCHC 32.1 g/dl (32.0-36.0); MEAN CELL VOLUME 95.7 fl (80-96); MEAN PLT VOLUME 8.5 fl (7.5-11.1); MONO % 5.3 % (3.8-10.2); NEUT % 49.1 % (42.8-82.8); PLATELET COUNT 463 K/MM3 (134-434); RBC 4.23 M/mm3 (3.60-5.2); RDW 15.1 % (11.6-15.6); WHITE BLOOD COUNT 12.5 K/mm3 (4.0-10.0)
[2019-04-22 15:02] VITALS: BP 102/60; PULSE 77; TEMP 98.6
--- NOTE | 2019-04-22 15:03 | PDOC ---
Attending Attestation - Resident Resident Name: NildaGilbert - ED Attending Attestation I have performed the following: I have examined & evaluated the patient, The case was reviewed & discussed with the resident, I agree w/resident's findings & plan - HPI HPI: 04/22/19 14:57 53y/o F HTN, high chol, CAD s/p stents, IDDM, h/o chronic pancreatitis recently discharged on 04/17 from hospital in [place], discharged on percocet but ran out, now p/w worsening epigastric pain and nbnb vomiting and diarrhea. no f/c. - Physicial Exam PE: 04/22/19 15:01 Vital signs stable Overall comfortable appearing lying in stretcher speaking full sentences No jaundice or pallor, moist mucosa Heart is regular, lungs are clear Abdomen is soft/nondistended. Tender in the epigastric and right upper quadrant region, no guarding or rebound. No CVA tenderness No edema - Medical Decision Making 04/22/19 15:03 53-year-old female with history of CAD, insulin-dependent diabetes, chronic pancreatitis with recent discharge for pancreatitis 5 days ago presents with worsening epigastric pain and vomiting in the setting of running out of her pain medication. Hemodynamically stable here without peritoneal findings on examination, presentation seems most consistent with gastritis versus acute on chronic pancreatitis. Labs, urinalysis EKG, chest x-ray IV fluids, pain control Reassess Heart Score/ECG Review #1 ECG reviewed & interpreted by me at: 11:58 General ECG Interpretation: Sinus Rhythm, Normal Rate (74), Normal Intervals ( qtc 446), No acute ischemic changes
[2019-04-22 15:08] LABS: INR 0.95 (0.83-1.09); PROTHROMBIN TIME (PATIENT) 11.2 SEC (9.7-13.0)
[2019-04-22 15:11] LABS: ACTIVATED PTT 31.4 SECONDS (25.2-36.5)
[2019-04-22] MEDS ORDERED: ACETAMINOPHEN 1000 MG/100 ML VIAL (NON FORMULARY) IVPB ONE (15:16)
[2019-04-22] MEDS ORDERED: ACETAMINOPHEN INJECTION 100 ML IVPB ONE (15:21)
[2019-04-22 15:33] LABS: AMYLASE 43 U/L (25-115); LIPASE 78 U/L (73-393)
[2019-04-22 15:35] LABS: ALBUMIN 3.4 g/dl (3.4-5.0); BILIRUBIN,TOTAL 0.3 mg/dL (0.2-1); BLOOD UREA NITROGEN 5.3 mg/dL (7-18); CALCIUM 9.8 mg/dL (8.5-10.1); CREATININE 0.6 mg/dL (0.55-1.3); POTASSIUM 4.9 mmol/L (3.5-5.1); TOT PROT 7.2 g/dl (6.4-8.2)
== END 2019-04-22 16:43 | disposition home or self-care (01) ==
LOC: JER 11:48
PROC: 3E033NZ Introduction of Analgesics, Hypnotics, Sedatives into Peripheral Vein, Percutaneous Approach (ICD-10-PCS; principal; 2019-04-22)
DX: R07.9 Chest pain, unspecified (principal); K86.1 Other chronic pancreatitis; I25.10 Atherosclerotic heart disease of native coronary artery without angina pectoris; I10 Essential (primary) hypertension; Z95.5 Presence of coronary angioplasty implant and graft; E11.40 Type 2 diabetes mellitus with diabetic neuropathy, unspecified; Z79.4 Long term (current) use of insulin; K21.9 Gastro-esophageal reflux disease without esophagitis; F41.9 Anxiety disorder, unspecified; Z79.82 Long term (current) use of aspirin; Z79.02 Long term (current) use of antithrombotics/antiplatelets; J45.909 Unspecified asthma, uncomplicated; G40.909 Epilepsy, unspecified, not intractable, without status epilepticus; E78.00 Pure hypercholesterolemia, unspecified; F17.210 Nicotine dependence, cigarettes, uncomplicated; Z88.0 Allergy status to penicillin
CPT/HCPCS: 36415; 71045-TC-FY; 80053; 82150; 83690; 84484; 85025; 85610; 85730; 93005; 93010; 96374; 99285-25; J0131

== ENCOUNTER 2019-12-10 21:02 | Observation (INO) | payer BC, OTHER ==
[2019-12-10 21:38] VITALS: BMI 25.6
[2019-12-10 22:13] LABS: BASO % 0.9 % (0-2.0); EOS % 1.7 % (0-4.5); HEMATOCRIT 42.9 % (32.4-45.2); HEMOGLOBIN 14.5 GM/dL (10.7-15.3); LYMPH % 53.4 % (8-40); MCH 32.3 pg (25.7-33.7); MCHC 33.8 g/dl (32.0-36.0); MEAN CELL VOLUME 95.5 fl (80-96); MEAN PLT VOLUME 8.8 fl (7.5-11.1); MONO % 6.5 % (3.8-10.2); NEUT % 37.5 % (42.8-82.8); PLATELET COUNT 356 K/MM3 (134-434); RBC 4.49 M/mm3 (3.60-5.2); RDW 14.3 % (11.6-15.6); WHITE BLOOD COUNT 9.5 K/mm3 (4.0-10.0)
[2019-12-10 22:51] LABS: ALBUMIN 3.5 g/dl (3.4-5.0); ALK PHOS 101 U/L (45-117); ANION GAP 10 MMOL/L (8-16); BILIRUBIN,TOTAL 0.5 mg/dL (0.2-1); BLOOD UREA NITROGEN 6.2 mg/dL (7-18); CALCIUM 9.6 mg/dL (8.5-10.1); CHLORIDE 99 mmol/L (98-107); CO2 26 mmol/L (21-32); CREATININE 0.8 mg/dL (0.55-1.3); POTASSIUM 3.7 mmol/L (3.5-5.1); SGOT/AST 10 U/L (15-37); SGPT/ALT 16 U/L (13-61); SODIUM 134 mmol/L (136-145); TOT PROT 7.3 g/dl (6.4-8.2)
[2019-12-10] MEDS ORDERED: SODIUM CHLORIDE 0.9% 500 ML INFUS.BAG IV ONE (23:00)
[2019-12-10 23:01] LABS: GLUCOSE,RANDOM 478 mg/dL (74-106)
[2019-12-10] MEDS ORDERED: QUEtiapine FUMARATE 200 MG TABLET PO ONE (23:38)
[2019-12-10] MEDS ORDERED: QUEtiapine FUMARATE 100 MG TABLET (FP) ONE (23:44)
[2019-12-11] MEDS ORDERED: Insulin (LOG) Aspart 100 UNITS/ML VIAL SQ ONE (00:46)
[2019-12-11] MEDS: INSULIN (LEVEMIR) 100 UNITS/ML UNITS SQ SCH (07:47)
[2019-12-11] MEDS: PANTOPRAZOLE 40 MG TABLET PO SCH (07:47)
[2019-12-11] MEDS: ASPIRIN COATED 81 MG TABLET.EC PO SCH (09:16)
[2019-12-11] MEDS: CLOPIDOGREL BISULFATE 75 MG TABLET (FP) PO SCH (09:16)
[2019-12-11] MEDS: ENOXAPARIN NA (PORCINE) 40 MG/0.4 ML DISP.SYRIN SQ SCH (09:45)
[2019-12-11] MEDS ORDERED: levETIRAcetam 500 MG TABLET (FP) PO SCH (10:00)
[2019-12-11] MEDS ORDERED: ALPRAZolam 2 MG TABLET PO PRN (17:03)
[2019-12-11] MEDS ORDERED: ALPRAZolam 1 MG TABLET PO PRN (17:07)
[2019-12-11] MEDS: RANOLAZINE E.R. 500 MG TABLET (FP) PO SCH (21:06)
[2019-12-11] MEDS: GABAPENTIN 300 MG CAPSULE PO SCH (21:06)
[2019-12-11] MEDS: ATORVASTATIN CA 40 MG TABLET (FP) PO SCH (21:06)
[2019-12-11] MEDS: INSULIN SLIDING SCALE (NOVOLOG) 1 VIAL SQ SCH (21:08)
[2019-12-11] MEDS ORDERED: QUEtiapine FUMARATE 300 MG TABLET PO SCH (22:00)
[2019-12-12] MEDS: GABAPENTIN 300 MG CAPSULE PO SCH ×3 (06:32→21:33)
[2019-12-12] MEDS: PANTOPRAZOLE 40 MG TABLET PO SCH (06:32)
[2019-12-12] MEDS: INSULIN SLIDING SCALE (NOVOLOG) 1 VIAL SQ SCH ×4 (06:33→21:34)
[2019-12-12] MEDS: INSULIN (LEVEMIR) 100 UNITS/ML UNITS SQ SCH ×2 (06:34→21:33)
[2019-12-12] MEDS ORDERED: PT OWN MED DRAWER 7, Y5N ONE (09:06)
[2019-12-12] MEDS ORDERED: LORazepam 2 MG/ML SDV VIAL IM PRN (12:12)
[2019-12-12] MEDS: CLOPIDOGREL BISULFATE 75 MG TABLET (FP) PO SCH (14:06)
[2019-12-12] MEDS: RANOLAZINE E.R. 500 MG TABLET (FP) PO SCH ×2 (14:06→21:33)
[2019-12-12] MEDS: ASPIRIN COATED 81 MG TABLET.EC PO SCH (14:07)
[2019-12-12] MEDS: LOSARTAN POTASSIUM 25 MG TABLET PO SCH (14:07)
[2019-12-12] MEDS: ENOXAPARIN NA (PORCINE) 40 MG/0.4 ML DISP.SYRIN SQ SCH (14:07)
[2019-12-12] MEDS ORDERED: INSULIN (NOVOLOG) ASPART 100 UNITS/ML 10ML VIAL ONE (21:29)
[2019-12-12] MEDS: ATORVASTATIN CA 40 MG TABLET (FP) PO SCH (21:33)
[2019-12-13] MEDS: GABAPENTIN 300 MG CAPSULE PO SCH ×3 (06:27→21:43)
[2019-12-13] MEDS: PANTOPRAZOLE 40 MG TABLET PO SCH (06:27)
[2019-12-13] MEDS: INSULIN SLIDING SCALE (NOVOLOG) 1 VIAL SQ SCH ×4 (06:32→21:43)
[2019-12-13] MEDS: INSULIN (LEVEMIR) 100 UNITS/ML UNITS SQ SCH ×2 (06:33→21:43)
[2019-12-13] MEDS: LOSARTAN POTASSIUM 25 MG TABLET PO SCH (09:53)
[2019-12-13] MEDS: ENOXAPARIN NA (PORCINE) 40 MG/0.4 ML DISP.SYRIN SQ SCH (09:53)
[2019-12-13] MEDS: ASPIRIN COATED 81 MG TABLET.EC PO SCH (09:53)
[2019-12-13] MEDS: RANOLAZINE E.R. 500 MG TABLET (FP) PO SCH ×2 (09:54→21:43)
[2019-12-13] MEDS: CLOPIDOGREL BISULFATE 75 MG TABLET (FP) PO SCH (09:54)
[2019-12-13] MEDS: ATORVASTATIN CA 40 MG TABLET (FP) PO SCH (21:43)
[2019-12-14] MEDS ORDERED: HALOPERIDOL LACTATE 5 MG/ML IM ONE (01:04)
[2019-12-14] MEDS: GABAPENTIN 300 MG CAPSULE PO SCH ×3 (06:17→21:51)
[2019-12-14] MEDS: PANTOPRAZOLE 40 MG TABLET PO SCH (06:17)
[2019-12-14] MEDS: INSULIN SLIDING SCALE (NOVOLOG) 1 VIAL SQ SCH ×4 (06:18→21:51)
[2019-12-14] MEDS: INSULIN (LEVEMIR) 100 UNITS/ML UNITS SQ SCH ×2 (06:18→21:51)
[2019-12-14] MEDS: ENOXAPARIN NA (PORCINE) 40 MG/0.4 ML DISP.SYRIN SQ SCH (10:00)
[2019-12-14] MEDS: CLOPIDOGREL BISULFATE 75 MG TABLET (FP) PO SCH (10:00)
[2019-12-14] MEDS: LOSARTAN POTASSIUM 25 MG TABLET PO SCH (10:00)
[2019-12-14] MEDS: RANOLAZINE E.R. 500 MG TABLET (FP) PO SCH ×2 (10:00→21:51)
[2019-12-14] MEDS: ASPIRIN COATED 81 MG TABLET.EC PO SCH (10:00)
[2019-12-14 13:09] LABS: HEMATOCRIT 39.7 % (32.4-45.2); HEMOGLOBIN 13.1 GM/dL (10.7-15.3); MCH 31.7 pg (25.7-33.7); MCHC 32.8 g/dl (32.0-36.0); MEAN CELL VOLUME 96.6 fl (80-96); MEAN PLT VOLUME 9.4 fl (7.5-11.1); PLATELET COUNT 291 K/MM3 (134-434); RBC 4.11 M/mm3 (3.60-5.2); RDW 14.5 % (11.6-15.6); WHITE BLOOD COUNT 10.2 K/mm3 (4.0-10.0)
[2019-12-14 13:37] LABS: BLOOD UREA NITROGEN 16.9 mg/dL (7-18); CALCIUM 9.1 mg/dL (8.5-10.1); CREATININE 0.7 mg/dL (0.55-1.3); POTASSIUM 4.7 mmol/L (3.5-5.1)
[2019-12-14] MEDS ORDERED: PT OWN MED DRAWER 7, Y5N ONE (13:59)
[2019-12-14] MEDS ORDERED: MAG HYDROX/AL HYDROX/SIMETH 30 ML UNIT-DOSE CUP PO PRN (13:59)
[2019-12-14] MEDS ORDERED: LORazepam 1 MG TABLET PO ONE (14:11)
[2019-12-14 18:51] VITALS: BP 118/78; PULSE 80; TEMP 98.7
[2019-12-14] MEDS: ATORVASTATIN CA 40 MG TABLET (FP) PO SCH (21:51)
[2019-12-14] MEDS ORDERED: MICONAZOLE NITRATE 2% VAGINAL CREAM 45 GM TUBE VG SCH (22:00)
== END 2019-12-15 00:17 | disposition home or self-care (01) ==
LOC: JER 21:02 → INTOOBSV 23:02 → JERBED 23:02 → UNDOADMOB 23:02 → J4W 12-11 05:08 → JERBED 12-11 05:08 → J4W 12-11 09:01 → JERBED 12-11 09:01
PROVIDERS: ADMIT Internal Medicine; ATTEND Internal Medicine
PROC: 3E023GC Introduction of Other Therapeutic Substance into Muscle, Percutaneous Approach (ICD-10-PCS; principal; 2019-12-11)
PROC: 3E013VG Introduction of Insulin into Subcutaneous Tissue, Percutaneous Approach (ICD-10-PCS; 2019-12-11)
DX: M94.0 Chondrocostal junction syndrome [Tietze] (principal); E11.40 Type 2 diabetes mellitus with diabetic neuropathy, unspecified; E11.65 Type 2 diabetes mellitus with hyperglycemia; T76.21XA Adult sexual abuse, suspected, initial encounter; I25.2 Old myocardial infarction; K21.9 Gastro-esophageal reflux disease without esophagitis; F41.9 Anxiety disorder, unspecified; Z86.718 Personal history of other venous thrombosis and embolism; I10 Essential (primary) hypertension; F23 Brief psychotic disorder; R10.2 Pelvic and perineal pain; E78.5 Hyperlipidemia, unspecified; K29.70 Gastritis, unspecified, without bleeding; I25.10 Atherosclerotic heart disease of native coronary artery without angina pectoris; Z95.5 Presence of coronary angioplasty implant and graft; Z87.19 Personal history of other diseases of the digestive system; K76.0 Fatty (change of) liver, not elsewhere classified; A74.9 Chlamydial infection, unspecified; F17.210 Nicotine dependence, cigarettes, uncomplicated; Z79.82 Long term (current) use of aspirin; Z79.4 Long term (current) use of insulin; Z88.0 Allergy status to penicillin; Z29.9 Encounter for prophylactic measures, unspecified
CPT/HCPCS: 36415; 71045-TC-FY; 71250-TC; 80048; 80053; 82550; 82962; 84484; 84702; 85025; 85027; 93005; 93010; 96372; 96375; 96376; 99285-25; G0378; U0003